=== PATIENT | male | born 1970 | race Caucasian/White ===

== ENCOUNTER 2021-02-20 12:23 | Inpatient (IN) | payer OTHER ==
[2021-02-20 13:01] LABS: BASOPHILS % (AUTO) 0.2 %; EOSINOPHILS # (AUTO) 0.1 10^3/uL (0.0-0.7); HCT - HEMATOCRIT 48.9 % (42.0-52.0); HGB - HEMOGLOBIN 16.5 g/dL (14.0-18.0); LYMPHOCYTES # (AUTO) 3.4 10^3/uL (1.5-3.5); LYMPHOCYTES % (AUTO) 23.3 %; MEAN CORPUSCULAR HEMOGLOBIN 30.7 pg (27.0-31.0); MEAN CORPUSCULAR HGB CONC 33.7 g/dL (32.0-36.0); MEAN CORPUSCULAR VOLUME 90.9 fL (80.0-94.0); MEAN PLATELET VOLUME 8.7 fL (7.4-11.4); MONOCYTES # (AUTO) 1.3 10^3/uL (0.0-1.0); MONOCYTES % (AUTO) 9.1 %; NEUTROPHILS # (AUTO) 9.6 10^3/uL (1.5-6.6); NEUTROPHILS % (AUTO) 66.1 %; PLT - PLATELET COUNT 421 10^3/uL (130-450); RED BLOOD COUNT 5.38 10^6/uL (4.70-6.10); RED CELL DISTRIBUTION WIDTH 13.2 % (12.0-15.0); WHITE BLOOD COUNT 14.5 x10^3/uL (4.8-10.8)
[2021-02-20 13:14] LABS: ALBUMIN 4.6 g/dL (3.2-5.5); ALBUMIN/GLOBULIN RATIO 1.1 (1.0-2.2); BILIRUBIN,TOTAL 0.9 mg/dL (0.2-1.0); POTASSIUM 4.5 mmol/L (3.5-5.0); TOTAL PROTEIN 8.8 g/dL (6.7-8.2)
--- NOTE | 2021-02-20 13:15 | ED Physician Documentation ---
PD HPI ABD PAIN - Stated complaint Stated Complaint: ABD PX - Chief complaint Chief Complaint: Abd Pain - History obtained from History obtained from: Patient - History of Present Illness Timing - details: Gradual onset, Waxing and waning Pain level max: 6 Pain level now: 4 Quality: Cramping, Aching, Sharp, Pain. No: Dull, Stabbing, Throbbing, Indigestion, Fullness/distended Location: All over / everywhere Radiation: No: Chest, , Lower back, Left flank, Left shoulder, Right flank, Right shoulder, Upper back Associated symptoms: Nausea, Vomiting, Constipation. No: Fever, Hematemesis, Diarrhea, Melena, Hematochezia, Dysuria Recently seen: Clinic - Additional information Additional information: Patient is a 51-year-old male who presents to the emergency department with intermittent abdominal pain for the past 3 to 4 weeks. Intermittent nausea and vomiting. He states he has been very constipated. Nothing makes it better or worse. Denies any fevers or chills. States he rarely drinks alcohol. He does smoke cigarettes regularly. Describes the pain as gas pain. It moves around the abdomen. Nonradiating. Patient has never had a colonoscopy. Patient has never had any abdominal surgeries. Review of Systems Constitutional: denies: Fever, Chills Respiratory: denies: Cough GI: reports: Nausea, Vomiting, Constipation. denies: Diarrhea Skin: denies: Rash Musculoskeletal: denies: Neck pain, Back pain PD PAST MEDICAL HISTORY - Past Medical History Past Medical History: Yes Cardiovascular: Hypertension, High cholesterol - Present Medications Home Medications: Ambulatory Orders Medication Instructions Recorded Confirmed Atorvastatin [Lipitor] 40 mg PO DAILY 02/20/21 02/20/21 Lisinopril [Zestril] 1 mg PO DAILY 02/20/21 02/20/21 Methylphenidate HCl 20 mg PO DAILY 02/20/21 02/20/21 [Methylphenidate ER] - Allergies Allergies/Adverse Reactions: Allergies Allergy/AdvReac Type Severity Reaction Status Date / Time No Known Drug Allergies Allergy Verified 02/20/21 12:42 - Living Situation Living Situation: reports: With family Living Arrangement: reports: At home - Social History Does the pt smoke?: Yes Smoking Status: Current every day smoker Does the pt drink ETOH?: Yes Does the pt have substance abuse?: No PD ED PE NORMAL - Vitals Vital signs reviewed: Yes - General General: Alert and oriented X 3, No acute distress, Well developed/nourished - HEENT HEENT: PERRL, Moist mucous membranes - Neck Neck: Supple, no meningeal sign - Cardiac Cardiac: RRR, Strong equal pulses - Respiratory Respiratory: No respiratory distress, Clear bilaterally - Abdomen Abdomen: Soft, Non distended, Other (Diffusely tender to palpation along the right side of the abdomen. Mild distention. No peritoneal signs.) - Derm Derm: Warm and dry - Extremities Extremities: No deformity - Neuro Neuro: Alert and oriented X 3 - Psych Psych: Normal mood, Normal affect Results - Vitals Vitals: Vital Signs - 24 hr 02/20/21 02/20/21 12:36 15:12 Temperature 36.7 C Heart Rate 86 80 Respiratory 15 16 Rate Blood Pressure 135/91 H 145/107 H O2 Saturation 96 100 Oxygen O2 Source Room air - Labs Labs: Laboratory Tests 02/20/21 02/20/21 02/20/21 12:54 12:54 13:12 WBC 14.5 H RBC 5.38 Hgb 16.5 Hct 48.9 MCV 90.9 MCH 30.7 MCHC 33.7 RDW 13.2 Plt Count 421 MPV 8.7 Neut # (Auto) 9.6 H Lymph # (Auto) 3.4 [place] # (Auto) 1.3 H Eos # (Auto) 0.1 Baso # (Auto) 0.0 Absolute Nucleated RBC 0.00 Nucleated RBC % 0.0 Sodium 137 Potassium 4.5 Chloride 100 L Carbon Dioxide 25 Anion Gap 12.0 BUN 17 Creatinine 1.0 Estimated GFR (MDRD) 79 L Glucose 113 H Calcium 10.0 Total Bilirubin 0.9 AST 21 ALT 20 Alkaline Phosphatase 194 H Total Protein 8.8 H Albumin 4.6 Globulin 4.2 Albumin/Globulin Ratio 1.1 Lipase 22 Urine Color DARK YELLOW Urine Clarity CLEAR Urine pH 6.0 Ur Specific [place] >=1.030 H Urine Protein 100 H Urine Glucose (UA) NEGATIVE Urine Ketones 15 H Urine Occult Blood NEGATIVE Urine Nitrite NEGATIVE Urine Bilirubin NEGATIVE Urine Urobilinogen 1 (NORMAL) Ur Leukocyte Esterase NEGATIVE Urine RBC 0-5 Urine WBC 0-3 Ur Squamous Epith Cells NONE SEEN Urine Bacteria Few Urine Mucus Moderate Strands Ur Microscopic Review INDICATED Urine Culture Comments NOT INDICATED - Rads (name of study) CT abd/pelvis Radiology: Prelim report reviewed, EMP read contemporaneously, See rad report PD MEDICAL DECISION MAKING - ED course Complexity details: reviewed results, re-evaluated patient, considered differential, d/w patient, d/w benefits consultant ED course: Patient is a 51-year-old male who presents to the emergency department with abdominal pain, constipation and vomiting. CT scan appears to have a liver mass as well as a likely colonic mass on image 60 of the transverse cuts and image 34 of the coronal cuts. I consulted Dr. Kemp, general surgery who will evaluate the patient and plan on colonoscopy in the morning. Also discussed with Dr. Pickett, hospitalist who accepts. Will place in observation. NG tube held at this time as the patient is not actively vomiting. This document was made in part using voice recognition software. While efforts are made to proofread this document, sound alike and grammatical errors may occur. Departure - Departure Disposition: ED Place in Observation Clinical Impression: Liver mass Bowel obstruction Qualifiers: Intestinal obstruction type: other intestinal obstruction Intestinal obstruction extent: partial Qualified Code(s): K56.690 - Other partial intestinal obstruction Condition: Stable
[2021-02-20] MEDS ORDERED: IOVERSOL 320 100 ML VIAL IVP ONE ×2 (13:18→15:13)
[2021-02-20] MEDS ORDERED: IOVERSOL 320 50 ML VIAL ONE (13:18)
[2021-02-20 13:36] LABS: GLUCOSE, URINE (UA) NEGATIVE (NEGATIVE); KETONES,URINE (UA) 15 mg/dL (NEGATIVE); LEUKOCYTE ESTERASE, URINE NEGATIVE (NEGATIVE); NITRITE,URINE NEGATIVE (NEGATIVE); OCCULT BLOOD,URINE NEGATIVE (NEGATIVE); PROTEIN,URINE 100 mg/dL (NEGATIVE); UROBILINOGEN,URINE 1 (NORMAL) E.U./dL (NORMAL)
[2021-02-20 13:41] LABS: BILIRUBIN,URINE NEGATIVE (NEGATIVE); CLARITY,URINE CLEAR (CLEAR); ICTOTEST,URINE NEGATIVE
[2021-02-20 14:03] LABS: BACTERIA,URINE Few /HPF (None Seen); MUCUS,URINE Moderate Strands; RBC,URINE 0-5 /HPF (0-5); SQUAMOUS EPITHELIAL CELL,UR NONE SEEN (<= Few); WBC,URINE 0-3 /HPF (0-3)
[2021-02-20] MEDS ORDERED: MORPHINE 2 MG/ML CARPUJECT IVP STA (14:36)
--- NOTE | 2021-02-20 15:32 | CT Report ---
PROCEDURE: Abdomen/Pelvis W INDICATIONS: diffuse abd pain CONTRAST: IV CONTRAST: Optiray 320 ml: 100 PO CONTRAST: Isovue 300 ml50 TECHNIQUE: After the administration of IV and oral contrast, 5 mm thick sections acquired from the diaphragms to the symphysis. 5 mm thick coronal and sagittal reformats were acquired. For radiation dose reducti on, the following was used: automated exposure control, adjustment of mA and/or kV according to anival ent size. COMPARISON: Correlation is made with lumbar spine MRI, 02/04/2013. FINDINGS: Image quality: Excellent. ABDOMEN: Lung bases: Mild dependent atelectasis can be seen. Heart size is normal. Solid organs: Within the left liver, there is a poorly defined low-density lesion seen, with decreas ed enhancement that measures nearly 10 cm. The liver overall demonstrates normal size. Gallbladder wall does not appear thickened. Biliary system is non dilated. Pancreas enhances norm ally. The spleen demonstrates normal size, without focal lesions. No adrenal nodules. Kidneys demons trate normal size and enhancement, without hydronephrosis. Peritoneum and bowel: The colon is prominent and filled with liquid stool. The transverse colon marlee ures 7.5 cm. The small bowel loops are prominent throughout, including the distal ileum and measure u p to 3 cm. A normal caliber, yet elongated appendix can be seen. No free fluid or air. Nodes and vessels: No retroperitoneal or mesenteric adenopathy by size criteria. Aorta and inferior vena cava are normal in size. Miscellaneous: No ventral hernias. PELVIS: Genitourinary: Bladder wall thickness is normal. Miscellaneous: No inguinal adenopathy. There is an inguinal hernia seen on the right, which contain s fat and fluid. A mild to containing left inguinal hernia can also be seen. Bones: No suspicious bony lesions. No vertebral body compression fractures. Mild levoconvex scolio tic curvature is seen. IMPRESSION: Prominent colon, which is filled with liquid stool. Prominence of the small bowel is als o seen. Diffuse enterocolitis is suspected. There is a poorly defined low-density lesion seen within the right liver, which measures nearly 10 cm . The appearance is nonspecific, although differential diagnosis includes an abscess and a mass. When clinically appropriate, please consider follow-up right upper quadrant ultrasound for further evalua tion. Incidental note is made of: Levoconvex scoliotic curvature Bilateral inguinal hernias, right larger than left Reviewed by: Brennan Peña MD on 02/20/2021 2:31 PM JERRELL Approved by: Brennan Peña MD on 02/20/2021 2:31 PM JERRELL Station ID: [id number]
[2021-02-20] MEDS ORDERED: LACTATED RINGERS 1,000 ML IV ONE (16:25)
--- NOTE | 2021-02-20 16:25 | HISTORY & PHYSICAL EXAMINATION ---
Chief Complaint - Chief Complaint Chief Complaint: Abdominal pain History of Present Illness - Admitted From Admitted From:: Home - History Obtained From Records Reviewed: Yes History obtained from: Patient, Spouse, ER Physician, EMR - History of Present Illness HPI Comment/Other: This is a 51-year-old male with a past medical history significant for hypertension who presents today complaining of abdominal pain associated with nausea vomiting. He states about 2 to 3 months ago he started to develop abdominal bloating and distention. This progressed over the past 2 to 3 days where he has had significant left lower quadrant abdominal pain that now radiates throughout his lower abdomen. He states he been unable to keep down any fluids whatsoever. He has only been able to keep down liquids. He believes he has lost about 12 pounds over the past couple of weeks due to decreased appetite and concern over his nausea and vomiting. He reports no fevers or chills. He believes he is passing gas every once in a while. He was prescribed a laxative recently without improvement in his symptoms. He has never had a colonoscopy or abdominal surgeries. He does not today that his mother has a history of colon cancer and he believes one of his younger brothers may have history of colon cancer. CT in the emergency department after review with general surgery and the emergency room physician was concerning for potential colonic mass causing partial small bowel obstruction. He was also noted to have liver mass. Given these findings, medicine was asked to place patient in observation for colonoscopy tomorrow. History - Past Medical History Cardiovascular: reports: Hypertension, High cholesterol - Family & Social History Family History Comment/Other: His mother was diagnosed with colon cancer and needed a colon resection. He believes his younger brother may also have a history of colon cancer. He has a brother with a history of heart disease who recently underwent CABG. Both of his grandfathers also had a history of heart disease. Living arrangement: At home Living Situation: With spouse/s.o. Social History Notes: He lives at home with his . He does not currently work. He smoked about half a pack a day since the age of 9. He rarely drinks alcohol. Meds/Allgy - Home Medications Home Medications: Ambulatory Orders Medication Instructions Recorded Confirmed Atorvastatin [Lipitor] 40 mg PO DAILY 02/20/21 02/20/21 Lisinopril [Zestril] 1 mg PO DAILY 02/20/21 02/20/21 Methylphenidate HCl 20 mg PO DAILY 02/20/21 02/20/21 [Methylphenidate ER] - Allergies Allergies/Adverse Reactions: Allergies Allergy/AdvReac Type Severity Reaction Status Date / Time No Known Drug Allergies Allergy Verified 02/20/21 12:42 Review of Systems - Constitutional Constitutional: reports: Chills, Poor appetite, Weight loss. denies: Fatigue, Fever - Cardiovascular Cariovascular: denies: Chest pain, Lightheadedness, Exertional dyspnea, Decr. exercise tolerance - Respiratory Respiratory: denies: SOB at rest, SOB with exertion - Gastrointestinal Gastrointestinal: reports: Abdominal pain, Abdominal distention, Constipation, Change in bowel habits, Nausea, Vomiting, Bloating, Poor appetite. denies: Black stools, Bloody stools, Coffee grounds emesis - Genitourinary Genitourinary: denies: Dysuria, Frequency, Urgency, Hematuria - Musculoskeletal Musculoskeletal: reports: Back pain. denies: Muscle pain - Integumentary Integumentary: denies: Rash - Neurological Neurological: denies: General weakness, Focal weakness, Dizziness - All Other Systems All Other Systems: reports: Reviewed and negative Prior Level of Functionality: He is independent with his ADLs. Exam - Vital Signs Reviewed Vital Signs: Yes Vital Signs: Vital Signs x48h Temp Pulse Resp BP Pulse Ox 02/20/21 15:12 80 16 145/107 H 100 02/20/21 12:36 36.7 C 86 15 135/91 H 96 - Physical Exam General Appearance: positive: No acute distress, Alert Eyes Bilateral: positive: Normal inspection, Conjunctivae nml ENT: positive: ENT inspection nml Neck: positive: Nml inspection Respiratory: positive: No respiratory distress. negative: Wheezes, Rales Cardiovascular: positive: Regular rate & rhythm, No murmur. negative: Tachycardia Abdomen: positive: Nml bowel sounds, Tenderness (He has diffuse tenderness throughout the lower abdomen.). negative: No distention (Mild abdominal distention), Guarding, Rebound Skin: positive: Warm, Dry Extremities: positive: No pedal edema Neurologic/Psychiatric: positive: Oriented x3, Motor nml. negative: Disoriented to person, Disoriented to place, Disoriented to time Conclusion/Plan - Problem List (1) Bowel obstruction Conclusion/Plan: Clinically he appears to have a partial bowel obstruction. CT after reviewing with the emergency room physician and general surgery appears to be concerning for potential colon mass which could be causing the obstruction. Given this, he will be placed in observation for colonoscopy tomorrow and based off of that finding, he may need surgical intervention. He will be n.p.o. at midnight. Morphine as needed for pain control. Zofran as needed for nausea. Appreciate general surgery input. Qualifiers: Intestinal obstruction type: other intestinal obstruction Intestinal obstruction extent: partial Qualified Code(s): K56.690 - Other partial intestinal obstruction (2) Liver mass Conclusion/Plan: CT revealed a 10 cm liver mass. Low suspicion for an abscess based off of clinical presentation. Will order an ultrasound for further evaluation. (3) Hypertension Conclusion/Plan: He is currently hypertensive. He reports being noncompliant with his home lisinopril. We will look to resume this if his blood pressure remains elevated. - Lab Results Fish Bones: 02/20/21 12:54 02/20/21 12:54 Core Measures - Anticipated LOS I expect patient to be DC'd or transferred within 96 hours.: Yes - Issues Hospital Issues and Management Plan: 51-year-old male presents with abdominal pain associated with vomiting and constipation. Concern for potential colon mass causing partial bowel obstruction. Plan is for colonoscopy tomorrow with general surgery. - DVT/VTE - Prophylaxis VTE/DVT Device ordered at admit?: Yes VTE/DVT Prophylaxis med ordered at admit?: Yes
[2021-02-20 17:51] LABS: B. PARAPERTUSSIS- RESP PCR PAN NOT DETECTED; B. PERTUSSIS- RESP PCR PANEL NOT DETECTED; C. PNEUMONIAE- RESP PCR PANEL NOT DETECTED; CORONAVIRUS 229E-RESP PCR NOT DETECTED; CORONAVIRUS HKU1-RESP PCR NOT DETECTED; CORONAVIRUS NL63-RESP PCR NOT DETECTED; CORONAVIRUS OC43-RESP PCR NOT DETECTED; HUMAN METAPNEUMOVIRUS NOT DETECTED; INFLUENZA A- RESP PCR PANEL NOT DETECTED; INFLUENZA B - RESP PCR PANEL NOT DETECTED; M. PNEUMONIAE- RESP PCR PANEL NOT DETECTED; PARAINFLUENZA VIRUS 1 NOT DETECTED; PARAINFLUENZA VIRUS 2 NOT DETECTED; PARAINFLUENZA VIRUS 3 NOT DETECTED; PARAINFLUENZA VIRUS 4 NOT DETECTED; RHINOVIRUS/ENTEROVIRUS NOT DETECTED; RSV- RESP PCR PANEL NOT DETECTED; SARS-CoV-2 -RESP PCR PANEL NOT DETECTED
[2021-02-20] MEDS: SODIUM CHLORIDE FLUSH 0.9% 10 ML SYRINGE IVP SCH (17:52)
[2021-02-20] MEDS: LACTATED RINGERS 1,000 ML IV SCH (18:37)
[2021-02-20] MEDS: MORPHINE 2 MG/ML CARPUJECT IVP PRN (19:28)
[2021-02-20] MEDS: ONDANSETRON 4 MG/2 ML VIAL IVP PRN (19:28)
[2021-02-20] MEDS: SODIUM CHLORIDE FLUSH 0.9% 10 ML SYRINGE IVP PRN (19:28)
--- NOTE | 2021-02-20 22:28 | Ultrasound Report ---
PROCEDURE: Abdomen Limited INDICATIONS: Liver mass on CT. TECHNIQUE: Real-time focused scanning was performed of the abdomen, with image documentation. COMPARISON: CT abdomen and pelvis with contrast. FINDINGS: Liver is heterogeneous in echotexture. There is a heterogeneous [id number] solid m ass with irregular border in the left hepatic lobe measuring 8.0 x 8.5 x 8.7 cm. There is internal va scularity on Doppler ultrasound within the mass. Small gallstones are present in gallbladder. No gallbladder wall thickening. There is trace perichole cystic fluid. No sonographic Talley sign. Right kidney is not well seen because of overlying bowel gas. IMPRESSION: 1. A large heterogeneous solid mass with iso to-hyperechoic echotexture within the left hepatic lobe measuring 8.0 x 8.5 x 5.7 cm. The sonographic appearance does not suggest a benign hepatic hemangioma . Hepatic protocol CT or MRI is recommended for follow-up evaluation. If clinically indicated, this m ass can be biopsied under CT or ultrasound guidance. 2. Cholelithiasis. There is no gallbladder wall thickening. Trace pericholecystic fluid is noted. Reviewed by: Corky Weinstein MD on 02/20/2021 10:27 PM PDT Approved by: Corky Weinstein MD on 02/20/2021 10:27 PM PDT Station ID: [id number]
[2021-02-21] MEDS: ACETAMINOPHEN 325 MG TABLET PO PRN (00:02)
[2021-02-21] MEDS: SODIUM CHLORIDE FLUSH 0.9% 10 ML SYRINGE IVP SCH ×3 (00:05→17:09)
[2021-02-21] MEDS: LACTATED RINGERS 1,000 ML IV SCH ×3 (04:22→20:57)
[2021-02-21 05:56] LABS: BASOPHILS % (AUTO) 0.4 %; EOSINOPHILS # (AUTO) 0.3 10^3/uL (0.0-0.7); EOSINOPHILS % (AUTO) 3.1 %; HCT - HEMATOCRIT 42.6 % (42.0-52.0); HGB - HEMOGLOBIN 14.3 g/dL (14.0-18.0); LYMPHOCYTES # (AUTO) 3.3 10^3/uL (1.5-3.5); LYMPHOCYTES % (AUTO) 32.1 %; MEAN CORPUSCULAR HEMOGLOBIN 30.8 pg (27.0-31.0); MEAN CORPUSCULAR HGB CONC 33.6 g/dL (32.0-36.0); MEAN CORPUSCULAR VOLUME 91.6 fL (80.0-94.0); MONOCYTES # (AUTO) 0.9 10^3/uL (0.0-1.0); MONOCYTES % (AUTO) 9.2 %; NEUTROPHILS # (AUTO) 5.6 10^3/uL (1.5-6.6); NEUTROPHILS % (AUTO) 54.9 %; PLT - PLATELET COUNT 369 10^3/uL (130-450); RED BLOOD COUNT 4.65 10^6/uL (4.70-6.10); RED CELL DISTRIBUTION WIDTH 13.2 % (12.0-15.0); WHITE BLOOD COUNT 10.1 x10^3/uL (4.8-10.8)
[2021-02-21 06:05] LABS: CALCIUM 8.8 mg/dL (8.5-10.3); CREATININE 0.8 mg/dL (0.6-1.2); MAGNESIUM 2.1 mg/dL (1.7-2.8); POTASSIUM 4.3 mmol/L (3.5-5.0)
[2021-02-21] MEDS: ENOXAPARIN 40 MG/0.4 ML SYRINGE SUBQ SCH (08:31)
--- NOTE | 2021-02-21 09:44 | PROVIDER PROGRESS NOTE ---
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 Weight loss. Change in bowel function. Family history of colon cancer. Obstructive symptoms. Need for diagnostic colonoscopy. Objective Afebrile hemodynamically acceptable General Appearance: positive: No acute distress Eyes Bilateral: positive: Normal inspection ENT: positive: ENT inspection nml Neck: positive: Nml inspection Respiratory: positive: Chest non-tender, No respiratory distress, Breath sounds nml. negative: Wheezes, Rales, Rhonchi Cardiovascular: positive: Regular rate & rhythm Abdomen: Softly distended. No rebound or guarding. Extremities: positive: Non-tender, Full ROM, Nml appearance Neurologic/Psychiatric: positive: Oriented x3, CN's nml (2-12) Impression/Plan Colonoscopy indicated for diagnostic. Symptoms are as follows obstruction and abnormal imaging. Risks and benefits discussed at length. Informed consent obtained. Risks include but are not limited to, bleeding, infection, perforation, missed lesions, injury to local structures, need for further surgeries, and the periprocedural/sedation risks of heart attack stroke and . Patient was advised if any concerning areas were noted these would be sampled if too big to resect or performed for excision if within reasonable limits for endoscopic intervention. Please note that voice recognition software was used to transcribe this note and inadvertent errors might persist in spite of review and editing. I am obliged to you for your attention. I am thankful to you for allowing me to participate with you in this care of this patient.
--- NOTE | 2021-02-21 11:18 | ANESTHESIA ---
Pre-Anesthesia VS, & Labs - Diagnosis Colon mass - Procedure colonoscopy Vital Signs: Temp Pulse Resp BP Pulse Ox 37.0 C 71 18 121/88 H 94 02/21/21 08:06 02/21/21 08:06 02/21/21 08:06 02/21/21 08:06 02/21/21 08:06 Height: 5 ft 9 in Weight (kg): 82.962 kg Body Mass Index: 27.0 BMI Classification: Overweight - NPO >8 hours - Lab Results Current Lab Results: Laboratory Tests 02/21/21 05:16: Sodium 133 L, Potassium 4.3, Chloride 98 L, Carbon Dioxide 27, Anion Gap 8.0, BUN 13, Creatinine 0.8, Estimated GFR (MDRD) 102, Glucose 97, Calcium 8.8, Magnesium 2.1 02/21/21 05:16: WBC 10.1, RBC 4.65 L, Hgb 14.3, Hct 42.6, MCV 91.6, MCH 30.8, MCHC 33.6, RDW 13.2, Plt Count 369, MPV 9.0, Neut # (Auto) 5.6, Lymph # (Auto) 3.3, [place] # (Auto) 0.9, Eos # (Auto) 0.3, Baso # (Auto) 0.0, Absolute Nucleated RBC 0.00, Nucleated RBC % 0.0 02/20/21 12:54: Sodium 137, Potassium 4.5, Chloride 100 L, Carbon Dioxide 25, Anion Gap 12.0, BUN 17, Creatinine 1.0, Estimated GFR (MDRD) 79 L, Glucose 113 H , Calcium 10.0, Total Bilirubin 0.9, AST 21, ALT 20, Alkaline Phosphatase 194 H, Total Protein 8.8 H, Albumin 4.6, Globulin 4.2, Albumin/Globulin Ratio 1.1, Lipase 22 02/20/21 12:54: WBC 14.5 H, RBC 5.38, Hgb 16.5, Hct 48.9, MCV 90.9, MCH 30.7, MCHC 33.7, RDW 13.2, Plt Count 421, MPV 8.7, Neut # (Auto) 9.6 H, Lymph # (Auto) 3.4, [place] # (Auto) 1.3 H, Eos # (Auto) 0.1, Baso # (Auto) 0.0, Absolute Nucleated RBC 0.00, Nucleated RBC % 0.0 Fish Bones: 02/21/21 05:16 02/21/21 05:16 Home Medications and Allergies Home Medications: Ambulatory Orders Atorvastatin [Lipitor] 40 mg PO DAILY 02/20/21 Lisinopril [Zestril] 1 mg PO DAILY 02/20/21 Methylphenidate HCl [Methylphenidate ER] 20 mg PO DAILY 02/20/21 Active Medications Acetaminophen (Acetaminophen 325 Mg Tablet) 650 mg PO Q4HR PRN PRN Reason: Pain 1 to 4 Last Admin: 02/21/21 00:02 Dose: 650 mg Documented by: Enoxaparin Sodium (Enoxaparin 40 Mg/0.4 Ml Syringe) 40 mg SUBQ DAILY [facility] Last Admin: 02/21/21 08:31 Dose: 40 mg Documented by: Lactated Ringer's (Lr) 1,000 mls @ 100 mls/hr IV .Q10H [facility] Last Admin: 02/21/21 04:22 Dose: 100 mls/hr Documented by: Morphine Sulfate (Morphine 2 Mg/Ml Carpuject) 2 mg IVP Q2HR PRN PRN Reason: Pain 8 to 10 Last Admin: 02/20/21 19:28 Dose: 2 mg Documented by: Ondansetron HCl (Ondansetron 4 Mg/2 Ml Vial) 4 mg IVP Q6HR PRN PRN Reason: Nausea / Vomiting Last Admin: 02/20/21 19:28 Dose: 4 mg Documented by: Sodium Chloride (Sodium Chloride Flush 0.9% 10 Ml Syringe) 10 ml IVP PRN PRN PRN Reason: NEEDED PER PROVIDER ORDERS Last Admin: 02/20/21 19:28 Dose: 10 ml Documented by: Sodium Chloride (Sodium Chloride Flush 0.9% 10 Ml Syringe) 10 ml IVP 0100,0900,1700 [facility] Last Admin: 02/21/21 08:46 Dose: Not Given Documented by: Atorvastatin [Lipitor] 40 mg PO DAILY 02/20/21 Lisinopril [Zestril] 1 mg PO DAILY 02/20/21 Methylphenidate HCl [Methylphenidate ER] 20 mg PO DAILY 02/20/21 Allergies/Adverse Reactions: Allergies Allergy/AdvReac Type Severity Reaction Status Date / Time No Known Drug Allergies Allergy Verified 02/20/21 12:42 Anes History & Medical History - Anesthetic History Anesthesia Complications: reports: No previous complications - Medical History Cardiovascular: reports: Hypertension, High cholesterol Pulmonary: reports: None Gastrointestinal: reports: Other Urinary: reports: None Neuro: reports: None Musculoskeletal: reports: None Endocrine/Autoimmune: reports: None Blood Disorders: reports: None Skin: reports: None Smoking Status: Current every day smoker Psychosocial: reports: No issues indicated History of Cancer?: No - Surgical History Orthopedic: reports: Other (wrist) Exam General: Alert, Oriented x3, Cooperative, No acute distress Dental: WNL Mouth Openin Fingerbreadth Neck Mobility: Normal Mallampati classification: II Thyromental Distance: 4-6 cm Mental/Cognitive Status: Alert/Oriented X3, Normal for patient Plan Anesthesia Type: Total IV Consent for Procedure(s) Verified and Reviewed: Yes Code Status: Attempt Resuscitation ASA classification: 2-Mild systemic disease Is this case an emergency?: No
--- NOTE | 2021-02-21 11:20 | PHARMACY PROGRESS NOTE ---
- Best Possible Medication History Admit Date and Time: 02/20/21 3669 Processed by: Nursing Medication History completed: Yes As the person ultimately responsible for medication therapy, providers are able to order a medication from an existing home medication list in [facility] via the "Reconcile Routine" prior to Confirmation of that medication by support associate. Such practice is discouraged except when the physician, in their clinical judgment, deems that a medical need exists for a medication without regard to previous use.
[2021-02-21] MEDS: MORPHINE 2 MG/ML CARPUJECT IVP PRN ×3 (13:33→22:06)
[2021-02-21] MEDS ORDERED: PROPOFOL 200 MG/20 ML VIAL IVP ONE (13:46)
[2021-02-21] MEDS: ONDANSETRON 4 MG/2 ML VIAL IVP PRN (14:01)
--- NOTE | 2021-02-21 14:01 | PROVIDER PROGRESS NOTE ---
Subjective - Prog Note Date Prog Note Date: 02/21/21 - Subjective Subjective: He was doing well up until the NG tube was placed this afternoon. He complains of discomfort due to this. Current Medications - Current Medications Current Medications: Active Medications Acetaminophen (Acetaminophen 325 Mg Tablet) 650 mg PO Q4HR PRN PRN Reason: Pain 1 to 4 Last Admin: 02/21/21 00:02 Dose: 650 mg Documented by: Enoxaparin Sodium (Enoxaparin 40 Mg/0.4 Ml Syringe) 40 mg SUBQ DAILY [facility] Last Admin: 02/21/21 08:31 Dose: 40 mg Documented by: Lactated Ringer's (Lr) 1,000 mls @ 100 mls/hr IV .Q10H [facility] Last Admin: 02/21/21 13:33 Dose: 100 mls/hr Documented by: Morphine Sulfate (Morphine 2 Mg/Ml Carpuject) 2 mg IVP Q2HR PRN PRN Reason: Pain 8 to 10 Last Admin: 02/21/21 13:33 Dose: 2 mg Documented by: Ondansetron HCl (Ondansetron 4 Mg/2 Ml Vial) 4 mg IVP Q6HR PRN PRN Reason: Nausea / Vomiting Last Admin: 02/21/21 14:01 Dose: 4 mg Documented by: Sodium Chloride (Sodium Chloride Flush 0.9% 10 Ml Syringe) 10 ml IVP PRN PRN PRN Reason: NEEDED PER PROVIDER ORDERS Last Admin: 02/20/21 19:28 Dose: 10 ml Documented by: Sodium Chloride (Sodium Chloride Flush 0.9% 10 Ml Syringe) 10 ml IVP 0100,0900,1700 [facility] Last Admin: 02/21/21 08:46 Dose: Not Given Documented by: Atorvastatin [Lipitor] 40 mg PO DAILY 02/20/21 Lisinopril [Zestril] 1 mg PO DAILY 02/20/21 Methylphenidate HCl [Methylphenidate ER] 20 mg PO DAILY 02/20/21 Objective - Vital Signs/Intake & Output Reviewed Vital Signs: Yes Vital Signs: Vital Signs x48h Temp Pulse Resp BP Pulse Ox 02/21/21 11:37 36.8 C 75 18 137/86 H 95 02/21/21 08:06 37.0 C 71 18 121/88 H 94 Intake & Output: Intake & Output 02/18/21 02/19/21 02/20/21 02/21/21 23:59 23:59 23:59 23:59 Intake Total 1575 1838.333 Balance 1575 1838.333 - Objective General Appearance: positive: Alert, Mild distress Eyes Bilateral: positive: Normal inspection, Conjunctivae nml ENT: positive: ENT inspection nml, Other (NG tube in place.) Respiratory: positive: No respiratory distress. negative: Wheezes, Rales Cardiovascular: positive: Regular rate & rhythm, No murmur. negative: Tachycardia Skin: positive: Warm, Dry Extremities: positive: No pedal edema Neurologic/Psychiatric: positive: Motor nml. negative: Disoriented to person, Disoriented to place, Disoriented to time - Lab Results Fish Bones: 02/21/21 05:16 02/21/21 05:16 Other Labs: Lab Results x24hrs 02/21/21 02/21/21 02/20/21 Range/Units 05:16 05:16 16:48 WBC 10.1 (4.8-10.8) x10^3/uL RBC 4.65 L (4.70-6.10) 10^6/uL Hgb 14.3 (14.0-18.0) g/dL Hct 42.6 (42.0-52.0) % MCV 91.6 (80.0-94.0) fL MCH 30.8 (27.0-31.0) pg MCHC 33.6 (32.0-36.0) g/dL RDW 13.2 (12.0-15.0) % Plt Count 369 (130-450) 10^3/uL MPV 9.0 (7.4-11.4) fL Neut # (Auto) 5.6 (1.5-6.6) 10^3/uL Lymph # (Auto) 3.3 (1.5-3.5) 10^3/uL [place] # (Auto) 0.9 (0.0-1.0) 10^3/uL Eos # (Auto) 0.3 (0.0-0.7) 10^3/uL Baso # (Auto) 0.0 (0.0-0.1) 10^3/uL Absolute Nucleated RBC 0.00 x10^3/uL Nucleated RBC % 0.0 /100WBC Sodium 133 L (135-145) mmol/L Potassium 4.3 (3.5-5.0) mmol/L Chloride 98 L (101-111) mmol/L Carbon Dioxide 27 (21-32) mmol/L Anion Gap 8.0 (6-13) BUN 13 (6-20) mg/dL Creatinine 0.8 (0.6-1.2) mg/dL Estimated GFR (MDRD) 102 (>89) Glucose 97 (70-100) mg/dL Calcium 8.8 (8.5-10.3) mg/dL Magnesium 2.1 (1.7-2.8) mg/dL Urine RBC (0-5) /HPF Urine WBC (0-3) /HPF Ur Squamous Epith Cells (<= Few) Urine Bacteria (None Seen) /HPF Urine Mucus Urine Culture Comments Nasal Adenovirus (PCR) NOT DETECTED Nasal B. parapertussis DNA (PCR) NOT DETECTED Nasal Coronavir 229E PCR NOT DETECTED Nasal Coronavir HKU1 PCR NOT DETECTED Nasal Coronavir NL63 PCR NOT DETECTED Nasal Coronavir OC43 PCR NOT DETECTED Nasal Enterovir/Rhinovir PCR NOT DETECTED Nasal Influenza B PCR NOT DETECTED Nasal Influenza A PCR NOT DETECTED Nasal Parainfluen 1 PCR NOT DETECTED Nasal Parainfluen 2 PCR NOT DETECTED Nasal Parainfluen 3 PCR NOT DETECTED Nasal Parainfluen 4 PCR NOT DETECTED Nasal RSV (PCR) NOT DETECTED Nasal B.pertussis DNA PCR NOT DETECTED Nasal C.pneumoniae (PCR) NOT DETECTED Onel Human Metapneumo PCR NOT DETECTED Nasal M.pneumoniae (PCR) NOT DETECTED Nasal SARS-CoV-2 (PCR) NOT DETECTED 02/20/21 Range/Units 13:12 WBC (4.8-10.8) x10^3/uL RBC (4.70-6.10) 10^6/uL Hgb (14.0-18.0) g/dL Hct (42.0-52.0) % MCV (80.0-94.0) fL MCH (27.0-31.0) pg MCHC (32.0-36.0) g/dL RDW (12.0-15.0) % Plt Count (130-450) 10^3/uL MPV (7.4-11.4) fL Neut # (Auto) (1.5-6.6) 10^3/uL Lymph # (Auto) (1.5-3.5) 10^3/uL [place] # (Auto) (0.0-1.0) 10^3/uL Eos # (Auto) (0.0-0.7) 10^3/uL Baso # (Auto) (0.0-0.1) 10^3/uL Absolute Nucleated RBC x10^3/uL Nucleated RBC % /100WBC Sodium (135-145) mmol/L Potassium (3.5-5.0) mmol/L Chloride (101-111) mmol/L Carbon Dioxide (21-32) mmol/L Anion Gap (6-13) BUN (6-20) mg/dL Creatinine (0.6-1.2) mg/dL Estimated GFR (MDRD) (>89) Glucose (70-100) mg/dL Calcium (8.5-10.3) mg/dL Magnesium (1.7-2.8) mg/dL Urine RBC 0-5 (0-5) /HPF Urine WBC 0-3 (0-3) /HPF Ur Squamous Epith Cells NONE SEEN (<= Few) Urine Bacteria Few (None Seen) /HPF Urine Mucus Moderate Strands Urine Culture Comments NOT INDICATED Nasal Adenovirus (PCR) Nasal B. parapertussis DNA (PCR) Nasal Coronavir 229E PCR Nasal Coronavir HKU1 PCR Nasal Coronavir NL63 PCR Nasal Coronavir OC43 PCR Nasal Enterovir/Rhinovir PCR Nasal Influenza B PCR Nasal Influenza A PCR Nasal Parainfluen 1 PCR Nasal Parainfluen 2 PCR Nasal Parainfluen 3 PCR Nasal Parainfluen 4 PCR Nasal RSV (PCR) Nasal B.pertussis DNA PCR Nasal C.pneumoniae (PCR) Onel Human Metapneumo PCR Nasal M.pneumoniae (PCR) Nasal SARS-CoV-2 (PCR) ABX Reporting Has patient been on IV antibiotics over the past 48 hours?: No Assessment/Plan - Problem List (1) Bowel obstruction Impression: The concern is for a partial bowel obstruction secondary to colonic mass. He will be going for colonoscopy today with general surgery and if there is evidence of a mass then he will need surgical intervention. We will place him on a clear liquid diet after the colonoscopy. Morphine as needed for pain control. Zofran as needed for nausea. Qualifiers: Intestinal obstruction type: other intestinal obstruction Intestinal obstruction extent: partial Qualified Code(s): K56.690 - Other partial in testinal obstruction (2) Liver mass Impression: Abdominal ultrasound confirmed a large left hepatic lobe mass which did not appear to be a benign hepatic angioma and therefore we will order MRI with and without contrast for further evaluation. (3) Hypertension Impression: His blood pressure is better today with systolics in the 120s to 130s. He has not been taking lisinopril he had been prescribed. We will continue to monitor and consider adding lisinopril if he does become hypertensive.
--- NOTE | 2021-02-21 14:37 | XRAY Report ---
PROCEDURE: No-Charge 1V Abdomen INDICATIONS: NG tube placement. TECHNIQUE: 1 view of the abdomen were acquired. COMPARISON: CT abdomen pelvis 721 FINDINGS: Surgical changes and devices: Nasogastric tube is noted coiled projecting below the left hemiabdomen. Bowel: No pneumoperitoneum. Contrast is noted within the colon is distended with recent contrast adm inistration. The remaining prominent partially visualized loops of bowel. Soft tissues: No masses; visualized solid organ contours appear normal in size. No suspicious abdom inal calcifications. Bones: No suspicious bony abnormalities. IMPRESSION: NG tube as above. Persistent mildly prominent loops of bowel, better appreciated on CT a bdomen. Reviewed by: Mandy Gramajo MD on 02/21/2021 2:36 PM PDT Approved by: Mandy Gramajo MD on 02/21/2021 2:36 PM PDT Station ID: [id number]
--- NOTE | 2021-02-21 15:39 | PROVIDER PROGRESS NOTE ---
Progress Note 51-year-old male with family history of colorectal cancer who presents with unintended weight loss, worsening obstruction with change in bowel function. CT scan consistent with apple core lesion. Large hepatic lobe mass as well. Patient candidate for diagnostic colonoscopy. In discussions with anesthesia, nasogastric tube placed to reduce risk of aspiration periprocedural. Placed by myself. Radiographic confirmation of nasogastric tube within the stomach. Flexible sigmoidoscopy without bowel prep per below: 1. Extensive retained stool. 2. At 40 to 50 cm there was a significant luminal caliber change that could not be traversed with a masslike lesion which was biopsied. This was completely obstructing. 3. This area was cold biopsy performed retrieved. 4. This area was also performed distally for ink tattoo for mucosal marking. 5. Internal hemorrhoids appreciated. Would recommend the following plan: 1. PICC line placement for TPN 2. Bowel rest with nothing per os 3. Plan for diverting loop colostomy and diagnostic laparoscopy with liver biopsy 4. We will assume the care of this patient on the surgical service. Please note that voice recognition software was used to transcribe this note and inadvertent errors might persist in spite of review and editing. I am obliged to you for your attention. I am thankful to you for allowing me to participate with you in this care of this patient.
[2021-02-21] MEDS ORDERED: GADOBUTROL 10 MMOL/10 ML VIAL ONE (15:44)
--- NOTE | 2021-02-21 16:57 | ANESTHESIA POST OP EVALUATION ---
Anesthesia Post Eval - Post Anesthesia Eval Vitals: Last Vital Signs Temp 36.7 C 02/21/21 15:34 Pulse 86 02/21/21 15:34 Resp 16 02/21/21 15:34 BP 140/94 H 02/21/21 15:34 Pulse Ox 91 L 02/21/21 15:34 CV Function Including HR & BP: Stable Pain Control: Satisfactory Nausea & Vomiting: Negative Mental Status: Baseline Respiratory Status: Airway Patent Hydration Status: Satisfactory Anesthesia Complications: None
[2021-02-21] MEDS: PHENOL THROAT SPRAY 177 ML MM PRN ×2 (17:09→20:58)
[2021-02-21] MEDS ORDERED: GADOBUTROL 10 MMOL/10 ML VIAL IVP ONE (17:43)
[2021-02-22] MEDS: SODIUM CHLORIDE FLUSH 0.9% 10 ML SYRINGE IVP SCH ×4 (00:18→23:45)
[2021-02-22 06:02] LABS: BASOPHILS % (AUTO) 0.3 %; EOSINOPHILS # (AUTO) 0.2 10^3/uL (0.0-0.7); EOSINOPHILS % (AUTO) 1.8 %; HCT - HEMATOCRIT 39.1 % (42.0-52.0); HGB - HEMOGLOBIN 13.2 g/dL (14.0-18.0); LYMPHOCYTES # (AUTO) 2.8 10^3/uL (1.5-3.5); LYMPHOCYTES % (AUTO) 28.3 %; MEAN CORPUSCULAR HEMOGLOBIN 30.8 pg (27.0-31.0); MEAN CORPUSCULAR HGB CONC 33.8 g/dL (32.0-36.0); MEAN CORPUSCULAR VOLUME 91.4 fL (80.0-94.0); MEAN PLATELET VOLUME 8.8 fL (7.4-11.4); MONOCYTES # (AUTO) 1.2 10^3/uL (0.0-1.0); MONOCYTES % (AUTO) 11.7 %; NEUTROPHILS # (AUTO) 5.8 10^3/uL (1.5-6.6); NEUTROPHILS % (AUTO) 57.6 %; PLT - PLATELET COUNT 319 10^3/uL (130-450); RED BLOOD COUNT 4.28 10^6/uL (4.70-6.10); RED CELL DISTRIBUTION WIDTH 12.9 % (12.0-15.0)
[2021-02-22] MEDS: LACTATED RINGERS 1,000 ML IV SCH ×2 (06:05→15:44)
[2021-02-22 06:16] LABS: CALCIUM 8.4 mg/dL (8.5-10.3); CREATININE 0.9 mg/dL (0.6-1.2); POTASSIUM 3.9 mmol/L (3.5-5.0)
[2021-02-22] MEDS: ENOXAPARIN 40 MG/0.4 ML SYRINGE SUBQ SCH (08:56)
--- NOTE | 2021-02-22 09:21 | MRI Report ---
PROCEDURE: Abdomen W/WO INDICATIONS: Liver mass. CONTRAST: IV CONTRAST: Optiray 320 ml: 803 TECHNIQUE: Coronal ultra fast SE, axial 2D spoiled GE in- and [id number]; axial breath-hold T2 fast SE. Dynam ic axial ultra fast GE during the administration of contrast; post-contrast coronal ultra fast GE or 2D spoiled GE with fat saturation from the hepatic dome to the iliac crests. Optional diffusion weig hted imaging and ADC may be performed. COMPARISON: CT 02/20/2021, ultrasound 02/20/2021 FINDINGS: Image quality: Suboptimal due to motion and technique. Lung bases: Small bibasilar consolidations. No effusion. Heart size is normal. Solid organs: The liver is normal in size and signal. There is a large solid, heterogeneous, minimal ly T2 hyperintense mass encompassing much of the left hepatic lobe measuring about 10.0 x 7.2 x 7.9 c m displacing small biliary radicals and causing peripheral biliary dilatation. Postcontrast, there is mild increased arterial enhancement in the surrounding parenchyma. There is delayed enhancement of s everal internal septations. Overall the mass is hypoenhancing compared to liver parenchyma. No other liver lesions. The spleen is normal size. Gallbladder is normal. Biliary system is non dilated. Pancreas is normal in morphology. No adrenal nodules. Both kidneys demonstrate normal size and enhancement, without h ydronephrosis. Nodes and vessels: No retroperitoneal or mesenteric adenopathy by size criteria. Aorta and inferior vena cava are normal in size. Bowel and peritoneum: There is dilatation of the colon to a transition point in the distal descending colon. Small bowel and stomach appear grossly normal. Bones and soft tissues: No ventral hernias. Bone marrow is normal in overall signal. IMPRESSION: 1. 10.0 cm septated, hypoenhancing solid liver mass in the left hepatic lobe. Differential diagnosis is suspicious for neoplasm, malignant etiologies such as metastatic disease and peripheral cholangioc arcinoma are favored. An adenoma is possible but much less likely. 2. Dilated loops of colon are again seen. The distal descending colon transition point is best seen o n the CT scan. 3. Small bibasilar consolidations, likely atelectatic change. No effusion. 4. Discussed with the hospitalist Dr. Ahmadi at 0910 AM on 02/22/21. Reviewed by: Adina Snow MD on 02/22/2021 9:19 AM PDT Approved by: Adina Snow MD on 02/22/2021 9:19 AM PDT Station ID: [id number]
[2021-02-22] MEDS: MORPHINE 2 MG/ML CARPUJECT IVP PRN ×2 (14:04→20:35)
--- NOTE | 2021-02-22 14:10 | PROVIDER PROGRESS NOTE ---
Assessment/Plan - Problem List (1) Bowel obstruction Qualifiers: Intestinal obstruction type: other intestinal obstruction Intestinal obstruction extent: partial Qualified Code(s): K56.690 - Other partial intestinal obstruction Assessment/Plan: The patient remains n.p.o. and has NG tube to continuous suction which continues to drain. Plan will be for surgery tomorrow regarding the colon mass and then further bowel care per surgical team (2) Mass of colon Assessment/Plan: On the colonoscopy there was an obstructing mass seen in the colon. The general surgeon is planning surgery tomorrow at 1100. (3) Pre-op evaluation Assessment/Plan: This patient's revised cardiac risk index equals 1point (for intraperitoneal surgery), this gives him a 6% 30-day risk of AL or cardiac arrest. (4) Liver mass Assessment/Plan: The radiologist called me with results of the MRI which showed the liver mass as well as continued air-fluid levels signifying bowel obstruction. General surgery plans to do a biopsy of the liver mass when he is in the OR tomorrow (5) Hypertension Assessment/Plan: Currently vital signs are stable on his present medications and management - Current Meds Current Meds: Current Medications Generic Name Dose Route Start Last Admin Trade Name Freq PRN Reason Stop Dose Admin Acetaminophen 650 mg 02/20/21 16:22 02/21/21 00:02 Acetaminophen 325 Mg Tablet PO 650 mg Q4HR PRN Administration Pain 1 to 4 Enoxaparin Sodium 40 mg 02/21/21 09:00 02/22/21 08:56 Enoxaparin 40 Mg/0.4 Ml Syringe SUBQ 40 mg DAILY [facility] Administration Lactated Ringer's 1,000 mls @ 100 mls/hr 02/20/21 17:00 02/22/21 06:05 Lr IV 100 mls/hr .Q10H [facility] Administration Morphine Sulfate 2 mg 02/20/21 16:22 02/22/21 14:04 Morphine 2 Mg/Ml Carpuject IVP 2 mg Q2HR PRN Administration Pain 8 to 10 Ondansetron HCl 4 mg 02/20/21 16:22 02/21/21 14:01 Ondansetron 4 Mg/2 Ml Vial IVP 4 mg Q6HR PRN Administration Nausea / Vomiting Phenol/Menthol 2 sprays 02/21/21 16:51 02/21/21 20:58 Phenol Throat [place] 177 Ml MM 2 sprays Q2HR PRN Administration Throat Pain Sodium Chloride 10 ml 02/20/21 16:22 02/20/21 19:28 Sodium Chloride Flush 0.9% 10 Ml Syringe IVP 10 ml PRN PRN Administration NEEDED PER PROVIDER ORDERS Sodium Chloride 10 ml 02/20/21 17:00 02/22/21 08:49 Sodium Chloride Flush 0.9% 10 Ml Syringe IVP Not Given 0100,0900,1700 [facility] - Lab Result Fish Bone Diagrams: 02/23/21 06:14 02/23/21 06:14 Subjective - Subjective Patient Reports: Other (Abdomen feels bloated and slightly uncomfortable, NG tube is causing nasal drainage and itching) Objective Vital Signs: Vital Signs - 24 hr 02/21/21 02/21/21 02/21/21 15:05 15:17 15:34 Temperature 36.7 C 36.8 C 36.7 C Heart Rate [ 91 86 Brachial] Respiratory 16 16 16 Rate Blood Pressure 154/98 H 144/97 H 140/94 H [Right Brachial artery] Blood Pressure [Right Radial artery] O2 Saturation 95 94 91 L 02/21/21 02/21/21 02/21/21 17:00 17:35 19:53 Temperature 36.8 C 37.3 C Heart Rate [ 86 91 Brachial] Respiratory 18 18 Rate Blood Pressure 158/99 H 142/99 H [Right Brachial artery] Blood Pressure [Right Radial artery] O2 Saturation 93 96 96 02/22/21 02/22/21 02/22/21 00:00 05:00 07:38 Temperature 37.2 C 37.2 C 37.1 C Heart Rate [ 97 89 87 Brachial] Respiratory 18 18 16 Rate Blood Pressure 152/97 H 152/96 H [Right Brachial artery] Blood Pressure 151/85 H [Right Radial artery] O2 Saturation 96 94 94 02/22/21 12:16 Temperature 37.2 C Heart Rate [ 95 Brachial] Respiratory 18 Rate Blood Pressure 154/94 H [Right Brachial artery] Blood Pressure [Right Radial artery] O2 Saturation 93 Oxygen O2 Source Room air I&O (Last 24 Hrs): Intake and Output Totals x24h 02/20/21 02/21/21 02/22/21 23:59 23:59 23:59 Intake Total 1575 2491.666 913.333 Output Total 900 2050 Balance 1575 1591.666 -2706.668 General: Alert, Oriented x3 HEENT: Mucous membr. moist/pink, Other ( ng tube in place) Neck: Supple, No JVD Neuro: Alert, Non Focal Cardiovascular: Regular rate Respiratory: No respiratory distress Abdomen: Other (Mildly distended, hypertympanic, no bowel sounds, no guarding or rebound) Extremities: No edema - Results Results: Laboratory Results WBC 10.0 x10^3/uL (4.8-10.8) 02/22/21 05:54 RBC 4.28 10^6/uL (4.70-6.10) L 02/22/21 05:54 Hgb 13.2 g/dL (14.0-18.0) L 02/22/21 05:54 Hct 39.1 % (42.0-52.0) L 02/22/21 05:54 MCV 91.4 fL (80.0-94.0) 02/22/21 05:54 MCH 30.8 pg (27.0-31.0) 02/22/21 05:54 MCHC 33.8 g/dL (32.0-36.0) 02/22/21 05:54 RDW 12.9 % (12.0-15.0) 02/22/21 05:54 Plt Count 319 10^3/uL (130-450) 02/22/21 05:54 MPV 8.8 fL (7.4-11.4) 02/22/21 05:54 Neut # (Auto) 5.8 10^3/uL (1.5-6.6) 02/22/21 05:54 Lymph # (Auto) 2.8 10^3/uL (1.5-3.5) 02/22/21 05:54 [place] # (Auto) 1.2 10^3/uL (0.0-1.0) H 02/22/21 05:54 Eos # (Auto) 0.2 10^3/uL (0.0-0.7) 02/22/21 05:54 Baso # (Auto) 0.0 10^3/uL (0.0-0.1) 02/22/21 05:54 Absolute Nucleated RBC 0.00 x10^3/uL 02/22/21 05:54 Nucleated RBC % 0.0 /100WBC 02/22/21 05:54 Sodium 134 mmol/L (135-145) L 02/22/21 05:54 Potassium 3.9 mmol/L (3.5-5.0) 02/22/21 05:54 Chloride 96 mmol/L (101-111) L 02/22/21 05:54 Carbon Dioxide 28 mmol/L (21-32) 02/22/21 05:54 Anion Gap 10.0 (6-13) 02/22/21 05:54 BUN 11 mg/dL (6-20) 02/22/21 05:54 Creatinine 0.9 mg/dL (0.6-1.2) 02/22/21 05:54 Estimated GFR (MDRD) 89 (>89) 02/22/21 05:54 Glucose 83 mg/dL (70-100) 02/22/21 05:54 POC Whole Bld Glucose 87 mg/dL (70 - 100) 02/22/21 11:14 Calcium 8.4 mg/dL (8.5-10.3) L 02/22/21 05:54 Magnesium 2.0 mg/dL (1.7-2.8) 02/22/21 05:54 Total Bilirubin 0.9 mg/dL (0.2-1.0) 02/20/21 12:54 AST 21 IU/L (10-42) 02/20/21 12:54 ALT 20 IU/L (10-60) 02/20/21 12:54 Alkaline Phosphatase 194 IU/L (42-121) H 02/20/21 12:54 Total Protein 8.8 g/dL (6.7-8.2) H 02/20/21 12:54 Albumin 4.6 g/dL (3.2-5.5) 02/20/21 12:54 Globulin 4.2 g/dL (2.1-4.2) 02/20/21 12:54 Albumin/Globulin Ratio 1.1 (1.0-2.2) 02/20/21 12:54 Lipase 22 U/L (22-51) 02/20/21 12:54 Carcinoembryonic Ag 15.6 ng/mL 02/22/21 05:54 Urine Color DARK YELLOW 02/20/21 13:12 Urine Clarity CLEAR (CLEAR) 02/20/21 13:12 Urine pH 6.0 PH (5.0-7.5) 02/20/21 13:12 Ur Specific [place] >=1.030 (1.002-1.030) H 02/20/21 13:12 Urine Protein 100 mg/dL (NEGATIVE) H 02/20/21 13:12 Urine Glucose (UA) NEGATIVE mg/dL (NEGATIVE) 02/20/21 13:12 Urine Ketones 15 mg/dL (NEGATIVE) H 02/20/21 13:12 Urine Occult Blood NEGATIVE (NEGATIVE) 02/20/21 13:12 Urine Nitrite NEGATIVE (NEGATIVE) 02/20/21 13:12 Urine Bilirubin NEGATIVE (NEGATIVE) 02/20/21 13:12 Urine Urobilinogen 1 (NORMAL) E.U./dL (NORMAL) 02/20/21 13:12 Ur Leukocyte Esterase NEGATIVE (NEGATIVE) 02/20/21 13:12 Urine RBC 0-5 /HPF (0-5) 02/20/21 13:12 Urine WBC 0-3 /HPF (0-3) 02/20/21 13:12 Ur Squamous Epith Cells NONE SEEN (<= Few) 02/20/21 13:12 Urine Bacteria Few /HPF (None Seen) 02/20/21 13:12 Urine Mucus Moderate Strands 02/20/21 13:12 Ur Microscopic Review INDICATED 02/20/21 13:12 Urine Culture Comments NOT INDICATED 02/20/21 13:12 Nasal Adenovirus (PCR) NOT DETECTED 02/20/21 16:48 Nasal B. parapertussis DNA (PCR) NOT DETECTED 02/20/21 16:48 Nasal Coronavir 229E PCR NOT DETECTED 02/20/21 16:48 Nasal Coronavir HKU1 PCR NOT DETECTED 02/20/21 16:48 Nasal Coronavir NL63 PCR NOT DETECTED 02/20/21 16:48 Nasal Coronavir OC43 PCR NOT DETECTED 02/20/21 16:48 Nasal Enterovir/Rhinovir PCR NOT DETECTED 02/20/21 16:48 Nasal Influenza B PCR NOT DETECTED 02/20/21 16:48 Nasal Influenza A PCR NOT DETECTED 02/20/21 16:48 Nasal Parainfluen 1 PCR NOT DETECTED 02/20/21 16:48 Nasal Parainfluen 2 PCR NOT DETECTED 02/20/21 16:48 Nasal Parainfluen 3 PCR NOT DETECTED 02/20/21 16:48 Nasal Parainfluen 4 PCR NOT DETECTED 02/20/21 16:48 Nasal RSV (PCR) NOT DETECTED 02/20/21 16:48 Nasal B.pertussis DNA PCR NOT DETECTED 02/20/21 16:48 Nasal C.pneumoniae (PCR) NOT DETECTED 02/20/21 16:48 Onel Human Metapneumo PCR NOT DETECTED 02/20/21 16:48 Nasal M.pneumoniae (PCR) NOT DETECTED 02/20/21 16:48 Nasal SARS-CoV-2 (PCR) NOT DETECTED 02/20/21 16:48
[2021-02-22] MEDS ORDERED: IOVERSOL 320 100 ML VIAL IVP ONE ×2 (17:25→17:27)
--- NOTE | 2021-02-22 18:29 | CT Report ---
PROCEDURE: CHEST W INDICATIONS: evaluate for metastases CONTRAST: IV CONTRAST: Optiray 320 ml: 100 PO CONTRAST: *NO PO CONTRAST TECHNIQUE: After the administration of intravenous contrast, images were acquired from the pulmonary apices to t he posterior costophrenic angles. Multiplanar MIP reformats were acquired. For radiation dose reduc tion, the following was used: automated exposure control, adjustment of mA and/or kV according to pa tient size. COMPARISON: None. FINDINGS: Image quality: Excellent. Lungs and pleura: No acute air space opacities. Mild bibasilar atelectasis. No pleural effusions or pneumothorax. Central and peripheral airways are patent and normal in caliber. No septal thickening or nodularity. Mediastinum: Heart size is normal. No pericardial effusion. Coronary artery atherosclerotic calcifi cations. No mediastinal or hilar adenopathy by size criteria. Thoracic aorta and central pulmonary a rteries are normal in size. Esophagus is normal in caliber. No hiatal hernia. Nasogastric tube exte nds into the stomach. Bones and chest wall: No suspicious bony lesions. No acute vertebral body compression fractures. N o axillary or supraclavicular adenopathy by size criteria. The thyroid is normal in size and there a re no incidental findings.. Abdomen: There is an ill-defined, expansile mass involving the left hepatic lobe measuring 9.5 x 7.9 cm in maximum transverse cross sectional dimension (axial image 52, series 3) and approximately 8.2 cm in craniocaudal dimension as measured on coronal image 19, series 6. There is a prominent periport al lymph node measuring 1.3 cm in short axis dimension (axial image 60, series 3. Remainder of the vi sualized upper abdominal solid organs appear unremarkable. Upper abdominal bowel loops are normal in caliber. IMPRESSION: #1. Ill-defined, expansile left hepatic lobe mass measuring 9.5 x 7.9 x 8.2 cm. There is a prominent periportal lymph node measuring up to 1.3 cm in short axis dimension. Otherwise, no evidence for pulm onary metastases. 2. No acute cardiopulmonary abdomen disease. CLINICAL RECOMMENDATION STATEMENTS: In patients <35 years with an ITN detected on CT, MRI, or extrathyroidal ultrasound, the Committee re commends further evaluation with dedicated thyroid ultrasound if the nodule is ?1 cm and has no suspi cious imaging features, and if the patient has normal life expectancy. In patients ?35 years with an ITN detected on CT, MRI, or extrathyroidal ultrasound, the Committee re commends further evaluation with dedicated thyroid ultrasound if the nodule is ?1.5 cm and has no jovana picious imaging features, and if the patient has normal life expectancy. (ACR, 2014) Reviewed by: Piero Smith MD on 02/22/2021 6:27 PM PDT Approved by: Piero Smith MD on 02/22/2021 6:27 PM PDT Station ID: [id number]
[2021-02-23] MEDS: LACTATED RINGERS 1,000 ML IV SCH ×2 (01:21→11:12)
[2021-02-23 06:47] LABS: BASOPHILS # (AUTO) 0.1 10^3/uL (0.0-0.1); BASOPHILS % (AUTO) 0.4 %; EOSINOPHILS # (AUTO) 0.2 10^3/uL (0.0-0.7); EOSINOPHILS % (AUTO) 1.4 %; HCT - HEMATOCRIT 41.9 % (42.0-52.0); HGB - HEMOGLOBIN 13.7 g/dL (14.0-18.0); LYMPHOCYTES # (AUTO) 2.6 10^3/uL (1.5-3.5); LYMPHOCYTES % (AUTO) 18.9 %; MEAN CORPUSCULAR HEMOGLOBIN 29.8 pg (27.0-31.0); MEAN CORPUSCULAR HGB CONC 32.7 g/dL (32.0-36.0); MEAN CORPUSCULAR VOLUME 91.3 fL (80.0-94.0); MONOCYTES # (AUTO) 1.6 10^3/uL (0.0-1.0); MONOCYTES % (AUTO) 11.6 %; NEUTROPHILS # (AUTO) 9.1 10^3/uL (1.5-6.6); NEUTROPHILS % (AUTO) 67.3 %; PLT - PLATELET COUNT 370 10^3/uL (130-450); RED BLOOD COUNT 4.59 10^6/uL (4.70-6.10); WHITE BLOOD COUNT 13.5 x10^3/uL (4.8-10.8)
[2021-02-23 06:51] LABS: CREATININE 0.9 mg/dL (0.6-1.2); MAGNESIUM 2.2 mg/dL (1.7-2.8); POTASSIUM 3.7 mmol/L (3.5-5.0)
[2021-02-23 06:54] LABS: SLIDE REVIEW? Indicated
[2021-02-23] MEDS: MORPHINE 2 MG/ML CARPUJECT IVP PRN ×3 (08:15→22:08)
[2021-02-23] MEDS ORDERED: LABETALOL 20 MG/4 ML SYRINGE IVP STA (09:10)
[2021-02-23] MEDS: SODIUM CHLORIDE FLUSH 0.9% 10 ML SYRINGE IVP SCH ×3 (09:17→23:55)
[2021-02-23] MEDS: ENOXAPARIN 40 MG/0.4 ML SYRINGE SUBQ SCH (09:17)
[2021-02-23] MEDS ORDERED: PROPOFOL 200 MG/20 ML VIAL IVP ONE (10:41)
[2021-02-23] MEDS ORDERED: fentaNYL 100 MCG/2 ML VIAL ONE ×2 (10:41→12:28)
[2021-02-23] MEDS ORDERED: MIDAZOLAM 2 MG/2 ML VIAL ONE (10:41)
[2021-02-23] MEDS ORDERED: VECURONIUM 10 MG VIAL ONE ×2 (10:42→14:05)
[2021-02-23] MEDS ORDERED: WATER FOR INJECTION,STERILE 10 ML MC ONE ×2 (10:42→14:05)
[2021-02-23] MEDS ORDERED: KETAMINE 500 MG/10 ML VIAL ONE (10:45)
[2021-02-23] MEDS ORDERED: LIDOCAINE-MPF 0.5% 50 ML VIAL ONE (10:46)
--- NOTE | 2021-02-23 10:48 | ANESTHESIA ---
Pre-Anesthesia VS, & Labs - Diagnosis Colon mass - Procedure laparoscopic colon resection Vital Signs: Temp Pulse Resp BP Pulse Ox 36.9 C 80 20 158/105 H 95 02/23/21 08:26 02/23/21 09:30 02/23/21 08:26 02/23/21 09:30 02/23/21 09:20 Height: 5 ft 9 in Weight (kg): 82.962 kg Body Mass Index: 27.0 BMI Classification: Overweight - NPO >8 hours - Lab Results Current Lab Results: Laboratory Tests 02/23/21 06:14: Sodium 136, Potassium 3.7, Chloride 93 L, Carbon Dioxide 24, Anion Gap 19.0 H, BUN 10, Creatinine 0.9, Estimated GFR (MDRD) 89, Glucose 96, Calcium 9.0, Magnesium 2.2 02/23/21 06:14: WBC 13.5 H, RBC 4.59 L, Hgb 13.7 L, Hct 41.9 L, MCV 91.3, MCH 29.8, MCHC 32.7, RDW 13.0, Plt Count 370, MPV 9.0, Neut # (Auto) 9.1 H, Lymph # (Auto) 2.6, [place] # (Auto) 1.6 H, Eos # (Auto) 0.2, Baso # (Auto) 0.1, Absolute Nucleated RBC 0.00, Nucleated RBC % 0.0, Manual Slide Review Indicated 02/22/21 23:47: POC Whole Bld Glucose 80 02/22/21 17:46: POC Whole Bld Glucose 74 02/22/21 11:14: POC Whole Bld Glucose 87 02/22/21 05:54: Carcinoembryonic Ag 15.6 02/22/21 05:54: Sodium 134 L, Potassium 3.9, Chloride 96 L, Carbon Dioxide 28, Anion Gap 10.0, BUN 11, Creatinine 0.9, Estimated GFR (MDRD) 89, Glucose 83, Calcium 8.4 L, Magnesium 2.0 02/22/21 05:54: WBC 10.0, RBC 4.28 L, Hgb 13.2 L, Hct 39.1 L, MCV 91.4, MCH 30.8, MCHC 33.8, RDW 12.9, Plt Count 319, MPV 8.8, Neut # (Auto) 5.8, Lymph # (Auto) 2.8, [place] # (Auto) 1.2 H, Eos # (Auto) 0.2, Baso # (Auto) 0.0, Absolute Nucleated RBC 0.00, Nucleated RBC % 0.0 02/22/21 05:52: POC Whole Bld Glucose 78 02/21/21 05:16: Sodium 133 L, Potassium 4.3, Chloride 98 L, Carbon Dioxide 27, Anion Gap 8.0, BUN 13, Creatinine 0.8, Estimated GFR (MDRD) 102, Glucose 97, Calcium 8.8, Magnesium 2.1 02/21/21 05:16: WBC 10.1, RBC 4.65 L, Hgb 14.3, Hct 42.6, MCV 91.6, MCH 30.8, M CHC 33.6, RDW 13.2, Plt Count 369, MPV 9.0, Neut # (Auto) 5.6, Lymph # (Auto) 3.3, [place] # (Auto) 0.9, Eos # (Auto) 0.3, Baso # (Auto) 0.0, Absolute Nucleated RBC 0.00, Nucleated RBC % 0.0 02/20/21 12:54: Sodium 137, Potassium 4.5, Chloride 100 L, Carbon Dioxide 25, Anion Gap 12.0, BUN 17, Creatinine 1.0, Estimated GFR (MDRD) 79 L, Glucose 113 H , Calcium 10.0, Total Bilirubin 0.9, AST 21, ALT 20, Alkaline Phosphatase 194 H, Total Protein 8.8 H, Albumin 4.6, Globulin 4.2, Albumin/Globulin Ratio 1.1, Lipase 22 02/20/21 12:54: WBC 14.5 H, RBC 5.38, Hgb 16.5, Hct 48.9, MCV 90.9, MCH 30.7, MCHC 33.7, RDW 13.2, Plt Count 421, MPV 8.7, Neut # (Auto) 9.6 H, Lymph # (Auto) 3.4, [place] # (Auto) 1.3 H, Eos # (Auto) 0.1, Baso # (Auto) 0.0, Absolute Nucleated RBC 0.00, Nucleated RBC % 0.0 Fish Bones: 02/23/21 06:14 02/23/21 06:14 Home Medications and Allergies Home Medications: Ambulatory Orders Atorvastatin [Lipitor] 40 mg PO DAILY 02/20/21 Lisinopril [Zestril] 1 mg PO DAILY 02/20/21 Methylphenidate HCl [Methylphenidate ER] 20 mg PO DAILY 02/20/21 Active Medications Acetaminophen (Acetaminophen 325 Mg Tablet) 650 mg PO Q4HR PRN PRN Reason: Pain 1 to 4 Last Admin: 02/21/21 00:02 Dose: 650 mg Documented by: Enoxaparin Sodium (Enoxaparin 40 Mg/0.4 Ml Syringe) 40 mg SUBQ DAILY [facility] Last Admin: 02/23/21 09:17 Dose: 40 mg Documented by: Lactated Ringer's (Lr) 1,000 mls @ 100 mls/hr IV .Q10H [facility] Last Admin: 02/23/21 01:21 Dose: 100 mls/hr Documented by: Morphine Sulfate (Morphine 2 Mg/Ml Carpuject) 2 mg IVP Q2HR PRN PRN Reason: Pain 8 to 10 Last Admin: 02/23/21 08:15 Dose: 2 mg Documented by: Ondansetron HCl (Ondansetron 4 Mg/2 Ml Vial) 4 mg IVP Q6HR PRN PRN Reason: Nausea / Vomiting Last Admin: 02/21/21 14:01 Dose: 4 mg Documented by: Phenol/Menthol (Phenol Throat [place] 177 Ml) 2 sprays MM Q2HR PRN PRN Reason: Throat Pain Last Admin: 02/21/21 20:58 Dose: 2 sprays Documented by: Sodium Chloride (Sodium Chloride Flush 0.9% 10 Ml Syringe) 10 ml IVP PRN PRN PRN Reason: NEEDED PER PROVIDER ORDERS Last Admin: 02/20/21 19:28 Dose: 10 ml Documented by: Sodium Chloride (Sodium Chloride Flush 0.9% 10 Ml Syringe) 10 ml IVP 0100,0900,1700 [facility] Last Admin: 02/23/21 09:17 Dose: 10 ml Documented by: Atorvastatin [Lipitor] 40 mg PO DAILY 02/20/21 Lisinopril [Zestril] 1 mg PO DAILY 02/20/21 Methylphenidate HCl [Methylphenidate ER] 20 mg PO DAILY 02/20/21 Allergies/Adverse Reactions: Allergies Allergy/AdvReac Type Severity Reaction Status Date / Time No Known Drug Allergies Allergy Verified 02/20/21 12:42 Anes History & Medical History - Anesthetic History Anesthesia Complications: reports: No previous complications - Medical History Cardiovascular: reports: Hypertension, High cholesterol Pulmonary: reports: None Gastrointestinal: reports: Other Urinary: reports: None Neuro: reports: None Musculoskeletal: reports: None Endocrine/Autoimmune: reports: None Blood Disorders: reports: None Skin: reports: None Smoking Status: Current every day smoker Psychosocial: reports: No issues indicated History of Cancer?: No - Surgical History Orthopedic: reports: Other (wrist) Exam General: Alert, Oriented x3, Cooperative, No acute distress Dental: WNL Mouth Openin Fingerbreadth Neck Mobility: Normal Mallampati classification: II Thyromental Distance: 4-6 cm Respiratory: Lungs clear, Normal breath sounds, No respiratory distress, No accessory muscle use Cardiovascular: Regular rate, Normal S1, Normal S2, No murmurs Mental/Cognitive Status: Alert/Oriented X3, Normal for patient Plan Anesthesia Type: General, Transverse Abdominis Plane (TAP) Block (Bilateral) Regional Block: Per Surgeon's request for Post Op pain control Consent for Procedure(s) Verified and Reviewed: Yes Code Status: Attempt Resuscitation ASA classification: 2-Mild systemic disease Is this case an emergency?: No
[2021-02-23] MEDS ORDERED: SODIUM CHLORIDE 0.9% 10 ML VIAL IVP ONE (10:55)
--- NOTE | 2021-02-23 11:17 | PROVIDER PROGRESS NOTE ---
Progress Note Subjective 51-year-old male with obstructing colonic mass distal descending colon with large hepatic lesion. CT of the chest without any significant pulmonary metastases. Discussed multiple options and advised to proceed with diagnostic laparoscopy, laparoscopic loop colostomy, laparoscopic assisted liver biopsy. Objective Afebrile hemodynamically acceptable General Appearance: positive: No acute distress Eyes Bilateral: positive: Normal inspection ENT: positive: ENT inspection nml Neck: positive: Nml inspection Respiratory: positive: Chest non-tender, No respiratory distress, Breath sounds nml. negative: Wheezes, Rales, Rhonchi Cardiovascular: positive: Regular rate & rhythm Abdomen: positive: No distention, Other. negative: Guarding, Rebound Extremities: positive: Non-tender, Full ROM, Nml appearance Neurologic/Psychiatric: positive: Oriented x3, CN's nml (2-12) Abdomen softly distended. 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 Large hepatic mass. We will proceed with diagnostic laparoscopy, laparoscopic assisted loop colostomy, laparoscopic assisted liver biopsy amongst others. Risk and benefit discussed questions answered. No evidence of pulmonary metastases on staging work-up. Elevated CEA. Understands that at this point in time the most definitive and effective approach in the setting of metastatic disease is palliative chemotherapy however if his liver metastasis is an isolated extracolonic site of disease he could be candidate for medicine cystectomy following appropriate response to chemotherapy and possible hepatic directed ablative therapy including atrium embolization. Please note that voice recognition software was used to transcribe this note and inadvertent errors might persist in spite of review and editing. I am obliged to you for your attention. I am thankful to you for allowing me to participate with you in this care of this patient.
[2021-02-23] MEDS ORDERED: LIDOCAINE 2%-EPI 1:100000 20 ML MDV SUBQ ONE (12:24)
[2021-02-23] MEDS ORDERED: BUPIVACAINE 0.5% PF 10 ML VIAL IM ONE (12:25)
[2021-02-23] MEDS ORDERED: BUPIVACAINE 0.5% PF 10 ML VIAL ONE (12:28)
[2021-02-23] MEDS ORDERED: LIDOCAINE MPF 2%-EPI 1:200000 20 ML VIAL ONE (12:28)
[2021-02-23] MEDS ORDERED: LABETALOL 5 MG/1 ML 20 ML MDV ONE (12:29)
[2021-02-23] MEDS ORDERED: ONDANSETRON 4 MG/2 ML VIAL ONE (14:17)
[2021-02-23] MEDS ORDERED: DEXAMETHASONE 4 MG/ML VIAL ONE (14:17)
[2021-02-23] MEDS ORDERED: ROPIVACAINE 0.5% PF 20 ML AMPULE ONE ×2 (14:26→14:28)
[2021-02-23] MEDS ORDERED: SEVOFLURANE 250 ML LIQUID INH ONE (14:43)
[2021-02-23] MEDS ORDERED: SUGAMMADEX 200 MG/2 ML VIAL IVP ONE (15:10)
[2021-02-23] MEDS ORDERED: LACTATED RINGERS 1,000 ML IV ONE (15:18)
[2021-02-23] MEDS ORDERED: ONDANSETRON 4 MG/2 ML VIAL IVP PRN ×2 (15:31→15:34)
[2021-02-23] MEDS ORDERED: ATROPINE ABBOJECT 1 MG/10 ML SYRINGE IVP PRN (15:31)
[2021-02-23] MEDS ORDERED: HYDROmorphone 0.5 MG/0.5 ML SYRINGE IVP PRN (15:31)
[2021-02-23] MEDS ORDERED: MORPHINE 2 MG/ML CARPUJECT IVP PRN (15:31)
[2021-02-23] MEDS ORDERED: NALOXONE 0.4 MG/ML VIAL IVP PRN (15:31)
[2021-02-23] MEDS ORDERED: fentaNYL 100 MCG/2 ML VIAL IVP PRN (15:31)
[2021-02-23] MEDS: LABETALOL 20 MG/4 ML SYRINGE IVP PRN ×2 (15:40→15:50)
[2021-02-23] MEDS ORDERED: LABETALOL 20 MG/4 ML SYRINGE IVP ONE (15:41)
--- NOTE | 2021-02-23 15:54 | OPERATIVE REPORT ---
Operative Report - General Admit Date: 02/22/21 Procedure Date: 02/23/21 Planned Procedure: 1. Diagnostic laparoscopy 2. Laparoscopic-assisted loop colostomy 3. Laparoscopic assisted liver biopsy 4. Laparoscopic adhesiolysis 5. Laparoscopic assisted abdominal washings with aspirate 6. Open umbilical hernia repair 7. Laparoscopic splenic flexure mobilization Pre-Op Diagnosis: Obstructing descending colonic mass, likely cancer; large left hepatic mass Procedure Performed: 1. Diagnostic laparoscopy 2. Laparoscopic-assisted loop colostomy 3. Laparoscopic assisted liver biopsy 4. Laparoscopic adhesiolysis 5. Laparoscopic assisted abdominal washings with aspirate 6. Open umbilical hernia repair 7. Laparoscopic splenic flexure mobilization Post Op Diagnosis: Same; no peritoneal studding/omental caking - Procedure Note Primary Surgeon: Justo Secondary Surgeon: KITTY Anesthesia Provider: Torie Anesthesia Technique: Local, Regional block Pathology: Left hepatic lobe biopsy Estimated Blood Loss (mL): 70 Drain/Tube Type: Reza drain, Other (Stoma bolster) Indications: See EMR Findings: 1. Umbilical hernia 2. Large left hepatic liver mass extending to the falciform nearly encompassing the entirety of the left lobe of the liver 3. Obstructing mass noted with distal ink spot tattoo within the descending co rob 4. Exceedingly high splenic flexure densely adherent requiring careful adhesiolysis 5. No other areas of metastatic disease; neither peritoneal studding nor any omental caking. 6. Viable stoma Complications: None - Other Other Information/Narrative: Procedure report: The patient was taken to the operating room, placed supine on the operating table. Informed consent was confirmed. The patient was placed for bilateral lower extremity serial compression devices and thereafter induced for general endotracheal anesthesia. The patient at this time was supine offloaded and padded. The was placed for Abraham catheter. Arms were tucked bilaterally. Abdomen was prepped and draped in the usual sterile fashion. A time-out was called and agreed to by all in the room. We planned to proceed as follows: 1. Diagnostic laparoscopy 2. Laparoscopic-assisted loop colostomy 3. Laparoscopic assisted liver biopsy 4. Laparoscopic adhesiolysis 5. Laparoscopic assisted abdominal washings with aspirate 6. Open umbilical hernia repair 7. Laparoscopic splenic flexure mobilization Diagnostic laparoscopy was performed through an open Pushpa technique with a 10 mm trocar through the umbilicus which was achieved by incising sharply, dividing down through the fascia using Bovie electrocautery, elevating fascia, dividing the peritoneum, and entering sharply without any noted injury. A pilot point umbilical hernia was noted for which the defect was enlarged in order to accommodate the Cortes trocar. This was plan to be close at the conclusion of the case. Pushpa trocar was inserted. Abdomen was insufflated without any complication. A laparoscope was thereafter placed, and the abdomen was examined. There were minimal adhesions. There were no areas of gross peritoneal studding or omental metastatic disease. We proceeded with peritoneal lavage and aspirate for cytology. This was performed laparoscopically after additional trochars were placed as follows: 1. Suprapubic 5 mm trocar 2. Right lower quadrant 5 mm trocar 3. Right upper quadrant 5 mm trocar These were performed under direct vision with laparoscopic guidance. Once these additional ports were placed, the patient was placed in steep Trendelenburg with left side up, and the small bowel was reflected into the right upper quadrant. Once additional trochars were placed we performed laparoscopic adhesiolysis. Case began with adhesiolysis as follows: Trochars were sequentially placed towards affording appropriate abdominal access for laparoscopic and ultimately laparoscopic adhesiolysis and enterolysis. This was performed in such a way as to maximize exposure and minimize abdominal trauma. We clearly visualized, after appropriate and lengthy laparoscopic adhesiolysis, each trocar placement. Thereafter once appropriate and safe exposure was achieved without any inadvertent injuries or other complicating factors, we proceeded in such a way as to take down the patient's intra-abdominal adhesions using sharp laparoscopic dissection, diligent electrocautery, and appropriate countertraction. Please note for multiple reasons as listed above under brief procedural findings, this patient was best suited to minimal access adhesiolysis towards avoiding open intervention, reducing the associated risks thereof, maximizing recovery, minimizing postoperative morbidity and associated stigmata, and enhancing the patient's convalescence towards assuring safe and expeditious ushering of pa tient into the next step of therapeutic intervention which was crucial in overall plan of care. This proceeded without any untoward complications, and without any inadvertent injuries or other adverse effect events. Please note a great amount of time was spent deciding how to proceed appropriately in this patient's unique case. In the setting of radiographic concerns for metastatic disease, obstructing cancer, performing any oncologic resection could be futile and potentially delay more valuable palliative chemotherapy. Thus laparoscopic loop colostomy was the optimal choice. The patient could be considered for transfer for endoluminal stenting however given the size of the tumor and the need for hepatic biopsies this appeared the best of all possible options given the opportunity to endoscopically stage this patient as well. Sigmoid colon at this time was elevated, and the white line of [place] was divided laparoscopically using laparoscopic cristian with cautery. This was performed all of the way through to the splenic flexure. There was no attempt at dividing any mesentery and the plan was to perform a diverting loop descending colostomy. Before completing the colostomy we proceeded with laparoscopic assisted hepatic biopsy. There was in a area over the left lobe of the liver that was concerning for abnormality. This was planned for core needle biopsy. A final trocar was placed in Left upper quadrant at the site of the planned loop colostomy. Under direct laparoscopic vision several passes was made with the laparoscopic core needle biopsy device through the trocar to avoid any seeding of the skin and subcutaneous fat. Hemostasis was achieved with Bovie electrocautery. Surgicel was placed. At this time we continued to perform mobilization in what was an exceedingly high splenic flexure that approximated the left hemidiaphragm. There was significant redundancy of the transverse colon adhered to the descending colon which required extensive adhesiolysis. This was performed and achieved with a laparoscopic LigaSure [place] tip device. We also after multiple attempts at evaluating whether we had appropriate length we ultimately placed a applied [id number] GelPort through the ultimate plan colostomy site to assist with appropriate mobilization. This site was created through the left upper quadrant trocar used for the liver biopsy; an ultimate trephine of skin was excised and discarded. This was, thereafter, divided for its subcutaneous fat using Bovie electrocautery. Once the fascia was encountered, this was divided with electrocautery as well. The rectus muscle was using Danielle clamps, and the underlying peritoneum was elevated using hemostats. This was ultimately divided, and thereafter, pneumoperitoneum was discontinued. And applied GelPort access device was utilized thereafter. Mobilizing the entirety of the descending colon proximal to the descending obstructing colon mass required careful and deliberate laparoscopic adhesiolysis and mobilization. Ultimately adequate length was achieved. The patient had a thick abdominal wall which necessitated placement of a stoma bolster. An end colostomy was not a option given the necessity to distally decompress length of bowel proximal to the obstructing lesion. Please note that the colon was already oriented with a laparoscopic clip mammography technologist to assure efferent and afferent loops were identified for appropriate brooking. Because the extent of the mobilization the extent of the lavage after both mobilization and hepatic biopsy is a Reza drain was left in place. This was sutured in place with 2-0 nylon. The red rubber catheter was used as a bolster. The proximal end was able to be adequately prolapsed without excess tension or torsion, and it was felt appropriate to proceed with colostomy maturation. With this completed, the trocar sites thereafter were appropriately closed with the umbilical trocar reapproximated with multiple [id number] of 0 Vicryl, in the manner of an umbilical hernia repair. Umbilical plasty was performed also. Skin was reapproximated after irrigation with skin staplers. The 5 mm trocar sites were similarly reapproximated with a skin stapler as well. The Aldo wound ring was divided and thereafter removed. With Babcocks in place along the colon, it was partially divided and thereafter sutured to the deep dermis through the associated tenia as part of colostomy maturation. This was performed circumferentially as we slowly continued to divide the colon and ultimately circumferentially mature this colostomy to its mucocutaneous junction, again, assuring full-thickness bites and involving the deep dermal layer at the cutaneous aspect. This was performed in a Lakshmi fashion. With the mucocutaneous junction created and efferent limb of the stoma patent, we proceeded to place a stoma appliance, with the stoma pink and viable. Patient tolerated procedure well which is no complication. All counts for sponges, needles and instruments were correct conclusion of the case. I was present for the entirety of this operative intervention. No complications. Patient was taken to postanesthesia care unit in stable condition. Please note that voice recognition software was used to transcribe this note and inadvertent errors might persist in spite of review and editing. I am obliged to you for your attention. I am thankful to you for allowing me to participate with you in this care of this patient.
[2021-02-23] MEDS ORDERED: hydrALAZINE INJ 20 MG/ML VIAL ONE (15:55)
[2021-02-23] MEDS: hydrALAZINE INJ 20 MG/ML VIAL IVP PRN ×2 (15:57→16:02)
[2021-02-23] MEDS ORDERED: LACTATED RINGERS 1,000 ML IV SCH (16:00)
--- NOTE | 2021-02-23 16:14 | ANESTHESIA POST OP EVALUATION ---
Anesthesia Post Eval - Post Anesthesia Eval Vitals: Last Vital Signs Temp 36.8 C 02/23/21 16:10 Pulse 84 02/23/21 16:10 Resp 16 02/23/21 16:10 BP 167/111 H 02/23/21 16:10 Pulse Ox 95 02/23/21 16:10 CV Function Including HR & BP: Stable Pain Control: Satisfactory Nausea & Vomiting: Negative Mental Status: Baseline Respiratory Status: Airway Patent Hydration Status: Satisfactory Anesthesia Complications: None
--- NOTE | 2021-02-23 16:18 | XRAY Report ---
PROCEDURE: Post Port Placement 1V CXR INDICATIONS: evaluate post Rt IJ TLC TECHNIQUE: One view of the chest was acquired. COMPARISON: CT of chest dated 02/22/2021 FINDINGS: Surgical changes and devices: Right internal jugular central venous catheter tip is in the region of SVC/right atrium.. Lungs and pleura: No pleural effusions or pneumothorax. Mild pulmonary vascular congestion is seen. No focal infiltrate. Mediastinum: Heart size is enlarged. Mildly tortuous thoracic aorta is seen. Bones and chest wall: No suspicious bony lesions. Overlying soft tissues appear unremarkable. IMPRESSION: Right internal jugular central venous catheter tip is in the region of SVC. Mild pulmonary vascular c ongestion. No pneumothorax. Reviewed by: Abner Peña MD on 02/23/2021 4:17 PM PDT Approved by: Abner Peña MD on 02/23/2021 4:17 PM PDT Station ID: [id number]
[2021-02-23] MEDS: D5NS W/20 MEQ KCL 1,000 ML IV SCH (16:46)
[2021-02-23] MEDS: metroNIDAZOLE 500 MG/100 ML 500 MG/100 ML BAG IV SCH ×2 (17:20→20:19)
[2021-02-23] MEDS: methocarbamoL 500 MG TABLET PO SCH ×2 (18:16→23:54)
[2021-02-23] MEDS: KETOROLAC 30 MG/ML VIAL IVP SCH ×2 (18:20→23:54)
[2021-02-23] MEDS: METOCLOPRAMIDE 10 MG/2 ML VIAL IVP SCH ×2 (18:27→23:54)
[2021-02-23] MEDS: FAT EMULSION 20% 250 ML IV SCH (19:13)
[2021-02-23] MEDS: TPN (CLINIMIX E 5/15) 2,000 ML with MULTIVITAMIN 10 ML, TRACE ELEMENTS 1 ML IV SCH ×3 (19:14)
[2021-02-23] MEDS: DOCUSATE SODIUM 100 MG CAPSULE PO SCH (22:08)
[2021-02-23] MEDS: polyethylene glycoL 3350 17 GM PACKET PO SCH (22:08)
[2021-02-23] MEDS: CIPROFLOXACIN 400 MG/200 ML 400 MG/200 ML BAG IV SCH (23:08)
[2021-02-24] MEDS: D5NS W/20 MEQ KCL 1,000 ML IV SCH ×2 (03:40→11:06)
[2021-02-24] MEDS: metroNIDAZOLE 500 MG/100 ML 500 MG/100 ML BAG IV SCH ×3 (04:22→20:45)
[2021-02-24] MEDS: methocarbamoL 500 MG TABLET PO SCH ×3 (06:03→18:13)
[2021-02-24] MEDS: KETOROLAC 30 MG/ML VIAL IVP SCH ×3 (06:04→18:13)
[2021-02-24] MEDS: METOCLOPRAMIDE 10 MG/2 ML VIAL IVP SCH ×3 (06:04→18:13)
[2021-02-24 06:29] LABS: BASOPHILS % (AUTO) 0.1 %; HCT - HEMATOCRIT 38.1 % (42.0-52.0); HGB - HEMOGLOBIN 12.3 g/dL (14.0-18.0); LYMPHOCYTES # (AUTO) 1.6 10^3/uL (1.5-3.5); LYMPHOCYTES % (AUTO) 14.1 %; MEAN CORPUSCULAR HGB CONC 32.3 g/dL (32.0-36.0); MEAN CORPUSCULAR VOLUME 92.9 fL (80.0-94.0); MEAN PLATELET VOLUME 8.9 fL (7.4-11.4); MONOCYTES # (AUTO) 1.1 10^3/uL (0.0-1.0); MONOCYTES % (AUTO) 9.9 %; NEUTROPHILS # (AUTO) 8.7 10^3/uL (1.5-6.6); NEUTROPHILS % (AUTO) 75.5 %; PLT - PLATELET COUNT 330 10^3/uL (130-450); RED CELL DISTRIBUTION WIDTH 13.1 % (12.0-15.0); WHITE BLOOD COUNT 11.5 x10^3/uL (4.8-10.8)
[2021-02-24 06:40] LABS: ALBUMIN 3.1 g/dL (3.2-5.5); ALBUMIN/GLOBULIN RATIO 0.9 (1.0-2.2); BILIRUBIN,TOTAL 0.6 mg/dL (0.2-1.0); CALCIUM 8.2 mg/dL (8.5-10.3); CREATININE 0.8 mg/dL (0.6-1.2); MAGNESIUM 2.3 mg/dL (1.7-2.8); PHOSPHORUS 1.9 mg/dL (2.5-4.6); POTASSIUM 3.9 mmol/L (3.5-5.0); TOTAL PROTEIN 6.5 g/dL (6.7-8.2)
[2021-02-24] MEDS: polyethylene glycoL 3350 17 GM PACKET PO SCH ×2 (08:31→20:52)
[2021-02-24] MEDS: SODIUM CHLORIDE FLUSH 0.9% 10 ML SYRINGE IVP SCH ×3 (08:31→18:18)
[2021-02-24] MEDS: DOCUSATE SODIUM 100 MG CAPSULE PO SCH ×2 (08:31→20:52)
[2021-02-24] MEDS: MORPHINE 2 MG/ML CARPUJECT IVP PRN ×2 (09:02→18:07)
[2021-02-24] MEDS: CIPROFLOXACIN 400 MG/200 ML 400 MG/200 ML BAG IV SCH ×2 (11:03→22:56)
[2021-02-24] MEDS: INSULIN ASPART 300 UNIT/3 ML PEN SUBQ SCH ×3 (11:32→20:53)
[2021-02-24] MEDS ORDERED: SODIUM PHOSPHATE 20 MMOL in SODIUM CHLORIDE 0.9% 250 ML IV ONE (12:00)
--- NOTE | 2021-02-24 16:39 | PROVIDER PROGRESS NOTE ---
Assessment/Plan - Problem List (1) Mass of colon Assessment/Plan: He is POD #1 after colostomy Has pain, is hearing gas, tolerating liquid diet (2) S/P colostomy Assessment/Plan: Will add IS post-op, he is seen to be splinting (3) Liver mass Assessment/Plan: Bx was done in OR yest (4) Hypertension Assessment/Plan: BP stable, po meds to resume (5) Hyperglycemia Assessment/Plan: He got one dose of Decadron in OR yesterday and tpn started yesterday. Will add POC glu checks nand ss Insulin coverage. Will check A1c (6) Hypophosphatemia Assessment/Plan: Will give sodium phosphate riders to correct (7) Bowel obstruction Qualifiers: Intestinal obstruction type: other intestinal obstruction Intestinal obstruction extent: partial Qualified Code(s): K56.690 - Other partial intestinal obstruction Assessment/Plan: Resolved with ng tube removed - Current Meds Current Meds: Current Medications Generic Name Dose Route Start Last Admin Trade Name Freq PRN Reason Stop Dose Admin Acetaminophen 650 mg 02/20/21 16:22 02/21/21 00:02 Acetaminophen 325 Mg Tablet PO 650 mg Q4HR PRN Administration Pain 1 to 4 Docusate Sodium 100 mg 02/23/21 21:00 02/24/21 08:31 Docusate Sodium 100 Mg Capsule PO 100 mg BID HARMEET Administration Ciprofloxacin 400 mg in 200 mls @ 200 mls/hr 02/23/21 12:00 02/24/21 12:05 Cipro 400 Mg/200 Ml IV Infused Q12H HARMEET Infusion Metronidazole 500 mg in 100 mls @ 100 mls/hr 02/23/21 12:00 02/24/21 13:10 Flagyl 500 Mg/100 Ml IV Infused Q8H HARMEET Infusion Multivitamins 10 ml/ TRACE 2,011 mls @ 83 mls/hr 02/23/21 19:00 02/24/21 01:35 ELEMENTS 1 ml/ Amino Ac/ IV 83 mls/hr Electrol/Dextrose/Calcium TPN/PPN HARMEET Infusion Fat Emulsion Intravenous 250 mls @ 21 mls/hr 02/23/21 19:00 02/24/21 07:15 Intralipid 20% IV Infused TPN/PPN HARMEET Infusion Sodium Phosphate 20 mmol/ 256.6667 mls @ 41 mls/hr 02/24/21 12:00 02/24/21 12:28 Sodium Chloride IV 02/24/21 18:15 41 mls/hr ONCE ONE Administration Insulin Aspart 1 - 5 unit 02/24/21 12:00 02/24/21 11:32 Insulin Aspart 300 Unit/3 Ml Pen SUBQ 1 unit 0800,1200,1700,2100 HARMEET Administration Protocol Ketorolac Tromethamine 15 mg 02/23/21 18:00 02/24/21 11:33 Ketorolac 30 Mg/Ml Vial IVP 02/28/21 17:59 15 mg Q6HR HARMEET Administration Methocarbamol 500 mg 02/23/21 18:00 02/24/21 11:34 Methocarbamol 500 Mg Tablet PO 500 mg Q6HR HARMEET Administration Metoclopramide HCl 10 mg 02/23/21 18:00 02/24/21 11:33 Metoclopramide 10 Mg/2 Ml Vial IVP 10 mg Q6HR HARMEET Administration Morphine Sulfate 2 mg 02/20/21 16:22 02/24/21 09:02 Morphine 2 Mg/Ml Carpuject IVP 2 mg Q2HR PRN Administration Pain 8 to 10 Ondansetron HCl 4 mg 02/20/21 16:22 02/21/21 14:01 Ondansetron 4 Mg/2 Ml Vial IVP 4 mg Q6HR PRN Administration Nausea / Vomiting Phenol/Menthol 2 sprays 02/21/21 16:51 02/21/21 20:58 Phenol Throat Pep 177 Ml MM 2 sprays Q2HR PRN Administration Throat Pain Polyethylene Glycol 17 gm 02/23/21 21:00 02/24/21 08:31 Polyethylene Glycol 3350 17 Gm Packet PO 17 gm BID HARMEET Administration Sodium Chloride 10 ml 02/20/21 16:22 02/20/21 19:28 Sodium Chloride Flush 0.9% 10 Ml Syringe IVP 10 ml PRN PRN Administration NEEDED PER PROVIDER ORDERS Sodium Chloride 10 ml 02/20/21 17:00 02/24/21 09:02 Sodium Chloride Flush 0.9% 10 Ml Syringe IVP 10 ml 0100,0900,1700 HARMEET Administration - Lab Result Fish Bone Diagrams: 02/24/21 06:10 02/24/21 06:10 - Additional Planning My Orders: My Active Orders 02/23/21 18:27 Miscellaenous Nursing Order [RC] ONCE 02/24/21 11:14 Blood Glucose Checks - Eating [RC] 0800,1200,1700,2100 Initiate Hypoglycemia Protocol [RC] .protocol Miscellaenous Nursing Order [] QSHIFT 02/24/21 12:00 Insulin Aspart [NovoLOG] 1 - 5 unit SUBQ 0800,1200,1700,2100 Sodium Phosphate 20 mmol Sodium Chloride 0.9% [Normal Saline 0.9%] 250 ml IV ONCE 02/24/21 18:00 PHOSPHORUS [CHEM] Timed 02/25/21 05:00 CALCIUM [CHEM] DAILYLAB HEMOGLOBIN A1c% [CHEM] DAILYLAB 02/26/21 05:00 CALCIUM [CHEM] DAILYLAB 02/27/21 05:00 CALCIUM [CHEM] DAILYLAB Subjective - Subjective Patient Reports: Pain, Other (Urge to empty bladder as Abraham was just removed) Objective Vital Signs: Vital Signs - 24 hr 02/23/21 02/23/21 02/23/21 16:45 17:00 17:15 Temperature 36.8 C 36.7 C 36.7 C Heart Rate [ 88 89 89 Brachial] Respiratory 20 20 16 Rate Blood Pressure 161/96 H 159/94 H 159/96 H [Right Brachial artery] O2 Saturation 93 93 93 02/23/21 02/23/21 02/23/21 17:45 18:15 19:15 Temperature 37.2 C 36.6 C 36.7 C Heart Rate [ 87 91 93 Brachial] Respiratory 20 20 16 Rate Blood Pressure 164/96 H 160/101 H 164/101 H [Right Brachial artery] O2 Saturation 93 92 93 02/23/21 02/24/21 02/24/21 20:15 00:16 06:23 Temperature 37.0 C 36.8 C 36.7 C Heart Rate [ 89 81 74 Brachial] Respiratory 20 18 20 Rate Blood Pressure 168/101 H 156/95 H 134/82 H [Right Brachial artery] O2 Saturation 93 94 95 02/24/21 02/24/21 02/24/21 07:25 11:40 16:09 Temperature 36.5 C 36.7 C 36.7 C Heart Rate [ 72 70 74 Brachial] Respiratory 20 20 20 Rate Blood Pressure 124/79 124/84 H 138/86 H [Right Brachial artery] O2 Saturation 92 96 93 Oxygen O2 Source Nasal cannula I&O (Last 24 Hrs): Intake and Output Totals x24h 02/22/21 02/23/21 02/24/21 23:59 23:59 23:59 Intake Total 2585.000 3370.367 1709.633 Output Total 4125 2640 1700 Balance -1540.000 730.367 9.633 General: Alert, Oriented x3 HEENT: EOMI, Mucous membr. moist/pink Neck: No JVD Neuro: Alert, Non Focal Cardiovascular: Regular rate Respiratory: No respiratory distress, Other (Diminished breath sounds R base, clear on L base) Abdomen: Soft, Other (No bowel sounds, non-tender) Extremities: No edema Skin: No rashes - Results Results: Laboratory Results WBC 11.5 x10^3/uL (4.8-10.8) H 02/24/21 06:10 RBC 4.10 10^6/uL (4.70-6.10) L 02/24/21 06:10 Hgb 12.3 g/dL (14.0-18.0) L 02/24/21 06:10 Hct 38.1 % (42.0-52.0) L 02/24/21 06:10 MCV 92.9 fL (80.0-94.0) 02/24/21 06:10 MCH 30.0 pg (27.0-31.0) 02/24/21 06:10 MCHC 32.3 g/dL (32.0-36.0) 02/24/21 06:10 RDW 13.1 % (12.0-15.0) 02/24/21 06:10 Plt Count 330 10^3/uL (130-450) 02/24/21 06:10 MPV 8.9 fL (7.4-11.4) 02/24/21 06:10 Neut # (Auto) 8.7 10^3/uL (1.5-6.6) H 02/24/21 06:10 Lymph # (Auto) 1.6 10^3/uL (1.5-3.5) 02/24/21 06:10 Teller # (Auto) 1.1 10^3/uL (0.0-1.0) H 02/24/21 06:10 Eos # (Auto) 0.0 10^3/uL (0.0-0.7) 02/24/21 06:10 Baso # (Auto) 0.0 10^3/uL (0.0-0.1) 02/24/21 06:10 Absolute Nucleated RBC 0.00 x10^3/uL 02/24/21 06:10 Nucleated RBC % 0.0 /100WBC 02/24/21 06:10 Manual Slide Review Indicated 02/23/21 06:14 Sodium 134 mmol/L (135-145) L 02/24/21 06:10 Potassium 3.9 mmol/L (3.5-5.0) 02/24/21 06:10 Chloride 96 mmol/L (101-111) L 02/24/21 06:10 Carbon Dioxide 29 mmol/L (21-32) 02/24/21 06:10 Anion Gap 9.0 (6-13) 02/24/21 06:10 BUN 11 mg/dL (6-20) 02/24/21 06:10 Creatinine 0.8 mg/dL (0.6-1.2) 02/24/21 06:10 Estimated GFR (MDRD) 102 (>89) 02/24/21 06:10 Glucose 288 mg/dL (70-100) H 02/24/21 06:10 POC Whole Bld Glucose 261 mg/dL (70 - 100) H 02/24/21 11:11 Calcium 8.2 mg/dL (8.5-10.3) L 02/24/21 06:10 Phosphorus 1.9 mg/dL (2.5-4.6) L 02/24/21 06:10 Magnesium 2.3 mg/dL (1.7-2.8) 02/24/21 06:10 Total Bilirubin 0.6 mg/dL (0.2-1.0) 02/24/21 06:10 AST 40 IU/L (10-42) 02/24/21 06:10 ALT 24 IU/L (10-60) 02/24/21 06:10 Alkaline Phosphatase 111 IU/L (42-121) 02/24/21 06:10 Total Protein 6.5 g/dL (6.7-8.2) L 02/24/21 06:10 Albumin 3.1 g/dL (3.2-5.5) L 02/24/21 06:10 Globulin 3.4 g/dL (2.1-4.2) 02/24/21 06:10 Albumin/Globulin Ratio 0.9 (1.0-2.2) L 02/24/21 06:10 Lipase 22 U/L (22-51) 02/20/21 12:54 Carcinoembryonic Ag 15.6 ng/mL 02/22/21 05:54 Urine Color DARK YELLOW 02/20/21 13:12 Urine Clarity CLEAR (CLEAR) 02/20/21 13:12 Urine pH 6.0 PH (5.0-7.5) 02/20/21 13:12 Ur Specific Coats >=1.030 (1.002-1.030) H 02/20/21 13:12 Urine Protein 100 mg/dL (NEGATIVE) H 02/20/21 13:12 Urine Glucose (UA) NEGATIVE mg/dL (NEGATIVE) 02/20/21 13:12 Urine Ketones 15 mg/dL (NEGATIVE) H 02/20/21 13:12 Urine Occult Blood NEGATIVE (NEGATIVE) 02/20/21 13:12 Urine Nitrite NEGATIVE (NEGATIVE) 02/20/21 13:12 Urine Bilirubin NEGATIVE (NEGATIVE) 02/20/21 13:12 Urine Urobilinogen 1 (NORMAL) E.U./dL (NORMAL) 02/20/21 13:12 Ur Leukocyte Esterase NEGATIVE (NEGATIVE) 02/20/21 13:12 Urine RBC 0-5 /HPF (0-5) 02/20/21 13:12 Urine WBC 0-3 /HPF (0-3) 02/20/21 13:12 Ur Squamous Epith Cells NONE SEEN (<= Few) 02/20/21 13:12 Urine Bacteria Few /HPF (None Seen) 02/20/21 13:12 Urine Mucus Moderate Strands 02/20/21 13:12 Ur Microscopic Review INDICATED 02/20/21 13:12 Urine Culture Comments NOT INDICATED 02/20/21 13:12 Nasal Adenovirus (PCR) NOT DETECTED 02/20/21 16:48 Nasal B. parapertussis DNA (PCR) NOT DETECTED 02/20/21 16:48 Nasal Coronavir 229E PCR NOT DETECTED 02/20/21 16:48 Nasal Coronavir HKU1 PCR NOT DETECTED 02/20/21 16:48 Nasal Coronavir NL63 PCR NOT DETECTED 02/20/21 16:48 Nasal Coronavir OC43 PCR NOT DETECTED 02/20/21 16:48 Nasal Enterovir/Rhinovir PCR NOT DETECTED 02/20/21 16:48 Nasal Influenza B PCR NOT DETECTED 02/20/21 16:48 Nasal Influenza A PCR NOT DETECTED 02/20/21 16:48 Nasal Parainfluen 1 PCR NOT DETECTED 02/20/21 16:48 Nasal Parainfluen 2 PCR NOT DETECTED 02/20/21 16:48 Nasal Parainfluen 3 PCR NOT DETECTED 02/20/21 16:48 Nasal Parainfluen 4 PCR NOT DETECTED 02/20/21 16:48 Nasal RSV (PCR) NOT DETECTED 02/20/21 16:48 Nasal B.pertussis DNA PCR NOT DETECTED 02/20/21 16:48 Nasal C.pneumoniae (PCR) NOT DETECTED 02/20/21 16:48 Onel Human Metapneumo PCR NOT DETECTED 02/20/21 16:48 Nasal M.pneumoniae (PCR) NOT DETECTED 02/20/21 16:48 Nasal SARS-CoV-2 (PCR) NOT DETECTED 02/20/21 16:48
[2021-02-24] MEDS: TPN (CLINIMIX E 5/15) 2,000 ML with MULTIVITAMIN 10 ML, TRACE ELEMENTS 1 ML IV SCH ×3 (19:04)
[2021-02-24] MEDS: FAT EMULSION 20% 250 ML IV SCH (19:04)
[2021-02-24] MEDS: ACETAMINOPHEN 325 MG TABLET PO PRN (20:52)
[2021-02-25] MEDS: methocarbamoL 500 MG TABLET PO SCH ×4 (00:05→18:02)
[2021-02-25] MEDS: SODIUM CHLORIDE FLUSH 0.9% 10 ML SYRINGE IVP SCH ×3 (00:05→18:03)
[2021-02-25] MEDS: KETOROLAC 30 MG/ML VIAL IVP SCH ×4 (00:05→17:53)
[2021-02-25] MEDS: METOCLOPRAMIDE 10 MG/2 ML VIAL IVP SCH ×4 (00:06→18:01)
[2021-02-25] MEDS: metroNIDAZOLE 500 MG/100 ML 500 MG/100 ML BAG IV SCH ×3 (04:03→21:14)
[2021-02-25 06:38] LABS: BASOPHILS % (AUTO) 0.3 %; EOSINOPHILS # (AUTO) 0.6 10^3/uL (0.0-0.7); EOSINOPHILS % (AUTO) 4.6 %; HCT - HEMATOCRIT 38.9 % (42.0-52.0); HGB - HEMOGLOBIN 12.8 g/dL (14.0-18.0); LYMPHOCYTES # (AUTO) 2.6 10^3/uL (1.5-3.5); LYMPHOCYTES % (AUTO) 19.4 %; MEAN CORPUSCULAR HEMOGLOBIN 30.8 pg (27.0-31.0); MEAN CORPUSCULAR HGB CONC 32.9 g/dL (32.0-36.0); MEAN CORPUSCULAR VOLUME 93.7 fL (80.0-94.0); MONOCYTES # (AUTO) 1.2 10^3/uL (0.0-1.0); MONOCYTES % (AUTO) 8.6 %; NEUTROPHILS # (AUTO) 9.1 10^3/uL (1.5-6.6); NEUTROPHILS % (AUTO) 66.7 %; PLT - PLATELET COUNT 352 10^3/uL (130-450); RED BLOOD COUNT 4.15 10^6/uL (4.70-6.10); RED CELL DISTRIBUTION WIDTH 13.3 % (12.0-15.0); WHITE BLOOD COUNT 13.6 x10^3/uL (4.8-10.8)
[2021-02-25 06:52] LABS: ALBUMIN 2.9 g/dL (3.2-5.5); ALBUMIN/GLOBULIN RATIO 0.8 (1.0-2.2); BILIRUBIN,TOTAL 0.3 mg/dL (0.2-1.0); CALCIUM 8.3 mg/dL (8.5-10.3); CREATININE 0.8 mg/dL (0.6-1.2); PHOSPHORUS 3.1 mg/dL (2.5-4.6); POTASSIUM 3.6 mmol/L (3.5-5.0); TOTAL PROTEIN 6.5 g/dL (6.7-8.2)
[2021-02-25] MEDS: INSULIN ASPART 300 UNIT/3 ML PEN SUBQ SCH ×3 (08:07→17:37)
[2021-02-25] MEDS: DOCUSATE SODIUM 100 MG CAPSULE PO SCH (09:32)
[2021-02-25] MEDS: polyethylene glycoL 3350 17 GM PACKET PO SCH (09:33)
[2021-02-25] MEDS: CIPROFLOXACIN 400 MG/200 ML 400 MG/200 ML BAG IV SCH (10:55)
[2021-02-25 11:59] LABS: ESTIMATED AVERAGE GLUCOSE 131 mg/dL (70-100); HEMOGLOBIN A1c% 6.2 % (4.27-6.07)
[2021-02-25 12:08] LABS: PREALBUMIN 8 mg/dL (18-45); TRIGLYCERIDES 131 mg/dL
[2021-02-25] MEDS: FAT EMULSION 20% 250 ML IV SCH (19:08)
[2021-02-25] MEDS: TPN (CLINIMIX E 5/15) 2,000 ML with MULTIVITAMIN 10 ML, TRACE ELEMENTS 1 ML IV SCH ×3 (19:08)
[2021-02-25] MEDS: MORPHINE 2 MG/ML CARPUJECT IVP PRN (21:10)
[2021-02-26] MEDS: CIPROFLOXACIN 400 MG/200 ML 400 MG/200 ML BAG IV SCH ×2 (00:25→11:48)
[2021-02-26] MEDS: KETOROLAC 30 MG/ML VIAL IVP SCH ×4 (00:27→17:44)
[2021-02-26] MEDS: METOCLOPRAMIDE 10 MG/2 ML VIAL IVP SCH ×4 (00:29→17:44)
[2021-02-26] MEDS: methocarbamoL 500 MG TABLET PO SCH ×4 (00:29→17:45)
[2021-02-26] MEDS: DOCUSATE SODIUM 100 MG CAPSULE PO SCH ×2 (00:38→10:22)
[2021-02-26] MEDS: polyethylene glycoL 3350 17 GM PACKET PO SCH ×2 (00:39→10:23)
[2021-02-26] MEDS: SODIUM CHLORIDE FLUSH 0.9% 10 ML SYRINGE IVP SCH ×3 (00:39→16:36)
[2021-02-26] MEDS: INSULIN ASPART 300 UNIT/3 ML PEN SUBQ SCH ×5 (00:58→22:12)
[2021-02-26] MEDS: ACETAMINOPHEN 325 MG TABLET PO PRN (03:32)
[2021-02-26] MEDS: metroNIDAZOLE 500 MG/100 ML 500 MG/100 ML BAG IV SCH ×2 (03:32→13:00)
[2021-02-26] MEDS: oxyCODONE 5 MG TABLET PO PRN ×2 (03:33→19:11)
[2021-02-26 06:51] LABS: BASOPHILS # (AUTO) 0.1 10^3/uL (0.0-0.1); BASOPHILS % (AUTO) 0.4 %; EOSINOPHILS # (AUTO) 0.7 10^3/uL (0.0-0.7); EOSINOPHILS % (AUTO) 6.2 %; HCT - HEMATOCRIT 37.3 % (42.0-52.0); HGB - HEMOGLOBIN 12.2 g/dL (14.0-18.0); LYMPHOCYTES # (AUTO) 2.4 10^3/uL (1.5-3.5); LYMPHOCYTES % (AUTO) 20.7 %; MEAN CORPUSCULAR HEMOGLOBIN 30.5 pg (27.0-31.0); MEAN CORPUSCULAR HGB CONC 32.7 g/dL (32.0-36.0); MEAN CORPUSCULAR VOLUME 93.3 fL (80.0-94.0); MEAN PLATELET VOLUME 9.1 fL (7.4-11.4); MONOCYTES # (AUTO) 0.9 10^3/uL (0.0-1.0); MONOCYTES % (AUTO) 8.2 %; NEUTROPHILS # (AUTO) 7.3 10^3/uL (1.5-6.6); PLT - PLATELET COUNT 358 10^3/uL (130-450); RED CELL DISTRIBUTION WIDTH 13.2 % (12.0-15.0); WHITE BLOOD COUNT 11.4 x10^3/uL (4.8-10.8)
[2021-02-26 07:03] LABS: ALBUMIN/GLOBULIN RATIO 0.9 (1.0-2.2); BILIRUBIN,TOTAL 0.6 mg/dL (0.2-1.0); CALCIUM 8.4 mg/dL (8.5-10.3); CREATININE 0.7 mg/dL (0.6-1.2); MAGNESIUM 2.2 mg/dL (1.7-2.8); PHOSPHORUS 4.5 mg/dL (2.5-4.6); POTASSIUM 3.7 mmol/L (3.5-5.0); TOTAL PROTEIN 6.4 g/dL (6.7-8.2)
--- NOTE | 2021-02-26 14:08 | PROVIDER PROGRESS NOTE ---
Progress Note Subjective 51-year-old male with obstructing colonic mass distal descending colon with large hepatic lesion. CT of the chest without any significant pulmonary metastases. Status post below listed procedures. Positive bowel function. Seen by ostomy therapy. Pre-Op Diagnosis: Obstructing descending colonic mass, likely cancer; large left hepatic mass Procedure Performed: 1. Diagnostic laparoscopy 2. Laparoscopic-assisted loop colostomy 3. Laparoscopic assisted liver biopsy 4. Laparoscopic adhesiolysis 5. Laparoscopic assisted abdominal washings with aspirate 6. Open umbilical hernia repair 7. Laparoscopic splenic flexure mobilization Post Op Diagnosis: Same; no peritoneal studding/omental caking Objective Afebrile hemodynamically acceptable General Appearance: positive: No acute distress Eyes Bilateral: positive: Normal inspection ENT: positive: ENT inspection nml Neck: positive: Nml inspection Respiratory: positive: Chest non-tender, No respiratory distress, Breath sounds nml. negative: Wheezes, Rales, Rhonchi Cardiovascular: positive: Regular rate & rhythm Abdomen: positive: No distention, Other. negative: Guarding, Rebound Extremities: positive: Non-tender, Full ROM, Nml appearance Neurologic/Psychiatric: positive: Oriented x3, CN's nml (2-12) Abdominal Exam: Inspection - Erythema none; Scars trocars well healed Auscultation -normoactive bowel sounds Palpation - Hernias none; Fluctuance none; Induration none; Scar N/A Stoma pink and productive. Retracted. Stoma bolster in place. Reza drain serosanguineous Impression/Plan 51-year-old male with obstructing distal descending colonic mass likely malignancy nontraversable. Large hepatic mass. Patient currently diverted with loop colostomy. Patient performed for laparoscopic assisted left hepatic lobe biopsy, multiple. 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 This patient is a potential candidate for neoadjuvant palliative chemoradiation with possible metastasectomy. We will need oncology consult. He will need continued wound and ostomy care. We will remove the stoma bolster and drain as an outpatient. I advised the patient that with appropriate response to therapy this potentially could be addressed with chemotherapy and ultimate combined resection either synchronous or staged if there were no evidence of any additional disease. Multiple studies have shown that left sided colon cancer is even in the setting of noncurative intent to respond favorably to resection. Please note that voice recognition software was used to transcribe this note and inadvertent errors might persist in spite of review and editing. I am obliged to you for your attention. I am thankful to you for allowing me to participate with you in this care of this patient.
--- NOTE | 2021-02-26 15:49 | PROVIDER PROGRESS NOTE ---
Hospitalist Cross-cover Note - Cross-Cover Note Cross-Cover Note: Hospitalist service is signing off the case, as no significant Internal Medicine concerns are present. Please recall if any questions develop.
[2021-02-26] MEDS: MORPHINE 2 MG/ML CARPUJECT IVP PRN (16:36)
[2021-02-26] MEDS: HEPARIN 5,000 UNIT/ML VIAL SUBQ SCH ×2 (16:40→22:13)
[2021-02-26] MEDS: SACCHAROMYCES BOULARDII 250 MG CAPSULE PO SCH (16:42)
[2021-02-26] MEDS: FAT EMULSION 20% 250 ML IV SCH (18:47)
[2021-02-26] MEDS: TPN (CLINIMIX E 5/15) 2,000 ML with MULTIVITAMIN 10 ML, TRACE ELEMENTS 1 ML IV SCH ×3 (18:47)
[2021-02-27] MEDS: methocarbamoL 500 MG TABLET PO SCH ×5 (00:55→23:45)
[2021-02-27] MEDS: SODIUM CHLORIDE FLUSH 0.9% 10 ML SYRINGE IVP SCH ×4 (01:05→23:45)
[2021-02-27] MEDS: METOCLOPRAMIDE 10 MG/2 ML VIAL IVP SCH ×5 (01:08→23:44)
[2021-02-27] MEDS: KETOROLAC 30 MG/ML VIAL IVP SCH ×5 (01:08→23:44)
[2021-02-27] MEDS: oxyCODONE 5 MG TABLET PO PRN ×2 (01:20→08:46)
[2021-02-27] MEDS: SODIUM CHLORIDE FLUSH 0.9% 10 ML SYRINGE IVP PRN ×3 (06:10→12:16)
[2021-02-27 06:36] LABS: BASOPHILS % (AUTO) 0.6 %; EOSINOPHILS % (AUTO) 7.7 %; HCT - HEMATOCRIT 40.8 % (42.0-52.0); HGB - HEMOGLOBIN 13.4 g/dL (14.0-18.0); LYMPHOCYTES % (AUTO) 27.1 %; MEAN CORPUSCULAR HEMOGLOBIN 30.8 pg (27.0-31.0); MEAN CORPUSCULAR HGB CONC 32.8 g/dL (32.0-36.0); MEAN CORPUSCULAR VOLUME 93.8 fL (80.0-94.0); MEAN PLATELET VOLUME 9.4 fL (7.4-11.4); MONOCYTES % (AUTO) 8.4 %; NEUTROPHILS % (AUTO) 55.2 %; PLT - PLATELET COUNT 416 10^3/uL (130-450); RED BLOOD COUNT 4.35 10^6/uL (4.70-6.10); RED CELL DISTRIBUTION WIDTH 13.3 % (12.0-15.0); WHITE BLOOD COUNT 13.9 x10^3/uL (4.8-10.8)
[2021-02-27 06:38] LABS: ABNORMAL LYMPHS % (MANUAL) 0 %; BAND NEUTROPHILS % (MANUAL) 0 %
[2021-02-27 06:43] LABS: ALBUMIN 3.3 g/dL (3.2-5.5); ALBUMIN/GLOBULIN RATIO 0.8 (1.0-2.2); BILIRUBIN,TOTAL 0.5 mg/dL (0.2-1.0); CREATININE 0.8 mg/dL (0.6-1.2); MAGNESIUM 2.3 mg/dL (1.7-2.8); PHOSPHORUS 4.9 mg/dL (2.5-4.6); POTASSIUM 4.1 mmol/L (3.5-5.0); TOTAL PROTEIN 7.3 g/dL (6.7-8.2)
[2021-02-27 06:57] LABS: DIFFERENTIAL COMMENT MANUAL DIFFERENTIAL; EOSINOPHILS # (MANUAL) 1.1 10^3/uL (0-0.7); LYMPHOCYTES # (MANUAL) 3.2 10^3/uL (1.5-3.5); LYMPHOCYTES % (MANUAL) 23 %; MONOCYTES # (MANUAL) 1.1 10^3/uL (0.0-1.0); NEUTROPHILS # (MANUAL) 8.5 10^3/uL (1.5-6.6); PLATELET ESTIMATE, MANUAL NORMAL (130-450,000) (NORMAL); PLATELET MORPHOLOGY NORMAL APPEARANCE (NORMAL); RBC MORPHOLOGY (MULTIPLE) NORMAL APPEARANCE (NORMAL); WBC MORPHOLOGY (MULTIPLE) NORMAL APPEARANCE (NORMAL)
[2021-02-27] MEDS: INSULIN ASPART 300 UNIT/3 ML PEN SUBQ SCH ×4 (07:31→21:39)
[2021-02-27] MEDS: SACCHAROMYCES BOULARDII 250 MG CAPSULE PO SCH ×2 (08:45→17:14)
[2021-02-27] MEDS: ACETAMINOPHEN 325 MG TABLET PO PRN (08:45)
[2021-02-27] MEDS: HEPARIN 5,000 UNIT/ML VIAL SUBQ SCH ×2 (08:50→21:39)
--- NOTE | 2021-02-27 13:40 | PROVIDER PROGRESS NOTE ---
Subjective - Prog Note Date Prog Note Date: 02/27/21 - Subjective Pt reports feeling: Improved (eating 1/2 meals without nausea. stoma working well denies erythema) Objective - Vital Signs/Intake & Output Reviewed Vital Signs: Yes Vital Signs: Vital Signs x48h Temp Pulse Resp BP BP Pulse Ox 02/27/21 13:04 36.7 C 87 16 147/102 H 156/102 H 97 02/27/21 07:20 36.4 C L 74 18 134/97 H 95 Intake & Output: Intake & Output 02/24/21 02/25/21 02/26/21 02/27/21 23:59 23:59 23:59 23:59 Intake Total 3717.4167 2947.533 3052.95 2028.017 Output Total 1720 3210 2221 12 Balance 1996.4167 -262.467 831.95 2016.017 - Objective General Appearance: positive: No acute distress, Alert Eyes Bilateral: positive: PERRL, EOMI ENT: positive: No signs of dehydration Neck: positive: No JVD Respiratory: positive: No respiratory distress Abdomen: positive: Non-tender, No distention, Other (venice scant serosanguinous) Neurologic/Psychiatric: positive: Oriented x3 - Lab Results Fish Bones: 02/27/21 06:11 02/27/21 06:11 Other Labs: Lab Results x24hrs 02/27/21 02/27/21 02/27/21 Range/Units 11:04 07:17 06:11 WBC (4.8-10.8) x10^3/uL RBC (4.70-6.10) 10^6/uL Hgb (14.0-18.0) g/dL Hct (42.0-52.0) % MCV (80.0-94.0) fL MCH (27.0-31.0) pg MCHC (32.0-36.0) g/dL RDW (12.0-15.0) % Plt Count (130-450) 10^3/uL MPV (7.4-11.4) fL Neut # (Auto) Lymph # (Auto) Weston # (Auto) Eos # (Auto) Baso # (Auto) Absolute Nucleated RBC Total Counted Band Neuts % (Manual) (0 - 10) % Abnorm Lymph % (Manual) % Nucleated RBC % Neutrophils # (Manual) (1.5-6.6) 10^3/uL Lymphocytes # (Manual) (1.5-3.5) 10^3/uL Monocytes # (Manual) (0.0-1.0) 10^3/uL Eosinophils # (Manual) (0-0.7) 10^3/uL Basophils # (Manual) (0-0.1) 10^3/uL Differential Comment WBC Morphology (NORMAL) Platelet Estimate (NORMAL) Platelet Morphology (NORMAL) RBC Morph Micro Appear (NORMAL) Sodium 138 (135-145) mmol/L Potassium 4.1 (3.5-5.0) mmol/L Chloride 102 (101-111) mmol/L Carbon Dioxide 25 (21-32) mmol/L Anion Gap 11.0 (6-13) BUN 15 (6-20) mg/dL Creatinine 0.8 (0.6-1.2) mg/dL Estimated GFR (MDRD) 102 (>89) Glucose 155 H (70-100) mg/dL POC Whole Bld Glucose 124 H 123 H (70 - 100) mg/dL Calcium 9.0 (8.5-10.3) mg/dL Phosphorus 4.9 H (2.5-4.6) mg/dL Magnesium 2.3 (1.7-2.8) mg/dL Total Bilirubin 0.5 (0.2-1.0) mg/dL AST 28 (10-42) IU/L ALT 26 (10-60) IU/L Alkaline Phosphatase 134 H (42-121) IU/L Total Protein 7.3 (6.7-8.2) g/dL Albumin 3.3 (3.2-5.5) g/dL Globulin 4.0 (2.1-4.2) g/dL Albumin/Globulin Ratio 0.8 L (1.0-2.2) 02/27/21 02/26/21 02/26/21 Range/Units 06:11 20:30 16:48 WBC 13.9 H (4.8-10.8) x10^3/uL RBC 4.35 L (4.70-6.10) 10^6/uL Hgb 13.4 L (14.0-18.0) g/dL Hct 40.8 L (42.0-52.0) % MCV 93.8 (80.0-94.0) fL MCH 30.8 (27.0-31.0) pg MCHC 32.8 (32.0-36.0) g/dL RDW 13.3 (12.0-15.0) % Plt Count 416 (130-450) 10^3/uL MPV 9.4 (7.4-11.4) fL Neut # (Auto) Not Reportable Lymph # (Auto) Not Reportable Weston # (Auto) Not Reportable Eos # (Auto) Not Reportable Baso # (Auto) Not Reportable Absolute Nucleated RBC Not Reportable Total Counted 100 Band Neuts % (Manual) 0 (0 - 10) % Abnorm Lymph % (Manual) 0 % Nucleated RBC % Not Reportable Neutrophils # (Manual) 8.5 H (1.5-6.6) 10^3/uL Lymphocytes # (Manual) 3.2 (1.5-3.5) 10^3/uL Monocytes # (Manual) 1.1 H (0.0-1.0) 10^3/uL Eosinophils # (Manual) 1.1 H (0-0.7) 10^3/uL Basophils # (Manual) 0.0 (0-0.1) 10^3/uL Differential Comment MANUAL DIFFERENTIAL WBC Morphology NORMAL APPEARANCE (NORMAL) Platelet Estimate NORMAL (130-450,000) (NORMAL) Platelet Morphology NORMAL APPEARANCE (NORMAL) RBC Morph Micro Appear NORMAL APPEARANCE (NORMAL) Sodium (135-145) mmol/L Potassium (3.5-5.0) mmol/L Chloride (101-111) mmol/L Carbon Dioxide (21-32) mmol/L Anion Gap (6-13) BUN (6-20) mg/dL Creatinine (0.6-1.2) mg/dL Estimated GFR (MDRD) (>89) Glucose (70-100) mg/dL POC Whole Bld Glucose 132 H 127 H (70 - 100) mg/dL Calcium (8.5-10.3) mg/dL Phosphorus (2.5-4.6) mg/dL Magnesium (1.7-2.8) mg/dL Total Bilirubin (0.2-1.0) mg/dL AST (10-42) IU/L ALT (10-60) IU/L Alkaline Phosphatase (42-121) IU/L Total Protein (6.7-8.2) g/dL Albumin (3.2-5.5) g/dL Globulin (2.1-4.2) g/dL Albumin/Globulin Ratio (1.0-2.2) Assessment/Plan - Problem List (1) Bowel obstruction Impression: doing well with loop colostomy. pathology pending. d/c tpn after current bag. anticipate home tomorrow Qualifiers: Intestinal obstruction type: other intestinal obstruction Intestinal obstruction extent: partial Qualified Code(s): K56.690 - Other partial intestinal obstruction
[2021-02-27] MEDS ORDERED: ATORVASTATIN 40 MG TABLET PO SCH (21:00)
[2021-02-27] MEDS ORDERED: ATORVASTATIN 10 MG TABLET PO SCH (21:00)
[2021-02-28] MEDS: KETOROLAC 30 MG/ML VIAL IVP SCH ×2 (05:49→12:00)
[2021-02-28] MEDS: METOCLOPRAMIDE 10 MG/2 ML VIAL IVP SCH ×3 (05:49→18:12)
[2021-02-28] MEDS: methocarbamoL 500 MG TABLET PO SCH ×3 (05:50→18:12)
[2021-02-28] MEDS: SACCHAROMYCES BOULARDII 250 MG CAPSULE PO SCH ×2 (08:59→18:12)
[2021-02-28] MEDS: INSULIN ASPART 300 UNIT/3 ML PEN SUBQ SCH ×3 (08:59→16:49)
[2021-02-28] MEDS: HEPARIN 5,000 UNIT/ML VIAL SUBQ SCH (09:00)
[2021-02-28] MEDS ORDERED: lisinopriL 5 MG TABLET PO SCH (09:00)
[2021-02-28] MEDS: SODIUM CHLORIDE FLUSH 0.9% 10 ML SYRINGE IVP SCH ×2 (09:08→18:13)
--- NOTE | 2021-02-28 19:22 | Discharge Plan ---
Discharge Plan Problem Reviewed?: Yes Disposition: Home, Self Care Condition: Good Prescriptions: oxyCODONE [Roxicodone] 5 mg PO Q4HR PRN #30 tablet PRN Reason: Pain methocarbamoL [Robaxin] 500 mg PO Q6HR #50 tablet Diet: Soft Activity Restrictions: Activity as Tolerated Shower Restrictions: No Driving Restrictions: Yes (No driving on narcotis) Health Concerns: Impression/Plan 1. Oxycodone every 4-6 hours as needed for pain 2. Take Colace twice daily and MiraLAX daily as per above while taking narcotics and if no bowel function 3. Avoid nonsteroidals and continue with acetaminophen 650 mg every 6 hours not to exceed 4 g daily 4. Patient to return for OR wound VAC change and debridement and additional partial closure. This is March 01 at 1:30 PM. 5. Patient to call or return to the hospital through ER for fevers, nausea, vomiting, abdominal pain or any other worrisome symptoms or concerns. 6. Patient not to return to any work capacity until seen in clinic. 7. No heavy lifting, pushing, or pulling. Stairs are allowed, no strenuous/exertional activities. 5-10lbs weight carrying limit (i.e. gallon of milk) 8. Call or proceed to clinic/ER for fevers, severe pain, nausea, vomiting, inability to pass flatus/stool, bleeding, wound redness/discharge, weakness, excessively loose stool/diarrhea, or for any other reasonably worrisome symptom or concern. 9. Soft diet, no raw vegetables, avoid high fiber foods. 10. No driving while taking narcotic pain medications. 11. Patient not allowed to drive self today or within 24 hours of surgery. 12. Patient to be discharged with Erza drain. Please educate the patient with regard to its care. 13. Patient to discharge with stoma bolster in place and this will be considered for removal in the clinic. 14. Patient to follow-up in clinic in 2 days for drain removal and postop care. 15. Triple-lumen catheter to be removed as well No Smoking: If you smoke, Please STOP! Call for help. Follow-up with: OXANA WOODWARD MD [Primary Care Provider] - Reno Kemp MD [Provider Admit Priv/Credential] - 1-2 Days
--- NOTE | 2021-02-28 19:33 | DISCHARGE SUMMARY ---
"Discharge Summary Admit Date: 02/20/21 Discharge Date: 02/28/21 Discharging Provider: Justo Code Status: Attempt Resuscitation Condition at Discharge: Good Discharge Disposition: 01 Home, Self Care - DIAGNOSES Admission Diagnoses: 1. Family history of colon cancer 2. Left hepatic mass 3. Large bowel obstruction 4. Umbilical hernia 5. Suspected apple core lesion left colon Discharge Diagnoses with Status of Each Condition: 1. Family history of colon cancer 2. Left hepatic mass - BIOPSIED 3. Large bowel obstruction - RESOLVED 4. Umbilical hernia - REPAIRED 5. Suspected apple core lesion left colon - BIOPSIED 6. Severe protein malnutrition - TREATED - CONSULTS | PROCEDURES Consultations: Hospitalist/Surgery/Wound & Ostomy Procedures: Endoscopic evaluation: Flexible sigmoidoscopy without bowel prep per below: 1. Extensive retained stool. 2. At 40 to 50 cm there was a significant luminal caliber change that could not be traversed with a masslike lesion which was biopsied. This was completely obstructing. 3. This area was cold biopsy performed retrieved. 4. This area was also performed distally for ink tattoo for mucosal marking. 5. Internal hemorrhoids appreciated. Operative Intervention: Pre-Op Diagnosis: Obstructing descending colonic mass, likely cancer; large left hepatic mass Procedure Performed: 1. Diagnostic laparoscopy 2. Laparoscopic-assisted loop colostomy 3. Laparoscopic assisted liver biopsy 4. Laparoscopic adhesiolysis 5. Laparoscopic assisted abdominal washings with aspirate 6. Open umbilical hernia repair 7. Laparoscopic splenic flexure mobilization Post Op Diagnosis: Same; no peritoneal studding/omental caking - HOSPITAL COURSE Hospital Course: 51-year-old male with family history of colorectal cancer who presents with unintended weight loss, worsening obstruction with change in bowel function. CT scan consistent with apple core lesion, sigmoid. Large Left hepatic lobe mass as well. Patient candidate for diagnostic colonoscopy. Admitted to hospitalist service. In discussions with anesthesia, nasogastric tube placed to reduce risk of aspiration periprocedural. Placed by myself. Radiographic confirmation of nasogastric tube within the stomach. Flexible sigmoidoscopy without bowel prep per below: 1. Extensive retained stool. 2. At 40 to 50 cm there was a significant luminal caliber change that could not be traversed with a masslike lesion which was biopsied. This was completely obstructing. 3. This area was cold biopsy performed retrieved. 4. This area was also performed distally for ink tattoo for mucosal marking. 5. Internal hemorrhoids appreciated. Based on these findings and the necessity to proceed with diversion, patient was counseled of the importance to undergo diagnostic laparoscopy for staging as well as for liver biopsy. Although this could be performed by interventional radiology, we could do the simultaneous to the patient's proximal diversion. It was uncertain whether this mass would be amendable to stenting and would carry with it a significant risk of complication going forward. Patient underwent above listed procedure without any complication. Operative findings: 1. Umbilical hernia 2. Large left hepatic liver mass extending to the falciform nearly encompassing the entirety of the left lobe of the liver 3. Obstructing mass noted with distal ink spot tattoo within the descending colon 4. Exceedingly high splenic flexure densely adherent requiring careful adhesiolysis 5. No other areas of metastatic disease; neither peritoneal studding nor any omental caking. 6. Viable stoma Patient underwent operative intervention as listed in the electronic medical record. Tolerated procedure well for which there was no complication. Patient was placed for triple-lumen catheter to start parenteral nutrition. Postoperatively the patient was managed for postoperative analgesia and resumption of bowel function. Patient had successfully passed trial of void with discontinuation of Abraham. Tolerated oral intake without any complication. Denied nausea denied vomiting. Was advanced for diet without any complication. Was counseled that given evidence of umbilical hernia which was repaired at the time of the patient's operative intervention that she should avoid any heavy lifting pushing or pulling. Patient was maintained on a bowel regimen. Patient was tolerating oral analgesia, p.o. nutrition with soft diet, voiding spontaneously, with positive resumption of bowel function. Patient was seen by wound ostomy care as well. Patient had positive resumption of bowel function per stoma without any complication. Afebrile hemodynamically acceptable. Electrolytes repleted throughout and blood counts as a relates to risks of anemia in the perioperative setting and leukocytosis as an inflammatory marker were all stable without any concerns. Discharge instructions given. Analgesia with oxycodone provided at time of discharge. Patient plan for follow-up and will be notified of pathology once returned. Impression/Plan 1. Oxycodone every 4-6 hours as needed for pain 2. Take Colace twice daily and MiraLAX daily as per above while taking narcotics and if no bowel function 3. Avoid nonsteroidals and continue with acetaminophen 650 mg every 6 hours not to exceed 4 g daily 4. Patient to return for OR wound VAC change and debridement and additional partial closure. This is March 01 at 1:30 PM. 5. Patient to call or return to the hospital through ER for fevers, nausea, vomiting, abdominal pain or any other worrisome symptoms or concerns. 6. Patient not to return to any work capacity until seen in clinic. 7. No heavy lifting, pushing, or pulling. Stairs are allowed, no strenuous/exertional activities. 5-10lbs weight carrying limit (i.e. gallon of milk) 8. Call or proceed to clinic/ER for fevers, severe pain, nausea, vomiting, inability to pass flatus/stool, bleeding, wound redness/discharge, weakness, excessively loose stool/diarrhea, or for any other reasonably worrisome symptom or concern. 9. Soft diet, no raw vegetables, avoid high fiber foods. 10. No driving while taking narcotic pain medications. 11. Patient not allowed to drive self today or within 24 hours of surgery. 12. Patient to be discharged with Reza drain. Please educate the patient with regard to its care. 13. Patient to discharge with stoma bolster in place and this will be considered for removal in the clinic. 14. Patient to follow-up in clinic in 2 days for drain removal and postop care. 15. Triple-lumen catheter to be removed as well - ALLERGIES Allergies/Adverse Reactions: Allergies Allergy/AdvReac Type Severity Reaction Status Date / Time No Known Drug Allergies Allergy Verified 02/20/21 12:42 - MEDICATIONS Home Medications: Ambulatory Orders Medication Instructions Recorded Confirmed Atorvastatin [Lipitor] 40 mg PO DAILY 02/20/21 02/20/21 Lisinopril [Zestril] 1 mg PO DAILY 02/20/21 02/20/21 Methylphenidate HCl 20 mg PO DAILY 02/20/21 02/20/21 [Methylphenidate ER] Acetaminophen [Tylenol] 650 mg PO Q4HR PRN tablet 02/28/21 Atorvastatin [Lipitor] 40 mg PO QPM tablet 02/28/21 lisinopriL [Zestril] 10 mg PO DAILY tablet 02/28/21 methocarbamoL [Robaxin] 500 mg PO Q6HR #50 tablet 02/28/21 oxyCODONE [Roxicodone] 5 mg PO Q4HR PRN #30 tablet 02/28/21 - LABS Result Diagrams: 02/27/21 06:11 02/27/21 06:11 - FOLLOW UP Follow Up: General Appearance: positive: No acute distress Eyes Bilateral: positive: Normal inspection ENT: positive: ENT inspection nml Neck: positive: Nml inspection Respiratory: positive: Chest non-tender, No respiratory distress, Breath sounds nml. negative: Wheezes, Rales, Rhonchi Cardiovascular: positive: Regular rate & rhythm Abdomen: positive: No distention, Other. negative: Guarding, Rebound Extremities: positive: Non-tender, Full ROM, Nml appearance Neurologic/Psychiatric: positive: Oriented x3, CN's nml (2-12) Abdominal Exam: Inspection - Erythema none; Scars trocars well healed Auscultation -normoactive bowel sounds Palpation - Hernias none; Fluctuance none; Induration none; Scar N/A Trocar sites intact. Stoma bolster intact. Stoma pink and productive of stool. - TIME SPENT Time Spent in Discharge (Minutes): 60"
[2021-02-28 20:15] VITALS: BP 150/102
== END 2021-02-28 19:45 | disposition home or self-care (01) | DRG 329 ==
LOC: ED 12:23 → MS2 16:22 → OBSVTOIN 02-22 11:44
PROVIDERS: ADMIT Internal Medicine; ATTEND Surgery
PROC: 0DBM8ZX Excision of Descending Colon, Via Natural or Artificial Opening Endoscopic, Diagnostic (ICD-10-PCS; 2021-02-21)
PROC: 3E0H8GC Introduction of Other Therapeutic Substance into Lower GI, Via Natural or Artificial Opening Endoscopic (ICD-10-PCS; 2021-02-21)
PROC: 0DNG4ZZ Release Left Large Intestine, Percutaneous Endoscopic Approach (ICD-10-PCS; 2021-02-23)
PROC: 3E1M38X Irrigation of Peritoneal Cavity using Irrigating Substance, Percutaneous Approach, Diagnostic (ICD-10-PCS; 2021-02-23)
PROC: 0D1M4Z4 Bypass Descending Colon to Cutaneous, Percutaneous Endoscopic Approach (ICD-10-PCS; principal; 2021-02-23 11:00)
PROC: 0FB24ZX Excision of Left Lobe Liver, Percutaneous Endoscopic Approach, Diagnostic (ICD-10-PCS; 2021-02-23 11:00)
DX: C18.6 Malignant neoplasm of descending colon (principal); E43 Unspecified severe protein-calorie malnutrition; C78.7 Secondary malignant neoplasm of liver and intrahepatic bile duct; R73.9 Hyperglycemia, unspecified; E83.39 Other disorders of phosphorus metabolism; K42.9 Umbilical hernia without obstruction or gangrene; I10 Essential (primary) hypertension; E78.00 Pure hypercholesterolemia, unspecified; Z68.27 Body mass index [BMI] 27.0-27.9, adult; F17.200 Nicotine dependence, unspecified, uncomplicated; K64.8 Other hemorrhoids; Z20.822 Contact with and (suspected) exposure to COVID-19; Z80.0 Family history of malignant neoplasm of digestive organs; Z79.899 Other long term (current) drug therapy
CPT/HCPCS: 0202U; 36415; 45380; 45381; 71045; 71260; 74018; 74177; 74183; 76705; 80048; 80053; 81001; 82378; 83036; 83690; 83735; 84100; 84134; 84478; 85025; 96372; 96374; 96375; 96376; 99284; 99285; A9270; A9585; G0378; J1650; J2765; J3490; J7120; Q9967; 81003; 87086

== ENCOUNTER 2021-03-30 07:56 | Day surgery (SDC) | payer OTHER ==
[~2021-03-30 07:56] MED LIST: ceFAZolin 2 GM/50 ML 2 GM/50 ML BAG IV ONE
[2021-03-30] MEDS ORDERED: LACTATED RINGERS 1,000 ML IV ONE ×2 (08:14→10:36)
[2021-03-30] MEDS ORDERED: fentaNYL 100 MCG/2 ML VIAL ONE (08:32)
[2021-03-30] MEDS ORDERED: MIDAZOLAM 2 MG/2 ML VIAL ONE (08:32)
--- NOTE | 2021-03-30 08:39 | ANESTHESIA ---
Pre-Anesthesia VS, & Labs - Diagnosis colon CA with liver mets - Procedure port placement Vital Signs: Temp Pulse Resp BP Pulse Ox 36.3 C L 81 16 137/96 H 98 03/30/21 08:12 03/30/21 08:12 03/30/21 08:12 03/30/21 08:12 03/30/21 08:12 Height: 5 ft 9 in Weight (kg): 79.2 kg Body Mass Index: 25.7 BMI Classification: Overweight - NPO >8 hours Home Medications and Allergies Acetaminophen [8 Hour Pain Relief] 650 mg PO DAILY PM 03/08/21 Lisinopril [Zestril] 10 mg PO DAILY 03/08/21 methocarbamoL [Robaxin] 1,000 mg PO Q6HR 03/08/21 Allergies/Adverse Reactions: Allergies Allergy/AdvReac Type Severity Reaction Status Date / Time No Known Drug Allergies Allergy Verified 02/20/21 12:42 Anes History & Medical History - Anesthetic History Anesthesia Complications: reports: No previous complications Family history of Anesthesia Complications: Denies Family history of Malignant Hyperthermia: Denies - Medical History Cardiovascular: reports: Hypertension, High cholesterol Pulmonary: reports: None Gastrointestinal: reports: Other Urinary: reports: None Neuro: reports: None Musculoskeletal: reports: None Endocrine/Autoimmune: reports: None Blood Disorders: reports: None Skin: reports: None Smoking Status: Former smoker - Surgical History General: reports: Bowel surgery, Colonoscopy Orthopedic: reports: Other Dermatologic: reports: Other Exam General: Alert, Oriented x3, Cooperative Dental: WNL Mouth Openin Fingerbreadth Neck Mobility: Normal Mallampati classification: I Thyromental Distance: 4-6 cm Respiratory: Lungs clear Cardiovascular: Regular rate Plan Anesthesia Type: Total IV Consent for Procedure(s) Verified and Reviewed: Yes Code Status: Attempt Resuscitation ASA classification: 3-Severe systemic disease Is this case an emergency?: No
[2021-03-30] MEDS ORDERED: ePHEDrine 50 MG/ML VIAL IVP PRN (08:46)
[2021-03-30] MEDS ORDERED: HYDROmorphone 0.5 MG/0.5 ML SYRINGE IVP PRN (08:46)
[2021-03-30] MEDS ORDERED: MORPHINE 2 MG/ML CARPUJECT IVP PRN (08:46)
[2021-03-30] MEDS ORDERED: ATROPINE ABBOJECT 1 MG/10 ML SYRINGE IVP PRN (08:46)
[2021-03-30] MEDS ORDERED: ONDANSETRON 4 MG/2 ML VIAL IVP PRN (08:46)
[2021-03-30] MEDS ORDERED: fentaNYL 100 MCG/2 ML VIAL IVP PRN (08:46)
[2021-03-30] MEDS ORDERED: NALOXONE 0.4 MG/ML VIAL IVP PRN (08:46)
[2021-03-30] MEDS ORDERED: LACTATED RINGERS 1,000 ML IV SCH (09:00)
[2021-03-30] MEDS ORDERED: BUPIVACAINE 0.25% PF 10 ML VIAL ONE (09:14)
[2021-03-30] MEDS ORDERED: LIDOCAINE 1% 50 ML MDV ONE (09:14)
--- NOTE | 2021-03-30 09:14 | HISTORY & PHYSICAL EXAMINATION ---
Chief Complaint - Chief Complaint Chief Complaint: need chemotherapy port History of Present Illness - History Obtained From Records Reviewed: yes History obtained from: pt Exam Limitations: none - History of Present Illness HPI Comment/Other: Recent diagnosis and surgery for colon cancer. Chemotherapy has been recommended. History - Past Medical History Cardiovascular: reports: Hypertension, High cholesterol Respiratory: reports: None Neuro: reports: None Endocrine/Autoimmune: reports: None GI: reports: Other : reports: None Psych: reports: ADD/ADHD Musculoskeletal: reports: None Derm: reports: None MRSA Hx?: No - Past Surgical History General: reports: Bowel surgery, Colonoscopy Ortho: reports: Other Derm: reports: Other - Family & Social History Family History Comment/Other: His mother was diagnosed with colon cancer and needed a colon resection. He believes his younger brother may also have a history of colon cancer. He has a brother with a history of heart disease who recently underwent CABG. Both of his grandfathers also had a history of heart disease. Living Situation: With spouse/s.o. Social History Notes: He lives at home with his . He does not currently work. He smoked about half a pack a day since the age of 9. He rarely drinks alcohol. Meds/Allgy - Home Medications Home Medications: Ambulatory Orders Medication Instructions Recorded Confirmed Atorvastatin [Lipitor] 40 mg PO QPM tablet 02/28/21 03/30/21 oxyCODONE [Roxicodone] 5 mg PO Q4HR PRN #30 tablet 02/28/21 03/30/21 Acetaminophen [8 Hour Pain Relief] 650 mg PO DAILY PM 03/08/21 03/30/21 Lisinopril [Zestril] 10 mg PO DAILY 03/08/21 03/30/21 methocarbamoL [Robaxin] 1,000 mg PO Q6HR 03/08/21 03/30/21 Lidocaine/Prilocain 2.5% Cream 5 applic TOP UD #1 gm 03/29/21 03/30/21 [Emla 2.5% Cream] OLANZapine [Zyprexa] 5 mg PO UD #16 tablet 03/29/21 03/30/21 Ondansetron [Ondansetron Odt] 8 mg PO BID PRN #30 tab 03/29/21 03/30/21 Prochlorperazine Maleate 10 mg PO Q6HR PRN #30 tab 03/29/21 03/30/21 [Compazine] - Allergies Allergies/Adverse Reactions: Allergies Allergy/AdvReac Type Severity Reaction Status Date / Time No Known Drug Allergies Allergy Verified 02/20/21 12:42 Review of Systems - Constitutional Constitutional: reports: Fatigue (10 pt ros as above otherwise unremarkable) Exam - Vital Signs Reviewed Vital Signs: Yes Vital Signs: Vital Signs x48h Temp Pulse Resp BP Pulse Ox 03/30/21 08:12 36.3 C L 81 16 137/96 H 98 - Physical Exam General Appearance: positive: No acute distress, Alert Eyes Bilateral: positive: PERRL, EOMI, No scleral icterus ENT: positive: Pharynx nml, No signs of dehydration Neck: positive: No JVD Respiratory: positive: No respiratory distress, Breath sounds nml Cardiovascular: positive: Regular rate & rhythm Abdomen: positive: No distention Neurologic/Psychiatric: positive: Oriented x3 Conclusion/Plan - Problem List (1) Mass of colon Conclusion/Plan: plan chemotherapy port. parq held and consent obtained
[2021-03-30] MEDS ORDERED: LIDOCAINE 1% 50 ML MDV SUBQ ONE ×2 (09:50)
[2021-03-30] MEDS ORDERED: BUPIVACAINE 0.5% PF 30 ML VIAL SUBQ ONE ×2 (09:50)
[2021-03-30] MEDS ORDERED: PROPOFOL 200 MG/20 ML VIAL IVP ONE (09:57)
[2021-03-30] MEDS ORDERED: oxyCODONE 5 MG TABLET PO PRN (10:29)
--- NOTE | 2021-03-30 10:34 | OPERATIVE REPORT ---
Operative Report - General Procedure Date: 03/30/21 Planned Procedure: left subclavian power port Pre-Op Diagnosis: colon cancer and need for chemotherapy Procedure Performed: left subclavian power port Post Op Diagnosis: colon cancer and need for chemotherapy - Procedure Note Primary Surgeon: loi dickson md Anesthesia Technique: Local, MAC Pathology: none Estimated Blood Loss (mL): 5 Drain/Tube Type: Other (none) Indications: need for chemotherapy Findings: good placement and flow with tip at the junction of the svc and atrium Complications: none - Other Other Information/Narrative: The patient was properly identified brought to the operating room and placed in supine position. Monitored anesthesia care was given as well as IV sedation. A towel roll was placed under the upper back. The patient was prepped and draped in a sterile fashion and given preoperative antibiotics. Local anesthetic was given. The left subclavian vein was easily accessed on third pass with a needle. Guide wire placed and position confirmed. A subcutaneous pocket on the left upper chest was created measuring approximately 2-1/2 cm. Portacatheter tubing was then placed subcutaneous up to the venous access point. The portacatheter tubing was then easily placed with the use of a dilator peel- away sheath. The tubing was aspirated and flushed with saline. Under fluoroscopic guidance the tubing was pulled back to the junction of the atrium and the superior vena cava. The portacatheter aspirated and flushed easily assuring good position. The portacatheter was then cut to size and further assembled. The port was secured to subcutaneous tissue with 2 interrupted 4-0 Prolene sutures. The port again was aspirated and flushed now with heparin. Buried interrupted subdermal 3-0 Vicryl sutures were then placed. Skin was closed with buried interrupted and running 4-0 Monocryl subcuticular suture. Dressing was applied. The patient tolerated the procedure well was awakened and brought to recovery in good condition.
[2021-03-30 11:06] VITALS: BP 126/89
--- NOTE | 2021-03-30 13:13 | XRAY Report ---
PROCEDURE: OR Port-A-Cath INDICATIONS: PORT PLACEMENT TECHNIQUE: Fluoroscopic evaluation was performed during placement of Port-A-Cath from left-sided appr [facility]. COMPARISON: None. FINDINGS: A single image from the operative procedure shows Port-A-Cath placed from left-sided approach crossin g the midline and extending inferiorly into the atrial caval junction area. IMPRESSION: Normal Port-A-Cath positioning from left-sided approach. Reviewed by: Jake Holbrook MD on 03/30/2021 1:12 PM PDT Approved by: Jake Holbrook MD on 03/30/2021 1:12 PM PDT Station ID: [id number]
--- NOTE | 2021-03-30 15:02 | ANESTHESIA POST OP EVALUATION ---
Anesthesia Post Eval - Post Anesthesia Eval Vitals: Last Vital Signs Temp 36.2 C L 03/30/21 11:05 Pulse 71 03/30/21 11:05 Resp 16 03/30/21 11:05 BP 126/89 H 03/30/21 11:05 Pulse Ox 100 03/30/21 11:05 CV Function Including HR & BP: Stable Pain Control: Satisfactory Nausea & Vomiting: Negative Mental Status: Baseline Respiratory Status: Airway Patent Hydration Status: Satisfactory Anesthesia Complications: None
== END 2021-03-30 07:57 | disposition home or self-care (01) ==
LOC: SDS 07:56
PROVIDERS: ATTEND Surgery
DX: C18.9 Malignant neoplasm of colon, unspecified (principal); C78.7 Secondary malignant neoplasm of liver and intrahepatic bile duct; Z20.822 Contact with and (suspected) exposure to COVID-19; I10 Essential (primary) hypertension; E78.00 Pure hypercholesterolemia, unspecified; F90.9 Attention-deficit hyperactivity disorder, unspecified type; F17.210 Nicotine dependence, cigarettes, uncomplicated; Z80.0 Family history of malignant neoplasm of digestive organs; Z79.899 Other long term (current) drug therapy
CPT/HCPCS: 36561; 87635; C1788; J0690; J7120

== ENCOUNTER 2022-01-20 13:14 | Day surgery (SDC) | payer OTHER ==
[2022-01-20] MEDS ORDERED: LACTATED RINGERS 1,000 ML IV ONE ×2 (13:47→15:14)
--- NOTE | 2022-01-20 14:04 | ANESTHESIA ---
Pre-Anesthesia VS, & Labs - Diagnosis colon cancer with mets - Procedure colonoscopy and excision of stoma nodule Vital Signs: Temp Pulse Resp BP Pulse Ox 36.5 C 75 16 121/73 100 01/20/22 13:48 01/20/22 13:48 01/20/22 13:48 01/20/22 13:48 01/20/22 13:48 Height: 5 ft 9 in Weight (kg): 77.7 kg Body Mass Index: 25.2 BMI Classification: Overweight - NPO >8 hours Home Medications and Allergies Lisinopril [Zestril] 10 mg PO DAILY 03/08/21 Allergies/Adverse Reactions: Allergies Allergy/AdvReac Type Severity Reaction Status Date / Time No Known Drug Allergies Allergy Verified 01/20/22 13:55 Anes History & Medical History - Anesthetic History Anesthesia Complications: reports: No previous complications - Medical History Cardiovascular: reports: Hypertension, High cholesterol Pulmonary: reports: Sleep apnea (improved after weightloss) Gastrointestinal: reports: Other (colostomy) Urinary: reports: None Neuro: reports: None Musculoskeletal: reports: None Endocrine/Autoimmune: reports: None Blood Disorders: reports: None Skin: reports: None Smoking Status: Former smoker History of Cancer?: Yes (colon cancer, currently taking chemo) - Surgical History General: reports: Bowel surgery, Colonoscopy, Other (left hepatectomy) Orthopedic: reports: Other Dermatologic: reports: Other Plan Anesthesia Type: General, Total IV Consent for Procedure(s) Verified and Reviewed: Yes Code Status: Attempt Resuscitation ASA classification: 3-Severe systemic disease Is this case an emergency?: No
[2022-01-20] MEDS ORDERED: PROPOFOL 500 MG/50 ML 500 MG/50 ML VIAL ONE (14:23)
[2022-01-20] MEDS ORDERED: LIDOCAINE 2%-EPI 1:100000 20 ML MDV SUBQ ONE ×2 (14:57)
[2022-01-20] MEDS ORDERED: LIDOCAINE 2%-EPI 1:100000 20 ML MDV ONE (15:03)
--- NOTE | 2022-01-20 15:41 | ANESTHESIA POST OP EVALUATION ---
Anesthesia Post Eval - Post Anesthesia Eval Vitals: Last Vital Signs Temp 36.2 C L 01/20/22 15:14 Pulse 77 01/20/22 15:20 Resp 16 01/20/22 15:20 BP 116/75 01/20/22 15:20 Pulse Ox 98 01/20/22 15:20 CV Function Including HR & BP: Stable Pain Control: Satisfactory Nausea & Vomiting: Negative Mental Status: Baseline Respiratory Status: Airway Patent Hydration Status: Satisfactory Anesthesia Complications: None
[2022-01-20 16:13] VITALS: BP 121/74
== END 2022-01-20 13:15 | disposition home or self-care (01) ==
LOC: SDS 13:14
PROVIDERS: ATTEND Surgery
PROC: 0DJD8ZZ Inspection of Lower Intestinal Tract, Via Natural or Artificial Opening Endoscopic (ICD-10-PCS; 2022-01-20)
PROC: 0DBN8ZX Excision of Sigmoid Colon, Via Natural or Artificial Opening Endoscopic, Diagnostic (ICD-10-PCS; 2022-01-20)
PROC: 0DB Gastrointestinal System, Excision (ICD-10-PCS; principal; 2022-01-20 14:30)
DX: C18.7 Malignant neoplasm of sigmoid colon (principal); K57.30 Diverticulosis of large intestine without perforation or abscess without bleeding; K64.8 Other hemorrhoids; G47.30 Sleep apnea, unspecified; Z87.891 Personal history of nicotine dependence
CPT/HCPCS: 44388; 45331; 45399; J7120

== ENCOUNTER 2022-03-01 14:40 | Outpatient (CLI) | payer OTHER ==
[2022-03-01 15:10] LABS: CREATININE 0.9 mg/dL (0.6-1.2)
[2022-03-01] MEDS ORDERED: GADOBUTROL 7.5 MMOL/7.5 ML VIAL ONE (15:24)
--- NOTE | 2022-03-01 16:27 | CT Report ---
PROCEDURE: CHEST WO INDICATIONS: COLON CANCER CONTRAST: None TECHNIQUE: 5 mm axial thick sections acquired from the lung apices to the symphysis. 1 mm axial lung window, as well as 5 mm coronal and sagittal reformats were performed, with additional 8 mm axial MIP reformats through the lungs. For radiation dose reduction, the following was used: automated exposure contro l, adjustment of mA and/or kV according to patient size. COMPARISON: CT of the chest 01/11/2020 FINDINGS: Image quality: Excellent. CHEST: Lungs and pleura: No acute air space opacities. Previously described subpleural groundglass opacity in the left lower lobe has resolved. No pleural effusions or pneumothorax. Central and peripheral ai rways are patent and normal in caliber. Mediastinum: Heart size is normal. The coronary arteries have atherosclerotic calcifications. No p ericardial effusion. No mediastinal adenopathy by size criteria. Thoracic aorta and central pulmona ry arteries are normal in size. Esophagus is normal in caliber. No hiatal hernia. Bones and chest wall: No suspicious bony lesions. No vertebral body compression fractures. No axil prashant or supraclavicular adenopathy by size criteria. The thyroid is normal in size. Abdomen: Partially visualized upper abdomen demonstrates postoperative changes of left hepatectomy. N o masses in the right lobe of the liver. There is a ileostomy in the left upper quadrant. IMPRESSION: 1. No evidence of metastatic disease to the chest. 2. Small focus of subpleural groundglass opacity in the left lower lobe has resolved. 3. Postoperative changes of left lobe hepatectomy. Reviewed by: Kamaljit Lewis on 03/01/2022 4:25 PM PDT Approved by: Kamaljit Lewis on 03/01/2022 4:25 PM PDT Station ID: [id number]
[2022-03-01] MEDS ORDERED: GADOBUTROL 7.5 MMOL/7.5 ML VIAL IVP ONE (17:19)
--- NOTE | 2022-03-02 09:19 | MRI Report ---
PROCEDURE: Abdomen W/WO INDICATIONS: COLON CANCER CONTRAST: IV CONTRAST: Gadavist ml: 7.5 TECHNIQUE: Coronal ultra fast SE, axial 2D spoiled GE in- and [id number]; axial breath-hold T2 fast SE. Dynam ic axial ultra fast GE during the administration of contrast; post-contrast coronal ultra fast GE or 2D spoiled GE with fat saturation from the hepatic dome to the iliac crests. Optional diffusion weig hted imaging and ADC may be performed. COMPARISON: 11/15/2021 FINDINGS: Image quality: Excellent. Lung bases: No basal pleural effusions. Heart size is normal. Solid organs: There are surgical changes of left hepatic lobectomy. The remaining liver demonstrates normal size, contour, and signal. No suspicious enhancing mass. The spleen is normal size. Normal ad renal glands, pancreas, kidneys, gallbladder, and biliary system. Nodes and vessels: No retroperitoneal or mesenteric adenopathy by size criteria. Aorta and inferior vena cava are normal in size. The splenic vein is patent. The portal vein is normally opacified. No filling defects. Bowel and peritoneum: Left lower quadrant colostomy. Stomach and bowel loops are normal in caliber. No free fluid. Bones and soft tissues: No ventral hernias. Bone marrow is normal in overall signal. IMPRESSION: 1. No evidence of residual disease post left hepatectomy. 2. No evidence of new metastatic disease in the abdomen. Reviewed by: Adina Snow MD on 03/02/2022 9:17 AM PDT Approved by: Adina Snow MD on 03/02/2022 9:17 AM PDT Station ID: [id number]
== END 2022-03-01 14:41 | disposition home or self-care (01) ==
LOC: LAB 14:40
PROVIDERS: ATTEND Internal Medicine
DX: C18.6 Malignant neoplasm of descending colon (principal); Z85.05 Personal history of malignant neoplasm of liver; Z90.49 Acquired absence of other specified parts of digestive tract
CPT/HCPCS: 36415; 71250; 74183; 82565; A9585

== ENCOUNTER 2022-11-02 15:07 | Emergency (ER) | payer OTHER ==
--- NOTE | 2022-11-02 15:35 | ED Physician Documentation ---
PD HPI ABD PAIN - Stated complaint Stated Complaint: MALE - Chief complaint Chief Complaint: Abd Pain - History obtained from History obtained from: Patient - Additional information Additional information: This is a 52-year-old gentleman with history of stage IV colon cancer originally diagnosed in February 2021 with mets in the liver. He recently transitioned to Stivarga having previously been on Avastin and FOLFOX. He has known peristomal lesions that are malignant and presents today because his stoma is withdrawing intra-abdominal he with the defect growing in diameter such that today his st omal appliance does not cover the defect. He also has a new painful left inguinal lymph node over the last few weeks. PD PAST MEDICAL HISTORY - Past Medical History Cardiovascular: Hypertension, High cholesterol Respiratory: None Neuro: None Endocrine/Autoimmune: None GI: Other (colostomy) : None Psych: ADD/ADHD Musculoskeletal: None Derm: None - Past Surgical History General: Bowel surgery, Colonoscopy, Other Ortho: Other Derm: Other - Present Medications Home Medications: Ambulatory Orders Medication Instructions Recorded Confirmed Ondansetron Odt [Zofran Odt] 4 mg PO PRN PRN 02/24/22 08/23/22 oxyCODONE [Roxicodone] 5 mg PO Q6H PRN 15 Days #180 tablet 08/23/22 Regorafenib [Stivarga] 160 mg PO DAILY 08/25/22 08/25/22 Nirmatrelvir/Ritonavir [Paxlovid 1 PO BID 09/12/22 300-100 mg Pack (Eua)] - Allergies Allergies/Adverse Reactions: Allergies Allergy/AdvReac Type Severity Reaction Status Date / Time No Known Drug Allergies Allergy Verified 11/02/22 15:16 - Social History Does the pt smoke?: Yes Smoking Status: Former smoker Does the pt drink ETOH?: Yes Does the pt have substance abuse?: No PD ED PE NORMAL - Vitals Vital signs reviewed: Yes - General General: Alert and oriented X 3, No acute distress - HEENT HEENT: PERRL, EOMI - Neck Neck: Supple, no meningeal sign, No bony TTP - Cardiac Cardiac: RRR, No murmur - Respiratory Respiratory: No respiratory distress, Clear bilaterally - Male Male : Other (large tender left inguinal lymph node) - Back Back: No CVA TTP, No spinal TTP - Derm Derm: Normal color, Warm and dry - Extremities Extremities: No edema, No calf tenderness / cord - Neuro Neuro: Alert and oriented X 3, Normal speech - Psych Psych: Normal mood, Normal affect Results - Vitals Vitals: Vital Signs - 24 hr 11/02/22 15:10 Temperature 36.2 C L Heart Rate 73 Respiratory 15 Rate Blood Pressure 163/90 H O2 Saturation 100 Oxygen O2 Source Room air PD Medical Decision Making - ED course ED course: 52-year-old gentleman presents with worsening issues with his stoma because of malignant disease. Shortly after initial evaluation I placed a call to our on- call surgeon, Dr. Mejia who will be happy to consult. Dr. Mejia did consult and felt patient needs a expedited but nonemergent referral to the [facility] for revision. Departure - Departure Disposition: 01 Home, Self Care Clinical Impression: History of creation of ostomy, Colon carcinoma metastatic to multiple sites Condition: Good Record reviewed to determine appropriate education?: Yes Instructions: Ostomy Pouch Change Dc Comments: Our surgeon today feels that you should probably have a revision of your ostomy done at the [facility]. I sent an email to the [facility] clinic to hopefully expedite this referral. Return for new or worsening symptoms.
[2022-11-02 16:45] VITALS: BP 142/87
--- NOTE | 2022-11-02 17:07 | CONSULTATION NOTE ---
Referring Provider Name of Referring Provider:: Dr. Ramírez Massey Consult Date: 11/02/22 Chief Complaint - Chief Complaint Chief Complaint: Progressive malignancy with involvement of colostomy History of Present Illness - Admitted From Admitted From:: Not - History Obtained From Records Reviewed: Yes History obtained from: Patient - History of Present Illness HPI Comment/Other: The patient is an exceedingly pleasant 52-year-old male who is evaluated in room [address] [facility]'s emergency department at the request of Dr. Ramírez Massey for progression of his malignancy with involvement of his colostomy. The patient was diagnosed in 2020 and was given a colostomy. Subsequent to this he has been placed on a Avastin and FOLFOX, then FOLFIRI, then Stivarga which he currently is taking (last dose I believe this Sunday). He started having a lesion which was noted to be malignant in December of last year and despite treatment with the Stivarga this is progressed to 7 and then now 9 cm. This has been accompanied by retraction of his ostomy. It is still functi onal. History - Past Medical History Cardiovascular: reports: Hypertension, High cholesterol Respiratory: reports: None Neuro: reports: None Endocrine/Autoimmune: reports: None GI: reports: Other (colostomy) : reports: None Psych: reports: ADD/ADHD Musculoskeletal: reports: None Derm: reports: None MRSA Hx?: No Other Past Medical History: Stage IV colon cancer w/mets to liver - Past Surgical History General: reports: Bowel surgery, Colonoscopy, Other Ortho: reports: Other Derm: reports: Other - Family & Social History Family History Comment/Other: His mother was diagnosed with colon cancer and needed a colon resection. He believes his younger brother may also have a history of colon cancer. He has a brother with a history of heart disease who recently underwent CABG. Both of his grandfathers also had a history of heart disease. Living Situation: With spouse/s.o. Social History Notes: He lives at home with his . He does not currently work. He smoked about half a pack a day since the age of 9. He rarely drinks alcohol. - POLST Patient has POLST: No Meds/Allgy - Home Medications Home Medications: Ambulatory Orders Medication Instructions Recorded Confirmed Ondansetron Odt [Zofran Odt] 4 mg PO PRN PRN 02/24/22 08/23/22 oxyCODONE [Roxicodone] 5 mg PO Q6H PRN 15 Days #180 tablet 08/23/22 Regorafenib [Stivarga] 160 mg PO DAILY 08/25/22 08/25/22 Nirmatrelvir/Ritonavir [Paxlovid 1 PO BID 09/12/22 300-100 mg Pack (Eua)] - Allergies Allergies/Adverse Reactions: Allergies Allergy/AdvReac Type Severity Reaction Status Date / Time No Known Drug Allergies Allergy Verified 11/02/22 15:16 Review of Systems - Other Findings Other Findings: I did not perform an extensive review of systems as it is not indicated for this problem. Exam - Vital Signs Reviewed Vital Signs: Yes Vital Signs: Vital Signs x48h Temp Pulse Resp BP Pulse Ox 11/02/22 16:44 37.1 C 77 18 142/87 H 100 11/02/22 15:10 36.2 C L 73 15 163/90 H 100 - Physical Exam General Appearance: positive: No acute distress Eyes Bilateral: positive: No lid inflammation, Conjunctivae nml ENT: positive: No signs of dehydration Neck: positive: Trachea midline Respiratory: positive: Chest non-tender, No respiratory distress, Breath sounds nml Cardiovascular: positive: Regular rate & rhythm Abdomen: positive: Other (Ostomy retracting with poor function of the ostomy appliance. Clearly the appliance needs to be much larger. The current one is 2 and three-quarter inches. A larger ostomy appliance will not solve the problem is it is likely that this needs to be reoperated on.) Conclusion/Plan - Lab Results Lab results reviewed: Yes - Other Other Results/Comments: This is an exceedingly difficult surgical problem in the sense that the tumor needs to be excised but in doing so it would leave him with a large abdominal defect. The patient has stage IV colon cancer and then the question would be how to you close this defect and where else would you place the ostomy that would be appropriately functional without impinging upon this open wound. Closure would need to be done in a biologic fashion concerning the fact that he has a colostomy. These are not resources that we have available to us at this hospital. My strong recommendation is that he be seen at the [facility] where he had his hepatectomy for consideration of surgery to relieve the tumor burden at the ostomy site and closure of his abdominal wound as a result. This was discussed with him and he was given a 4 inch ostomy appliance to help tide him over. I wish to thank Dr. Massey very much for the opportunity to participate in this patient's care. I wish the patient expedited good health. CPT 55971
== END 2022-11-02 17:20 | disposition home or self-care (01) ==
LOC: ED 15:07
DX: C18.9 Malignant neoplasm of colon, unspecified (principal); Z93.3 Colostomy status; Z87.891 Personal history of nicotine dependence
CPT/HCPCS: 99281; 99284

== ENCOUNTER 2022-11-08 16:32 | Emergency (ER) | payer OTHER ==
[2022-11-08] MEDS ORDERED: SODIUM CHLORIDE 0.9% 1,000 ML IV STA (16:44)
[2022-11-08] MEDS ORDERED: iohexoL-300 100 ML VIAL ONE ×2 (17:01→17:30)
--- NOTE | 2022-11-08 17:20 | ED Physician Documentation ---
PD HPI DYSPNEA - Stated complaint Stated Complaint: SOA - Chief complaint Chief Complaint: Resp - History obtained from History obtained from: Patient - Additional information Additional information: This is a 52-year-old gentleman with metastatic colon cancer who was recently admitted at [place] for evaluation of his stomal mass. While there he developed an oxygen requirement which was not explained. He states that he went down to 82% with ambulation in the hospital. Plain x-rays were negative. He was released from the hospital today and went to see his oncologist who became concerned about this as the patient did not have a PE work-up. Patient is short of breath but denies chest pain. PD PAST MEDICAL HISTORY - Past Medical History Cardiovascular: Hypertension, High cholesterol Respiratory: None Neuro: None Endocrine/Autoimmune: None GI: Other (colostomy) : None Psych: ADD/ADHD Musculoskeletal: None Derm: None - Past Surgical History Past Surgical History: Yes General: Bowel surgery, Colonoscopy, Other Ortho: Other Derm: Other - Present Medications Home Medications: Ambulatory Orders Medication Instructions Recorded Confirmed Ondansetron Odt [Zofran Odt] 4 mg PO PRN PRN 02/24/22 08/23/22 oxyCODONE [Roxicodone] 5 mg PO Q6H PRN 15 Days #180 tablet 08/23/22 Regorafenib [Stivarga] 160 mg PO DAILY 08/25/22 08/25/22 Nirmatrelvir/Ritonavir [Paxlovid 1 PO BID 09/12/22 300-100 mg Pack (Eua)] Doxycycline [Vibramycin] 100 mg PO BID #14 tablet 11/08/22 predniSONE [Deltasone] 20 mg PO [id number] #21 tab 11/08/22 - Allergies Allergies/Adverse Reactions: Allergies Allergy/AdvReac Type Severity Reaction Status Date / Time No Known Drug Allergies Allergy Verified 11/08/22 16:54 - Social History Does the pt smoke?: Yes Smoking Status: Former smoker Does the pt drink ETOH?: Yes Does the pt have substance abuse?: No - POLST Patient has POLST: No PD ED PE NORMAL - Vitals Vital signs reviewed: Yes (Room air sat 92%, tachycardic to 101) - General General: Alert and oriented X 3, No acute distress - Cardiac Cardiac: Other (Mild resting tachycardia) - Respiratory Respiratory: No respiratory distress, Clear bilaterally - Extremities Extremities: No edema, No calf tenderness / cord - Neuro Neuro: Alert and oriented X 3, Normal speech Results - Vitals Vitals: Vital Signs - 24 hr 11/08/22 11/08/22 11/08/22 16:47 17:13 17:37 Temperature 37.4 C Heart Rate 101 H 89 Respiratory 18 16 17 Rate Blood Pressure 117/71 118/78 O2 Saturation 92 99 11/08/22 18:42 Temperature Heart Rate 93 Respiratory 15 Rate Blood Pressure O2 Saturation 94 Oxygen O2 Source Room air - Rads (name of study) CTPA Relevant Findings:: Final report received, EMP independent interpretation of test PD Medical Decision Making - ED course ED course: Patient referred to the emergency department to rule out PE since he is having decreased oxygen saturations in the setting of known metastatic disease. His CT pulmonary angiogram was negative for PE but does show groundglass opacities suggestive of an infection or inflammation and worsening metastatic disease in the chest. For this he will be started on antibiotics and steroids and referred back to oncology. Labs were done earlier in the day in the clinic and reviewed so not repeated in the emergency department. Departure - Departure Disposition: 01 Home, Self Care Clinical Impression: Dyspnea Qualifiers: Dyspnea type: shortness of breath Qualified Code(s): R06.02 - Shortness of breath; R06.00 - Dyspnea, unspecified; R06.01 - Orthopnea Condition: Good Record reviewed to determine appropriate education?: Yes Instructions: ED Dyspnea Shortness of Breath Prescriptions: predniSONE [Deltasone] 20 mg PO [id number] #21 tab Doxycycline [Vibramycin] 100 mg PO BID #14 tablet Comments: No blood clot on the CAT scan today, but you do have worsening metastatic disease in your lungs plus some new findings of infection or inflammation for which I am prescribing antibiotics and steroids. Follow-up with Dr. Lee next week. Return for new or worsening symptoms.
--- NOTE | 2022-11-08 18:39 | CT Report ---
PROCEDURE: ANGIO CHEST W/WO INDICATIONS: dyspnea, colon ca, pe protocol CONTRAST: 80mL Omni 300 TECHNIQUE: After the administration of intravenous contrast, 2 mm axial images were acquired from the pulmonary apices to the posterior costophrenic angles during the arterial phase. In addition, 1 mm lung kernel and 5 mm soft tissue kernel reconstructions were performed. 3-dimensional coronal oblique maximum int ensity projection (MIP) reformats, 8 mm axial MIP, and 5 mm coronal and sagittal MPR reformats were t hen performed through the thorax. For radiation dose reduction, the following was used: automated exp osure control, adjustment of mA and/or kV according to patient size. COMPARISON: CT chest 10/13/2022 FINDINGS: Image quality: Excellent. Pulmonary arteries: Pulmonary arteries are normal in size, and demonstrate no intraluminal filling d efects to suggest central pulmonary embolism. Lungs and pleura: In interval since the prior exam, there has been development of patchy groundglass appearing opacities throughout the lungs with dependent changes in the bases. Multiple bilateral pulm onary nodules/mass lesions are identified, continuing to increase in size with the largest in the lef t upper lobe measuring 1.5 cm compared to 1.3 on prior exam. Mediastinum: Heart size is normal, without pericardial effusion. No mediastinal or hilar adenopathy . Thoracic aorta is normal in caliber and enhancement. Esophagus is normal in caliber, without hiat al hernia. Bones and chest wall: No suspicious bony lesions. Ribs and thoracic spine appear intact throughout. No axillary or supraclavicular adenopathy. The thyroid is normal in size and there are no incident al findings. Abdomen: Visualized upper abdominal solid organs appear normal in the early arterial phase of enhanc ement. IMPRESSION: Interval development of groundglass opacities within the lungs suggestive of infection or inflammatio n. Previous identified pulmonary nodule/mass lesions have continued to increase in size consistent with known metastatic disease. CLINICAL RECOMMENDATION STATEMENTS: In patients <35 years with an ITN detected on CT, MRI, or extrathyroidal ultrasound, the Committee re commends further evaluation with dedicated thyroid ultrasound if the nodule is "e1 cm and has no susp icious imaging features, and if the patient has normal life expectancy. In patients "e35 years with an ITN detected on CT, MRI, or extrathyroidal ultrasound, the Committee r ecommends further evaluation with dedicated thyroid ultrasound if the nodule is "e1.5 cm and has no s uspicious imaging features, and if the patient has normal life expectancy. (ACR, 2014) Reviewed by: Mandy Gramajo MD on 11/08/2022 6:38 PM PDT Approved by: Mandy Gramajo MD on 11/08/2022 6:38 PM PDT Station ID: [id number]
[2022-11-08 19:09] VITALS: BP 118/89
[2022-11-08] MEDS ORDERED: iohexoL-300 100 ML VIAL IVP ONE (19:47)
== END 2022-11-08 19:11 | disposition home or self-care (01) ==
LOC: ED 16:32
DX: R06.00 Dyspnea, unspecified (principal); R06.01 Orthopnea; I10 Essential (primary) hypertension; Z87.891 Personal history of nicotine dependence
CPT/HCPCS: 36415

== ENCOUNTER 2022-11-20 21:53 | Observation (INO) | payer OTHER, MEDICAID ==
[2022-11-20] MEDS ORDERED: MORPHINE 2 MG/ML CARPUJECT IVP STA (22:32)
[2022-11-20] MEDS ORDERED: SODIUM CHLORIDE 0.9% 1,000 ML IV STA (22:33)
--- NOTE | 2022-11-20 22:41 | ED Physician Documentation ---
History of Present Illness - Stated complaint Stated Complaint: ABD PX - Chief complaint Chief Complaint: Abd Pain - History obtained from History obtained from: Patient, Family () - Additonal information Additional information: 52-year-old man with history of metastatic colon cancer presents with diffuse abdominal pain since 1600. Patient states that the pain is cramping, severe, sudden in onset. He is still having output through his colostomy but says that it is slightly decreased from usual. He is passing some gas. denies fever, nausea. also with intermittent R inguinal swelling over the past few days. Review of Systems Constitutional: denies: Fever, Chills GI: reports: Abdominal Pain. denies: Nausea, Vomiting PD PAST MEDICAL HISTORY - Past Medical History Cardiovascular: Hypertension, High cholesterol Respiratory: None Neuro: None Endocrine/Autoimmune: None GI: Other (colostomy) : None HEENT: None Psych: ADD/ADHD Musculoskeletal: None Derm: None - Past Surgical History Past Surgical History: Yes General: Bowel surgery, Colonoscopy, Other Ortho: Other Derm: Other - Present Medications Home Medications: Ambulatory Orders Medication Instructions Recorded Confirmed Ondansetron Odt [Zofran Odt] 4 mg PO PRN PRN 02/24/22 11/15/22 oxyCODONE [Roxicodone] 5 mg PO Q6H PRN 15 Days #180 tablet 08/23/22 Regorafenib [Stivarga] 160 mg PO DAILY 08/25/22 11/15/22 Nirmatrelvir/Ritonavir [Paxlovid 1 PO BID 09/12/22 300-100 mg Pack (Eua)] Doxycycline [Vibramycin] 100 mg PO BID #14 tablet 11/08/22 predniSONE [Deltasone] 20 mg PO [id number] #21 tab 11/08/22 - Allergies Allergies/Adverse Reactions: Allergies Allergy/AdvReac Type Severity Reaction Status Date / Time No Known Drug Allergies Allergy Verified 11/20/22 21:57 - Social History Does the pt smoke?: Yes Smoking Status: Former smoker Does the pt drink ETOH?: Yes Does the pt have substance abuse?: No - Immunizations Immunizations are current?: Yes - POLST Patient has POLST: No PD ED PE NORMAL - Vitals Vital signs reviewed: Yes - General General: Alert and oriented X 3, No acute distress, Well developed/nourished - HEENT HEENT: Atraumatic, PERRL, EOMI - Neck Neck: Supple, no meningeal sign - Cardiac Cardiac: RRR - Respiratory Respiratory: No respiratory distress, Clear bilaterally - Abdomen Abdomen: Other (diffusely ttp. L sided ostomy, pink, with some deformity c/w of metastatic disease. stool actively extruding from ostomy. R inguinal region with swelling c/w hernia) - Derm Derm: Normal color, Warm and dry Results - Vitals Vitals: Vital Signs - 24 hr 11/20/22 11/20/22 11/21/22 21:57 23:07 00:09 Temperature 36.5 C Heart Rate 69 79 89 Respiratory 20 20 14 Rate Blood Pressure 124/81 H 139/104 H 154/89 H O2 Saturation 99 100 100 If not protocol : Oxygen Flow, liters/minute 11/21/22 11/21/22 11/21/22 01:05 04:12 06:16 Temperature Heart Rate 92 94 97 Respiratory 16 12 12 Rate Blood Pressure 149/86 H 136/97 H 119/85 H O2 Saturation 100 97 97 If not protocol 2 : Oxygen Flow, liters/minute Oxygen O2 Source Room air - Labs Labs: Laboratory Tests 11/20/22 11/20/22 11/21/22 22:45 22:45 02:47 WBC 21.8 H RBC 4.28 L Hgb 13.0 L Hct 41.3 L MCV 96.5 H MCH 30.4 MCHC 31.5 L RDW 16.4 H Plt Count 173 MPV 10.4 Neut # (Auto) Not Reportable Lymph # (Auto) Not Reportable [place] # (Auto) Not Reportable Eos # (Auto) Not Reportable Baso # (Auto) Not Reportable Absolute Nucleated RBC Not Reportable Total Counted 100 Band Neuts % (Manual) 2 Abnorm Lymph % (Manual) 0 Nucleated RBC % Not Reportable Neutrophils # (Manual) 17.0 H Lymphocytes # (Manual) 4.1 H Monocytes # (Manual) 0.7 Eosinophils # (Manual) 0.0 Basophils # (Manual) 0.0 Differential Comment MANUAL DIFFERENTIAL Manual Slide Review Indicated WBC Morphology NORMAL APPEARANCE Platelet Estimate NORMAL (130-450,000) Platelet Morphology NORMAL APPEARANCE RBC Morph Micro Appear NORMAL APPEARANCE Sodium 136 Potassium 3.5 Chloride 103 Carbon Dioxide 25 Anion Gap 8.0 BUN 19 Creatinine 0.5 L Estimated GFR (MDRD) 175 Glucose 147 H Lactic Acid 2.2 Calcium 8.1 L Total Bilirubin 1.0 AST 43 H ALT 44 Alkaline Phosphatase 144 H Total Protein 7.2 Albumin 2.8 L Globulin 4.4 H Albumin/Globulin Ratio 0.6 L Lipase 47 PD Medical Decision Making - ED course ED course: 52-year-old man with metastatic colon cancer presents with diffuse abdominal pain 6 1600. CBC, abdominal panel, CT abdomen and pelvis with oral contrast ordered. IV morphine provided with improvement in pain. developing SBO vs ileus on CT. d/w patient who refused ng tube. he is agreeable to continuing pain medication and IVF. d/w Dr. Nelson who will see patient. No beds available tonight so he will board until morning. 3:30am - patient with large first time episode of BRBPR. Patient endorsed to Dr. Livingston, daytime ED MD at 7am shift change pending bed availability. Dr. Nelson to see him today. Departure - Departure Disposition: ED Place in Observation Clinical Impression: SBO (small bowel obstruction) Condition: Stable
[2022-11-20] MEDS ORDERED: iohexoL-300 100 ML VIAL ONE (22:46)
[2022-11-20 22:51] LABS: BASOPHILS % (AUTO) 0.2 %; HCT - HEMATOCRIT 41.3 % (42.0-52.0); LYMPHOCYTES % (AUTO) 13.2 %; MEAN CORPUSCULAR HEMOGLOBIN 30.4 pg (27.0-31.0); MEAN CORPUSCULAR HGB CONC 31.5 g/dL (32.0-36.0); MEAN CORPUSCULAR VOLUME 96.5 fL (80.0-94.0); MEAN PLATELET VOLUME 10.4 fL (7.4-11.4); MONOCYTES % (AUTO) 5.8 %; NEUTROPHILS % (AUTO) 80.4 %; PLT - PLATELET COUNT 173 10^3/uL (130-450); RED BLOOD COUNT 4.28 10^6/uL (4.70-6.10); RED CELL DISTRIBUTION WIDTH 16.4 % (12.0-15.0); WHITE BLOOD COUNT 21.8 x10^3/uL (4.8-10.8)
[2022-11-20 22:54] LABS: SLIDE REVIEW? Indicated
[2022-11-20 22:55] LABS: ABNORMAL LYMPHS % (MANUAL) 0 %
[2022-11-20 23:03] LABS: ALBUMIN 2.8 g/dL (3.2-5.5); ALBUMIN/GLOBULIN RATIO 0.6 (1.0-2.2); CALCIUM 8.1 mg/dL (8.5-10.3); CREATININE 0.5 mg/dL (0.6-1.2); POTASSIUM 3.5 mmol/L (3.5-5.0); TOTAL PROTEIN 7.2 g/dL (6.7-8.2)
[2022-11-20] MEDS ORDERED: DIATR MEGLU/DIATRIZOATE SODIUM 120 ML BOTTLE ONE (23:06)
[2022-11-20 23:09] LABS: BAND NEUTROPHILS % (MANUAL) 2 %; DIFFERENTIAL COMMENT MANUAL DIFFERENTIAL; LYMPHOCYTES # (MANUAL) 4.1 10^3/uL (1.5-3.5); LYMPHOCYTES % (MANUAL) 19 %; MONOCYTES # (MANUAL) 0.7 10^3/uL (0.0-1.0); PLATELET ESTIMATE, MANUAL NORMAL (130-450,000) (NORMAL); PLATELET MORPHOLOGY NORMAL APPEARANCE (NORMAL); RBC MORPHOLOGY (MULTIPLE) NORMAL APPEARANCE (NORMAL); WBC MORPHOLOGY (MULTIPLE) NORMAL APPEARANCE (NORMAL)
[2022-11-21] MEDS ORDERED: HYDROmorphone 1 MG/ML CARPUJECT IVP STA ×2 (00:27→06:59)
[2022-11-21] MEDS ORDERED: iohexoL-300 100 ML VIAL IVP ONE (01:15)
--- NOTE | 2022-11-21 01:18 | CT Report ---
PROCEDURE: ABDOMEN/PELVIS W INDICATIONS: diffuse abdominal pain - eval for bowel obstruction CONTRAST: Omni 300 100ml TECHNIQUE: After the administration of oral and intravenous contrast, 5 mm thick sections acquired from the diap hragms to the symphysis. 5 mm thick coronal and sagittal reformats were acquired. For radiation dos e reduction, the following was used: automated exposure control, adjustment of mA and/or kV accordin g to patient size. COMPARISON: CT pulmonary angiogram 11/08/2022. CT abdomen pelvis 10/13/2022. FINDINGS: Image quality: Excellent. Lung bases and heart: Bibasilar atelectasis. Left upper lobe pulmonary nodule measuring 1.6 cm, (4/7) , unchanged. This was not present on 09/02/2021. Central venous line at the cavoatrial junction. Moder ate coronary artery calcifications. Liver: Left hepatectomy. No focal lesion. Gallbladder and biliary tree: Within normal limits. Spleen: Unremarkable. Pancreas: Unremarkable. Adrenals: No nodule. Kidneys and ureters: No hydronephrosis. Small nodular right kidney stones. Bowel and peritoneum: Left abdomen colostomy. The cecum is prominent. Stomach is distended. Prominent loops of small bowel. Edema adjacent to the small bowel in the right lower quadrant. Lymph nodes: No central or retroperitoneal adenopathy. Vessels: No abdominal aortic aneurysm. Moderate plaque. Trace edema suspected in the retroperitoneum adjacent to the aorta, (349). Left abdomen varices. PELVIS Reproductive organs: Unremarkable. Bladder: Unremarkable. Lymph nodes: Left groin node measuring 1.8 cm, (381), remotely 0.7 cm in 2020. Bones: No aggressive osseous abnormality. Other: Small amount of fluid in the right inguinal hernia. IMPRESSION: 1. Prominent loops of small bowel with mesenteric edema. No discrete transition point. Stomach and ce cum are also distended. Findings could be due to developing small bowel obstruction or ileus. 2. Left upper lobe pulmonary nodule measuring 1.6 cm. This is most consistent with metastatic disease . 3. Left hepatectomy. 4. Left groin node measuring 1.6 cm is unchanged. Reviewed by: George New MD on 11/21/2022 1:16 AM PDT Approved by: George New MD on 11/21/2022 1:16 AM PDT Station ID: [id number]
[2022-11-21] MEDS ORDERED: DIATRIZOATE MEGLU/DIATRIZO SOD 30 ML BOTTLE PO ONE (02:50)
[2022-11-21] MEDS: SODIUM CHLORIDE 0.9% 1,000 ML IV SCH ×2 (07:48→16:30)
--- NOTE | 2022-11-21 08:00 | XRAY Report ---
PROCEDURE: Chest for Line Placement INDICATIONS: ng tube TECHNIQUE: One view of the chest was acquired. COMPARISON: None. FINDINGS: Surgical changes and devices: Anterior tube tip is below the left hemidiaphragm is seen in the expec valerie location of stomach lumen. Left chest wall Port-A-Cath tip is in SVC.. Lungs and pleura: No pleural effusions or pneumothorax. Lungs are clear. Mediastinum: Mediastinal contours appear normal. Heart size is normal. Bones and chest wall: No suspicious bony lesions. Overlying soft tissues appear unremarkable. IMPRESSION: NG tube tip is in the region of the mid stomach lumen. No acute cardiopulmonary pathology. Findings are concordant with preliminary interpretation provided by [facility]. Reviewed by: Abner Peña MD on 11/21/2022 7:59 AM PDT Approved by: Abner Peña MD on 11/21/2022 7:59 AM PDT Station ID: [id number]
--- NOTE | 2022-11-21 08:29 | CONSULTATION NOTE ---
Referring Provider Name of Referring Provider:: ED (Ozzie) Consult Date: 11/21/22 Chief Complaint - Chief Complaint Chief Complaint: abdominal pain History of Present Illness - Admitted From Admitted From:: ED - History Obtained From Records Reviewed: yes History obtained from: patient, chart, family - History of Present Illness HPI Comment/Other: This is a very pleasant 52 y/o M with stage IV colon cancer diagnosed in 2020, s/p colostomy, s/p left hepatectomy, complicated by tumor progression at colostomy site for which he was recently evaluated at and felt not to be a good surgical candidate at this time. He is on Stivarga and has had multiple other chemotherapies during his disease course. He had a recent pneumonia, treated with antibiotics (completed) and steroids (still taking); he denies chest pain and shortness of breath at this time. Yesterday evening, he noted an increase in abdominal pain and decreased colostomy output, prompting him to come to the ED. He denies nausea or vomiting but endorses decreased appetite over the last day. He denies history of previous bowel obstruction. He notes he has a right groin hernia which sometimes is quite tender, though it is not tender at this time, and he has been told he has gallstones in the past. Last night, af ter his CT, the patient reports passing a small amount of BRBPR which is abnormal for him; he usually has mucous stools 1-2 times per week. At the time of my exam, he notes diffuse abdominal pain (5/10), and denies nausea. History - Past Medical History Cardiovascular: reports: Hypertension, High cholesterol Respiratory: reports: None Neuro: reports: None Endocrine/Autoimmune: reports: None GI: reports: Other (stage IV colon ca) : reports: None HEENT: reports: None Psych: reports: ADD/ADHD Musculoskeletal: reports: None Derm: reports: None MRSA Hx?: No - Past Surgical History General: reports: Bowel surgery (colostomy), Colonoscopy, Other (left hepatectomy) Ortho: reports: Other Derm: reports: Other - Family & Social History Family History Comment/Other: His mother was diagnosed with colon cancer and needed a colon resection. He believes his younger brother may also have a history of colon cancer. He has a brother with a history of heart disease who recently underwent CABG. Both of his grandfathers also had a history of heart disease. Living Situation: With spouse/s.o. Social History Notes: He lives at home with his . He does not currently work. He smoked about half a pack a day since the age of 9. He rarely drinks alcohol. - POLST Patient has POLST: No Meds/Allgy - Home Medications Home Medications: Ambulatory Orders Medication Instructions Recorded Confirmed Ondansetron Odt [Zofran Odt] 4 mg PO PRN PRN 02/24/22 11/21/22 oxyCODONE [Roxicodone] 5 mg PO Q6H PRN 15 Days #180 tablet 08/23/22 11/21/22 Regorafenib [Stivarga] 160 mg PO DAILY 08/25/22 11/21/22 Methylphenidate [Ritalin] 10 mg PO DAILY 11/21/22 11/21/22 Oxycodone HCl [Oxycodone HCl ER] 10 mg PO BID 11/21/22 11/21/22 Pregabalin [Lyrica] 25 mg PO BID 11/21/22 11/21/22 dexAMETHasone [Decadron] 2 mg PO DAILY 11/21/22 11/21/22 lisinopriL [Lisinopril] 10 mg PO DAILY 11/21/22 11/21/22 - Allergies Allergies/Adverse Reactions: Allergies Allergy/AdvReac Type Severity Reaction Status Date / Time No Known Drug Allergies Allergy Verified 11/20/22 21:57 Review of Systems - Constitutional Constitutional: reports: Other (A complete 10 point review of symptoms is otherwise negative except for that noted in HPI and PMH.) Exam - Vital Signs Vital Signs: Vital Signs x48h Temp Pulse Resp BP Pulse Ox O2 Flow Rate 11/21/22 07:44 36.7 C 98 12 136/90 H 98 11/21/22 07:15 99 11 L 126/78 98 2 11/21/22 06:16 97 12 119/85 H 97 11/21/22 04:12 94 12 136/97 H 97 11/21/22 01:05 92 16 149/86 H 100 2 11/21/22 00:09 89 14 154/89 H 100 - Physical Exam General Appearance: positive: No acute distress, Alert Eyes Bilateral: positive: Other (NG in place with 300mL non bilious fluid in canister since placement) ENT: positive: Dry mucous membranes Neck: positive: Trachea midline Respiratory: positive: No respiratory distress, Other (on RA) Cardiovascular: positive: Regular rate & rhythm Peripheral Pulses: positive: 2+ Abdomen: positive: No distention (minimal), Tenderness (diffuse, moderate), Guarding (voluntary, diffuse), Other (colostomy retracted, appliance in place with small amount of liquid stool in bag. Colostomy pink.). negative: Rebound Skin: positive: No rash Extremities: positive: Nml appearance Neurologic/Psychiatric: positive: Oriented x3 Comments/Other: CT abd/pelvis demonstrates ileus vs SBO. No free air, small amount of mesenteric edema. I personally reviewed the images and report from the above study. Conclusion and Plan - Lab Results Laboratory Results 11/21/22 02:47: Lactic Acid 2.2 11/20/22 22:45: Sodium 136, Potassium 3.5, Chloride 103, Carbon Dioxide 25, Anion Gap 8.0, BUN 19, Creatinine 0.5 L, Estimated GFR (MDRD) 175, Glucose 147 H, Calcium 8.1 L, Total Bilirubin 1.0, AST 43 H, ALT 44, Alkaline Phosphatase 144 H, Total Protein 7.2, Albumin 2.8 L, Globulin 4.4 H, Albumin/Globulin Ratio 0.6 L, Lipase 47 11/20/22 22:45: WBC 21.8 H, RBC 4.28 L, Hgb 13.0 L, Hct 41.3 L, MCV 96.5 H, MCH 30.4, MCHC 31.5 L, RDW 16.4 H, Plt Count 173, MPV 10.4, Neut # (Auto) Not Reportable, Lymph # (Auto) Not Reportable, Crane # (Auto) Not Reportable, Eos # (Auto) Not Reportable, Baso # (Auto) Not Reportable, Absolute Nucleated RBC Not Reportable, Total Counted 100, Band Neuts % (Manual) 2, Abnorm Lymph % (Manual) 0, Nucleated RBC % Not Reportable, Neutrophils # (Manual) 17.0 H, Lymphocytes # (Manual) 4.1 H, Monocytes # (Manual) 0.7, Eosinophils # (Manual) 0.0, Basophils # (Manual) 0.0, Differential Comment MANUAL DIFFERENTIAL, Manual Slide Review Indicated, WBC Morphology NORMAL APPEARANCE, Platelet Estimate NORMAL (130- 450,000), Platelet Morphology NORMAL APPEARANCE, RBC Morph Micro Appear NORMAL APPEARANCE - Diagnostic Imaging Results Diagnostic Imaging Results: positive: Final report reviewed - Consultation Note Consultation Note: 52 y/o M with: 1. Small bowel obstruction vs ileus - NG in place. Will allow to decompress this AM. - If patient is feeling better, will order SBFT this PM, otherwise will get this study tomorrow AM. - Patient has R inguinal hernia, reduced currently, may have contributed to CT findings - Abdomen benign but tender. I am hopeful the patient's symptoms will improve with conservative management. I discussed with the patient and his at bedside that he is a high risk surgical candidate. - Keep NPO with ice chips for comfort - will order mIVF, recheck lab this AM 2. leukocytosis - likely 2/2 current steroids - CXR clear 3. stage IV colon ca - currently on chemo - patient has complex wound care needs. Patient working with HH to obtain wound care supplies. 4. chronic pain - followed by Jennifer Pereira of palliative care, who is aware patient is in the hospital - recommend dilaudid [employer]INES for pain control while NPO. Plan to restart home meds when tolerating PO. 5. HTN, HPL, ADD - as per primary. Recommend holding home meds until able to tolerate PO. Thank you for consulting me in the care of this gentleman. I will continue to follow closely.
[2022-11-21 09:44] LABS: BASOPHILS % (AUTO) 0.3 %; HCT - HEMATOCRIT 38.8 % (42.0-52.0); HGB - HEMOGLOBIN 12.5 g/dL (14.0-18.0); LYMPHOCYTES % (AUTO) 9.8 %; MEAN CORPUSCULAR HEMOGLOBIN 30.9 pg (27.0-31.0); MEAN CORPUSCULAR HGB CONC 32.2 g/dL (32.0-36.0); MEAN PLATELET VOLUME 9.8 fL (7.4-11.4); NEUTROPHILS % (AUTO) 83.4 %; PLT - PLATELET COUNT 128 10^3/uL (130-450); RED BLOOD COUNT 4.04 10^6/uL (4.70-6.10); RED CELL DISTRIBUTION WIDTH 16.8 % (12.0-15.0); WHITE BLOOD COUNT 31.4 x10^3/uL (4.8-10.8)
[2022-11-21 09:46] LABS: ABNORMAL LYMPHS % (MANUAL) 0 %
[2022-11-21 09:52] LABS: CREATININE 0.5 mg/dL (0.6-1.2); POTASSIUM 3.8 mmol/L (3.5-5.0)
[2022-11-21 10:06] LABS: BAND NEUTROPHILS % (MANUAL) 10 %; DIFFERENTIAL COMMENT MANUAL DIFFERENTIAL; LYMPHOCYTES # (MANUAL) 1.6 10^3/uL (1.5-3.5); LYMPHOCYTES % (MANUAL) 3 %; MONOCYTES # (MANUAL) 0.9 10^3/uL (0.0-1.0); MYELOCYTES % (MANUAL) 1 %; NEUTROPHILS # (MANUAL) 28.6 10^3/uL (1.5-6.6); REACTIVE LYMPHS % (MANUAL) 2 %
[2022-11-21] MEDS: HYDROmorphone 1 MG/ML CARPUJECT IVP PRN ×3 (11:23→15:34)
[2022-11-21] MEDS ORDERED: PROCHLORPERAZINE 10 MG/2 ML VIAL IVP PRN (14:41)
[2022-11-21] MEDS ORDERED: SODIUM CHLORIDE FLUSH 0.9% 10 ML SYRINGE IVP PRN (14:41)
[2022-11-21] MEDS ORDERED: ONDANSETRON ODT 4 MG TABLET TL PRN (14:41)
[2022-11-21] MEDS ORDERED: ONDANSETRON 4 MG/2 ML VIAL IVP PRN (14:41)
[2022-11-21] MEDS ORDERED: MORPHINE 2 MG/ML CARPUJECT IVP PRN (14:41)
[2022-11-21] MEDS ORDERED: HYDROmorphone PCA 20MG/100ML IV PRN (14:53)
--- NOTE | 2022-11-21 14:58 | PHARMACY PROGRESS NOTE ---
- Best Possible Medication History Admit Date and Time: 11/21/22 1453 Processed by: Pharmacy Medication History completed: Yes Patient Interview: Completed Secondary Source(s): Pharmacy records As the person ultimately responsible for medication therapy, providers are able to order a medication from an existing home medication list in [facility] via the "Reconcile Routine" prior to Confirmation of that medication by computer support specialist. Such practice is discouraged except when the physician, in their clinical judgment, deems that a medical need exists for a medication without regard to previous use.
[2022-11-21] MEDS ORDERED: METOPROLOL 5 MG/5 ML VIAL IVP PRN (15:06)
--- NOTE | 2022-11-21 15:45 | Ultrasound Report ---
PROCEDURE: Abdomen Limited INDICATIONS: leukocytosis, h/o gallstones, r/o cholecystitis TECHNIQUE: Real-time focused scanning was performed of the abdomen, with image documentation. COMPARISONS: Same day CT abdomen pelvis. FINDINGS: Liver: Prior partial resection. Visualized portions are unremarkable. Gallbladder: Diffuse gallbladder wall thickening. Gallbladder sludge. No distention. Biliary ducts: Intrahepatic bile ducts are non-dilated. Extrahepatic bile duct not visualized. Pancreas: Not well visualized due to overlying bowel gas. Right kidney: Not visualized. Aorta: Visualized aorta is normal in caliber at less than 3 cm. IVC: Intrahepatic inferior vena cava is patent. Miscellaneous: Trace free fluid adjacent to the gallbladder. IMPRESSION: Color sludge. Diffuse wall thickening without hydrops. Findings do not suggest acute cholecystitis. D iffuse wall thickening could be due to underlying liver disease or cardiac disease. Reviewed by: River Figueroa on 11/21/2022 3:43 PM PDT Approved by: River Figueroa on 11/21/2022 3:43 PM PDT Station ID: [id number]
--- NOTE | 2022-11-21 17:24 | HISTORY & PHYSICAL EXAMINATION ---
Chief Complaint - Chief Complaint Chief Complaint: abdominal pain, intractable History of Present Illness - Admitted From Admitted From:: home with EMS - History Obtained From Records Reviewed: [facility] History obtained from: patient and Dr. Nelson Exam Limitations: none - History of Present Illness HPI Comment/Other: This is a gentleman who has colon cancer that presented his abdominal pain with nausea and vomiting in February 2021. It progressed to the point where he was unable to keep anything down he was admitted to the hospital February 20. He had a colonic mass causing partial bowel obstruction on the admitting CT. In February 23 he underwent an laparoscopic assisted loop colostomy with liver biopsy, adhesiolysis. An open umbilical hernia repair and laparoscopic splenic flexure mobilization were also done. He is now under the care of the [facility] oncology. Treatment has consisted of Avastin and FOLFOX, then FOLFIRI, then Stivarga which started the beginning of October of this year. He is considered on third line therapy. He said he is only finished 1 cycle between the beginning of October and November 01, 2022. Complications included tumor progression with lung and liver involvement. It also involves his ostomy starting in December 2021. In between his FOLFIRI treatments he did have a left hepatectomy in November 2021. With that admission he had some bilateral groin swelling. He is not a surgical candidate by their opinion. He would require abdominal wall reconstruction. And radiation oncology notes concerns that their treatment will cause obstruction. Stent placement could in theory be an option but no evidence obstruction by imaging or symptoms and would unlikely to help with peristomal discomfort. He is referred for second opinion at [facility]. oxaliplatin was added to the FOLFIRI in April 2022 due to growth of the peristomal abdominal wall lesion. Dr. Lee does feel that he is responding to the Stivarga. At the beginning of treatment, the stomal tumor was about 9 cm. By the end of October the tumor had regressed to the point that the colostomy has now retracted. With all of these surgical procedures and treatments, he has been miserable with nausea, intermittent vomiting. But really did not start having abdominal pain until the involution of his colostomy. He said that ever since then he has had waxing and waning abdominal pain. It is diffuse. But it involves mainly the right and left lower quadrants, over the bladder, and occasionally in the right upper quadrant. He was seen in the emergency room November 02 for having hypoxemia in the MAC with his Oncology visit. NO PE was seen but he had ground glass opacities adn progression of his pulmonary nodule. Opinion by surgery was given regarding abdominal pain. The possibility that he could have an infected gallbladder. Between the November 02 visit and today, the patient has been seen in the oncology clinic. It is the November [address] Lee feels that the immune modulating medication is working at retracting the tumor at the stomal site. The patient says that he had a probably 5 good days. He was not perfect but he was better with his abdominal pain. Still having anorexia. Then on November 20, sudden horrific lower abdominal pain started. He tried to sit down on the toilet for urination because he has had constant urgency, frequency, right groin pain. When he sat down on the toilet he had a bowel movement. He knows he is not supposed to have one but it felt like his he was having diarrhea and a copious amount of blood came out his rectum. He continues to have urgency, frequency, urinary retention. In the emergency room November 20 he has been afebrile. He was not tachycardic until transfer from ER to [facility]. He says that the pain waxes and wanes and sometimes he cries out with it because it so agonizing. Even though he has a little bit of right upper quadrant pain, most of the pain is centered around his right groin, bladder, and right lower quadrant. He does not have an elevated white cell count. CT of the abdomen shows dilated descending bowel, dilated stomach. General surgery is planning on doing a small bowel follow-through with Gastrografin tomorrow. Although the ER doctor felt that the patient was needing admission on November 20, we did not have any beds available till this afternoon today when I am admitting the patient. General surgery has already seen the patient. History - Past Medical History Cardiovascular: reports: Hypertension, High cholesterol Respiratory: reports: None Neuro: reports: None Endocrine/Autoimmune: reports: None GI: reports: Other : reports: None HEENT: reports: None Psych: reports: ADD/ADHD Musculoskeletal: reports: None Derm: reports: None MRSA Hx?: No - Past Surgical History General: reports: Bowel surgery, Colonoscopy, Other Ortho: reports: Other Derm: reports: Other - Family & Social History Family History Comment/Other: His mother was diagnosed with colon cancer and ne eded a colon resection. He believes his younger brother may also have a history of colon cancer. He has a brother with a history of heart disease who recently underwent CABG. Both of his grandfathers also had a history of heart disease. Living Situation: With spouse/s.o. Social History Notes: He lives at home with his . He does not currently work. He smoked about half a pack a day since the age of 9. He rarely drinks alcohol. - POLST Patient has POLST: No POLST Status: Full Code Meds/Allgy - Home Medications Home Medications: Ambulatory Orders Medication Instructions Recorded Confirmed Ondansetron Odt [Zofran Odt] 4 mg PO PRN PRN 02/24/22 11/21/22 oxyCODONE [Roxicodone] 5 mg PO Q6H PRN 15 Days #180 tablet 08/23/22 11/21/22 Regorafenib [Stivarga] 160 mg PO DAILY 08/25/22 11/21/22 Methylphenidate [Ritalin] 10 mg PO DAILY 11/21/22 11/21/22 Multivitamin with Minerals 1 tab PO DAILY 11/21/22 11/21/22 [Multivitamins with Minerals] Nystatin [Mycostatin] 5 ml ORAL QID 11/21/22 11/21/22 Oxycodone HCl [Oxycodone HCl ER] 10 mg PO BID 11/21/22 11/21/22 Pregabalin [Lyrica] 25 mg PO BID 11/21/22 11/21/22 dexAMETHasone [Decadron] 2 mg PO DAILY 11/21/22 11/21/22 lisinopriL [Lisinopril] 10 mg PO DAILY 11/21/22 11/21/22 - Allergies Allergies/Adverse Reactions: Allergies Allergy/AdvReac Type Severity Reaction Status Date / Time No Known Drug Allergies Allergy Verified 11/20/22 21:57 Review of Systems - Constitutional Constitutional: reports: Fatigue, Malaise, Weakness, Poor appetite, Weight loss. denies: Fever, Chills - Eyes Eyes: denies: Pain, Irritation, Amaurosis, Blurred vision - Ears, Nose & Throat Ears, Nose & Throat: denies: Ear pain, Hearing loss, Hearing aids, Tinnitus, Vertigo, Nasal pain - Cardiovascular Cariovascular: reports: Chest pain, Decr. exercise tolerance. denies: Irregular heart rate, Palpitations, Exertional dyspnea - Respiratory Respiratory: denies: Cough, Sputum production, Wheezing, SOB at rest, SOB with exertion - Gastrointestinal Gastrointestinal: reports: Abdominal pain, Abdominal distention, Change in bowel habits (Last stool output from his ostomy, minimal flatus. 1 episode of blood from his rectum) - Genitourinary Genitourinary: reports: Dysuria, Frequency, Urgency, Nocturia - Musculoskeletal Musculoskeletal: denies: Muscle pain, Back pain, Joint pain - Integumentary Integumentary: denies: Rash, Pruritis, Lesions, Dryness - Neurological Neurological: reports: General weakness, Dizziness. denies: Focal weakness, Headache, Pre-existing deficit, Abnormal gait - Psychiatric Psychiatric: reports: Depression, Anxiety. denies: Suicidal - Endocrine Endocrine: denies: Polyuria, Polydypsia, Polyphagia - Hematologic/Lymphatic Hematologic/Lymphatic: reports: Anemia, Bruising, Lymphadenopathy. denies: Bleeding tendencies Prior Level of Functionality: Independent with activities of daily living. Does need help from his when he gets really tired during chemotherapy regimens Exam - Vital Signs Reviewed Vital Signs: Yes Vital Signs: Vital Signs x48h Temp Pulse Pulse Resp BP BP Pulse Ox 11/21/22 16:28 11/21/22 16:26 37.3 C 128 H 18 120/93 H 96 11/21/22 15:36 114 H 22 136/94 H 95 11/21/22 15:20 120 H 22 124/92 H 94 11/21/22 13:25 115 H 20 160/96 H 94 11/21/22 13:03 113 H 20 156/112 H 95 11/21/22 11:08 97 18 158/101 H 98 O2 Flow Rate 11/21/22 16:28 2 11/21/22 16:26 2 11/21/22 15:36 2 11/21/22 15:20 11/21/22 13:25 2 11/21/22 13:03 2 11/21/22 11:08 2 - Physical Exam General Appearance: positive: Alert, Moderate distress (He occasionally cries out when spasms of pain hit his lower quadrants, his bladder) Eyes Bilateral: positive: PERRL, EOMI ENT: positive: Dry mucous membranes (Very dry lips, keeps on trying to lick his lips) Neck: positive: No JVD. negative: Stiff neck Respiratory: positive: No respiratory distress, Rales. negative: Wheezes, Rhonchi Cardiovascular: positive: Regular rate & rhythm, Tachycardia Peripheral Pulses: positive: 1+ Abdomen: positive: Guarding, Rebound, Other (abdomen is not rigid. But just touching his right lower quadrant, over his groin, causes the guarding. I am not feeling a mass there. Bladder is spasming and he keeps on feeling like he has to urinate even the Abraham is in place. Middle of the abdomen is not nearly as tender, mild RUQ epigastric) Skin: positive: Diaphoresis, Pallor Extremities: positive: Non-tender, Full ROM, Other (Calves, shins, ankles and feet are ice cold. Hands warm. Face diaphoretic) Neurologic/Psychiatric: positive: Oriented x3, CN's nml (2-12), Motor nml Conclusion/Plan - Problem List (1) Intractable generalized abdominal pain Conclusion/Plan: Initially started as pain in part of the ostomy, then right upper quadrant. Over the last 2 to 3 weeks has been bilateral lower quadrant pain. He relates it to some of the groin swelling he had when he had his hepatectomy. But at that time his groin swelling and pain resolved back in November of last year. With this current episode in October of this year, the pain is getting worse. More centered around the right side than the left side. He almost does not want to let me touch his right lower quadrant. CAT scan indicates some type of functional ileus. Dilated bowel but no true obstruction. He then describes of bloody bowel movement in a patient who has an ileostomy. My suspicion is that he could have a fistula, or necrotic inguinal node/tumor, or caking of omentum and bowel that we cannot quite see on CT yet. Plan: Inpatient status Continue general surgical consultation. I will discussed the case with Dr. Nelson especially after the small bowel follow-through. Start WARD AIDE for pain management Compazine, Zofran for nausea Get the old records from to see if they have any comments on the bilateral groin swelling around the time of his hepatectomy (2) Colon carcinoma metastatic to multiple sites Conclusion/Plan: As per notes from the [facility] oncology clinic, he is currently receiving immune modulating therapy with some response on the basis of involution of ostomy tumor. He is due to get repeat staging lung CT in December. Side effects of the regorafenib were reviewed. Most of them consist (when they affect the GI tract) anorexia, diarrhea, GI pain, increased serum lipase, nausea, stomatitis and vomiting. He has nausea, and lipase is normal. If this medication is working, could tumor necrosis be the cause of all his problems? (3) Hyperglycemia Conclusion/Plan: Intermittent, present for over a year. Last glycosylated hemoglobin was 6.2% in February 2022. Plan: Continue to monitor while here. If persistent we will recheck A1c (4) Leukocytosis Conclusion/Plan: Associated with his abdominal pain, and he is now developing tachycardia. Feet are quite cold. Plan: Single agent Zosyn for now. He does not have free air, no evidence of diverticulitis, cholecystitis, but he is immunocompromised and the tachycardia is new. Qualifiers: Leukocytosis type: bandemia Qualified Code(s): D72.825 - Bandemia - Lab Results Lab results reviewed: Yes Fish Bones: 11/21/22 09:36 11/21/22 09:36 - Diagnostic Imaging Results Diagnostic Imaging Results: positive: Final report reviewed
[2022-11-21] MEDS: PIPERACILLIN/TAZOBACTAM 3.375 GM in SODIUM CHLORIDE 0.9% MINIBAG 100 ML IV SCH (18:11)
[2022-11-21] MEDS: SODIUM CHLORIDE FLUSH 0.9% 10 ML SYRINGE IVP SCH ×2 (18:11→23:58)
[2022-11-22] MEDS: SODIUM CHLORIDE 0.9% 1,000 ML IV SCH ×3 (01:24→19:58)
[2022-11-22] MEDS: PIPERACILLIN/TAZOBACTAM 3.375 GM in SODIUM CHLORIDE 0.9% MINIBAG 100 ML IV SCH ×6 (05:30→23:48)
[2022-11-22 05:52] LABS: BASOPHILS % (AUTO) 0.8 %; EOSINOPHILS % (AUTO) 0.5 %; HCT - HEMATOCRIT 43.8 % (42.0-52.0); MEAN CORPUSCULAR HEMOGLOBIN 30.7 pg (27.0-31.0); MEAN CORPUSCULAR VOLUME 96.1 fL (80.0-94.0); MEAN PLATELET VOLUME 11.2 fL (7.4-11.4); MONOCYTES % (AUTO) 2.7 %; NEUTROPHILS % (AUTO) 89.5 %; PLT - PLATELET COUNT 142 10^3/uL (130-450); RED BLOOD COUNT 4.56 10^6/uL (4.70-6.10); RED CELL DISTRIBUTION WIDTH 17.4 % (12.0-15.0); WHITE BLOOD COUNT 21.2 x10^3/uL (4.8-10.8)
[2022-11-22 05:54] LABS: ABNORMAL LYMPHS % (MANUAL) 0 %
[2022-11-22 06:07] LABS: BAND NEUTROPHILS % (MANUAL) 14 %; DIFFERENTIAL COMMENT MANUAL DIFFERENTIAL; LYMPHOCYTES # (MANUAL) 1.7 10^3/uL (1.5-3.5); LYMPHOCYTES % (MANUAL) 8 %; METAMYELOCYTES % (MANUAL) 3 %; MONOCYTES # (MANUAL) 1.1 10^3/uL (0.0-1.0); NEUTROPHILS # (MANUAL) 17.8 10^3/uL (1.5-6.6); PLATELET ESTIMATE, MANUAL NORMAL (130-450,000) (NORMAL); PLATELET MORPHOLOGY NORMAL APPEARANCE (NORMAL); RBC MORPHOLOGY (MULTIPLE) NORMAL APPEARANCE (NORMAL); WBC MORPHOLOGY (MULTIPLE) NORMAL APPEARANCE (NORMAL)
[2022-11-22 06:08] LABS: CALCIUM 7.8 mg/dL (8.5-10.3); CREATININE 0.9 mg/dL (0.6-1.2); POTASSIUM 3.7 mmol/L (3.5-5.0)
[2022-11-22] MEDS ORDERED: DIATR MEGLU/DIATRIZOATE SODIUM 120 ML BOTTLE ONE (07:20)
[2022-11-22] MEDS: SODIUM CHLORIDE FLUSH 0.9% 10 ML SYRINGE IVP SCH ×3 (09:32→23:47)
[2022-11-22] MEDS: ENOXAPARIN 40 MG/0.4 ML SYRINGE SUBQ SCH (10:10)
--- NOTE | 2022-11-22 12:37 | PROVIDER PROGRESS NOTE ---
Subjective - Prog Note Date Prog Note Date: 11/22/22 Prog Note Time: 12:37 - Subjective Subjective: Overall the intensity of the pain is not as severe as it was yesterday. But he is still has flashes of excruciating right lower quadrant stabbing pain. No rectal bleeding as he described yesterday. There has been no fevers, chills. He is currently undergoing a small bowel follow-through. At 15 minutes the Gastrografin was in the stomach, and at 2 hours it still in his stomach. To is not moving through. There is no free air. General surgery and I have discussed the case His palliative care provider came by to see him. 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 and he needs to resume his nystatin swish and spit Current Medications - Current Medications Current Medications: Active Medications Enoxaparin Sodium (Enoxaparin 40 Mg/0.4 Ml Syringe) 40 mg SUBQ DAILY [facility] Last Admin: 11/22/22 10:10 Dose: 40 mg Hydromorphone HCl (Hydromorphone Information Services Manager 20mg/100ml) 20 mg IV PRN PRN; Protocol PRN Reason: PAIN >8 Last Admin: 11/21/22 17:38 Dose: 20 mg Hydromorphone HCl (Hydromorphone 0.5 Mg/0.5 Ml Syringe) 0.5 mg IVP Q1H PRN PRN Reason: Breakthrough Pain Sodium Chloride (Normal Saline 0.9%) 1,000 mls @ 125 mls/hr IV .Q8H [facility] Last Admin: 11/22/22 10:23 Dose: 125 mls/hr Piperacillin Sod/Tazobactam (Sod 3.375 gm/ Sodium Chloride) 100 mls @ 200 mls/hr IV Q6H [facility] Last Admin: 11/22/22 11:52 Dose: 200 mls/hr Metoprolol Tartrate (Metoprolol 5 Mg/5 Ml Vial) 5 mg IVP Q6H PRN PRN Reason: Hypertensive Emergency Ondansetron HCl (Ondansetron Odt 4 Mg Tablet) 4 mg TL Q6HR PRN PRN Reason: Nausea / Vomiting Ondansetron HCl (Ondansetron 4 Mg/2 Ml Vial) 4 mg IVP Q6HR PRN PRN Reason: Nausea / Vomiting Prochlorperazine Edisylate (Prochlorperazine 10 Mg/2 Ml Vial) 10 mg IVP Q6HR PRN PRN Reason: Nausea / Vomiting Sodium Chloride (Sodium Chloride Flush 0.9% 10 Ml Syringe) 10 ml IVP PRN PRN PRN Reason: NEEDED PER PROVIDER ORDERS Sodium Chloride (Sodium Chloride Flush 0.9% 10 Ml Syringe) 10 ml IVP 0100,0900,1700 HARMEET Last Admin: 11/22/22 09:32 Dose: Not Given Ondansetron Odt [Zofran Odt] 4 mg PO PRN PRN 02/24/22 Regorafenib [Stivarga] 160 mg PO DAILY 08/25/22 Methylphenidate [Ritalin] 10 mg PO DAILY 11/21/22 Multivitamin with Minerals [Multivitamins with Minerals] 1 tab PO DAILY 11/21/22 Nystatin [Mycostatin] 5 ml ORAL QID 11/21/22 Oxycodone HCl [Oxycodone HCl ER] 10 mg PO BID 11/21/22 Pregabalin [Lyrica] 25 mg PO BID 11/21/22 dexAMETHasone [Decadron] 2 mg PO DAILY 11/21/22 lisinopriL [Lisinopril] 10 mg PO DAILY 11/21/22 Objective - Vital Signs/Intake & Output Reviewed Vital Signs: Yes Vital Signs: Vital Signs x48h Temp Pulse Resp BP Pulse Ox O2 Flow Rate 11/22/22 12:05 36.6 C 110 H 18 96/62 91 L 2 11/22/22 09:00 16 11/22/22 08:21 36.5 C 109 H 18 104/67 92 2 11/22/22 08:00 16 11/22/22 07:00 2 11/22/22 06:39 16 11/22/22 06:00 16 11/22/22 05:00 36.6 C 100 16 106/64 95 2 Intake & Output: Intake & Output 11/19/22 11/20/22 11/21/22 11/22/22 23:59 23:59 23:59 23:59 Intake Total 2806.667 1613.333 Output Total 1700 175 Balance 4774.960 5020.333 - Objective General Appearance: positive: Moderate distress, Lethargic (He is on the WORK FROM HOME, speech is slightly slurred, he is lethargic but in the midst of his sedation, he still has flashes of that terrible pain. Grayish skin tone. Not as pink as he was yesterday) Eyes Bilateral: positive: PERRL, EOMI ENT: positive: Dry mucous membranes (Very dry oral mucosa, lips are cracked) Neck: positive: No JVD. negative: Lymphadenopathy (R), Lymphadenopathy (L), Stiff neck Respiratory: positive: No respiratory distress. negative: Wheezes, Rales, Rhonchi Cardiovascular: positive: Regular rate & rhythm, Tachycardia Abdomen: positive: Other (reagent tender. Will not let me touch his abdomen because it hurts so much in the right lower quadrant. No bowel sounds audible. Just my stethoscope on his stomach caused him to wince with pain. Looking at the ostomy, it has involuted and at 4:00 to 6:00 he still has intact pink stoma. There is n) Skin: positive: Dry, Pallor Extremities: positive: Full ROM, No pedal edema Neurologic/Psychiatric: positive: Oriented x3, CN's nml (2-12), Motor nml - Lab Results Fish Bones: 11/22/22 05:44 11/22/22 05:44 Other Labs: Lab Results x24hrs 11/22/22 11/22/22 Range/Units 05:44 05:44 WBC 21.2 H (4.8-10.8) x10^3/uL RBC 4.56 L (4.70-6.10) 10^6/uL Hgb 14.0 (14.0-18.0) g/dL Hct 43.8 (42.0-52.0) % MCV 96.1 H (80.0-94.0) fL MCH 30.7 (27.0-31.0) pg MCHC 32.0 (32.0-36.0) g/dL RDW 17.4 H (12.0-15.0) % Plt Count 142 (130-450) 10^3/uL MPV 11.2 (7.4-11.4) fL Neut # (Auto) Not Reportable Lymph # (Auto) Not Reportable Nobles # (Auto) Not Reportable Eos # (Auto) Not Reportable Baso # (Auto) Not Reportable Absolute Nucleated RBC Not Reportable Total Counted 100 Band Neuts % (Manual) 14 H (0 - 10) % Abnorm Lymph % (Manual) 0 % Metamyelocytes % 3 H ( - 0) % Nucleated RBC % Not Reportable Neutrophils # (Manual) 17.8 H (1.5-6.6) 10^3/uL Lymphocytes # (Manual) 1.7 (1.5-3.5) 10^3/uL Monocytes # (Manual) 1.1 H (0.0-1.0) 10^3/uL Eosinophils # (Manual) 0.0 (0-0.7) 10^3/uL Basophils # (Manual) 0.0 (0-0.1) 10^3/uL Differential Comment MANUAL DIFFERENTIAL WBC Morphology NORMAL APPEARANCE (NORMAL) Platelet Estimate NORMAL (130-450,000) (NORMAL) Platelet Morphology NORMAL APPEARANCE (NORMAL) RBC Morph Micro Appear NORMAL APPEARANCE (NORMAL) Sodium 138 (135-145) mmol/L Potassium 3.7 (3.5-5.0) mmol/L Chloride 108 (101-111) mmol/L Carbon Dioxide 20 L (21-32) mmol/L Anion Gap 10.0 (6-13) BUN 32 H (6-20) mg/dL Creatinine 0.9 (0.6-1.2) mg/dL Estimated GFR (MDRD) 89 (>89) Glucose 85 (70-100) mg/dL Calcium 7.8 L (8.5-10.3) mg/dL ABX Reporting Has patient been on IV antibiotics over the past 48 hours?: Yes Assessment/Plan - Problem List (1) Intractable generalized abdominal pain Impression: Initially started as pain in part of the ostomy, then right upper quadrant. Over the last 2 to 3 weeks has been bilateral lower quadrant pain. He relates it to some of the groin swelling he had when he had his hepatectomy. But at that time his groin swelling and pain resolved back in November of last year. With this current episode in October of this year, the pain is getting worse. More centered around the right side than the left side. He almost does not want to let me touch his right lower quadrant. CAT scan indicates some type of functional ileus. Dilated bowel but no true obstruction. He then describes of bloody bowel movement in a patient who has an ileostomy. My suspicion is that he could have a fistula, or necrotic inguinal node/tumor, or caking of omentum and bowel that we cannot quite see on CT yet. I discussed this with general surgery. Right now she says she is not too worried about the rectal bleeding and does not feel this is a fistula yet. But could this be necrotic tumor as he responded to the immune modulating therapy. So far the small bowel follow-through shows no contrast going from the stomach into the small bowel. But we are not seeing true obstruction but more of an ileus. Both of us reviewed the CT scan from yesterday again. We have also following the small bowel follow-through plain films. Patient is still measurable requiring quite a bit of WORK FROM HOME. His blood pressure is coming down, he is tachycardic. Skin color looks terrible. My impression is that he is failing expectant management, antibiotics. Plan: Continue WORK FROM HOME for pain management Continue Compazine, Zofran, as needed. Waiting for the records from General surgery is very worried. We both are. We still do not know the mechanism of his abdominal pain. But in spite of empiric treatment, he is getting worse. We are going to go discussed the case with a another surgeon in the hospital. (2) Colon carcinoma metastatic to multiple sites Conclusion/Plan: As per notes from the [facility] oncology clinic, he is currently receiving immune modulating therapy with some response on the basis of involution of ostomy tumor. He is due to get repeat staging lung CT in December. Side effects of the regorafenib were reviewed. Most of them consist (when they affect the GI tract) anorexia, diarrhea, GI pain, increased serum lipase, nausea, stomatitis and vomiting. He has nausea, and lipase is normal. If this medication is working, could tumor necrosis be the cause of all his problems? He was seen by his palliative care provider today. She reminds me that he does have a POLST form in the chart. He is a DO NOT RESUSCITATE. As such I will change the order. (3) Hyperglycemia Conclusion/Plan: Intermittent, present for over a year. Last glycosylated hemoglobin was 6.2% in February 2022. Glucose this morning was 85. Plan: Continue to monitor while here. No A1c for now (4) Leukocytosis Conclusion/Plan: Associated with his abdominal pain, and he is now developing tachycardia. Feet are quite cold. I started him on single agent Zosyn yesterday evening. Today would be day 1 of therapy that will be completed. In spite of that he is not responding. White cell count is lower at 21.2 from 31.4 yesterday. But his systolic blood pressure has gone from 120 and is gradually going down and is 96 by noon today. Heart rate has been consistently tachycardic since admission. Qualifiers: Leukocytosis type: bandemia Qualified Code(s): D72.825 - Bandemia
[2022-11-22] MEDS: metroNIDAZOLE 500 MG/100 ML 500 MG/100 ML BAG IV SCH ×2 (13:58→21:38)
[2022-11-22 14:36] LABS: BILIRUBIN,URINE NEGATIVE (NEGATIVE); GLUCOSE, URINE (UA) NEGATIVE (NEGATIVE); KETONES,URINE (UA) TRACE mg/dL (NEGATIVE); LEUKOCYTE ESTERASE, URINE NEGATIVE (NEGATIVE); NITRITE,URINE NEGATIVE (NEGATIVE); OCCULT BLOOD,URINE MODERATE (NEGATIVE); PH,URINE 5.5 PH (5.0-7.5); PROTEIN,URINE 30 mg/dL (NEGATIVE); UROBILINOGEN,URINE 0.2 (NORMAL) E.U./dL (NORMAL)
[2022-11-22 14:38] LABS: CLARITY,URINE CLEAR (CLEAR)
[2022-11-22 14:47] LABS: BACTERIA,URINE Moderate /HPF (None Seen); RBC,URINE 0-5 /HPF (0-5); SQUAMOUS EPITHELIAL CELL,UR FEW Squamous (<= Few); WBC,URINE 0-3 /HPF (0-3)
[2022-11-22 14:48] LABS: CASTS, URINE 0-2 Course Granular /LPF
--- NOTE | 2022-11-22 15:09 | DISCHARGE SUMMARY ---
"<Ricardo Mann - Last Filed: 11/23/22 18:48> Discharge Summary Condition at Discharge: Critical Discharge Disposition: [facility] DC/Xfer - HOSPITAL COURSE Hospital Course: Addendum 11/23/22 Earlier today patient was visited by palliative care. After lengthy discussion documented separately and palliative care notes, reviewing the options with the patient and his , they made the difficult decision of transitioning him to comfort care with the plans towards discharging on hospice. As such, request for transfer to [place] was redacted. At this time, patient is discharged to [facility] and it is uncertain if the patient will survive to a discharge home with hospice versus end-of-life care in hospital. Patient's case was discussed with Dr. Harrell, hospice case manager, with assistance greatly appreciated. Hospitalist service team is now signing off. - ALLERGIES Allergies/Adverse Reactions: Allergies Allergy/AdvReac Type Severity Reaction Status Date / Time No Known Drug Allergies Allergy Verified 11/20/22 21:57 - MEDICATIONS Home Medications: Ambulatory Orders Medication Instructions Recorded Confirmed Ondansetron Odt [Zofran Odt] 4 mg PO PRN PRN 02/24/22 11/21/22 oxyCODONE [Roxicodone] 5 mg PO Q6H PRN 15 Days #180 tablet 08/23/22 11/21/22 Regorafenib [Stivarga] 160 mg PO DAILY 08/25/22 11/21/22 Methylphenidate [Ritalin] 10 mg PO DAILY 11/21/22 11/21/22 Multivitamin with Minerals 1 tab PO DAILY 11/21/22 11/21/22 [Multivitamins with Minerals] Nystatin [Mycostatin] 5 ml ORAL QID 11/21/22 11/21/22 Oxycodone HCl [Oxycodone HCl ER] 10 mg PO BID 11/21/22 11/21/22 Pregabalin [Lyrica] 25 mg PO BID 11/21/22 11/21/22 dexAMETHasone [Decadron] 2 mg PO DAILY 11/21/22 11/21/22 lisinopriL [Lisinopril] 10 mg PO DAILY 11/21/22 11/21/22 - LABS Result Diagrams: 11/23/22 05:19 11/23/22 05:19 <Natalia Ramírez - Last Filed: 11/29/22 16:27> Discharge Summary Admit Date: 11/21/22 Discharge Date: 11/23/22 Discharging Provider: Natalia Ramírez MD Primary Care Provider: Berhane Lee MD [facility] Oncology Code Status: Do Not Attempt Resuscitation - DIAGNOSES Discharge Diagnoses with Status of Each Condition: 1. Intractable abdominal pain 2. Colon carcinoma metastatic to multiple sites 3. Hyperglycemia 4. Leukocytosis 5. Ileus, unknown cause - HPI History of Present Illness: This is a gentleman who has colon cancer that presented his abdominal pain with nausea and vomiting in February 2021. It progressed to the point where he was unable to keep anything down he was admitted to the hospital February 20. He had a colonic mass causing partial bowel obstruction on the admitting CT. In February 23 he underwent an laparoscopic assisted loop colostomy with liver biopsy, adhesiolysis. An open umbilical hernia repair and laparoscopic splenic flexure mobilization were also done. He is now under the care of the [facility], [place], operated by [facility], oncology. Treatment has consisted of Avastin and FOLFOX, then FOLFIRI, then Stivarga which started the beginning of October of this year. He is considered on third line therapy. He said he is only finished 1 cycle between the beginning of October and November 01, 2022. Complications included tumor progression with lung and liver involvement. It also involves his ostomy starting in December 2021. In between his FOLFIRI treatments he did have a left hepatectomy in November 2021 at . With that admission he had some bilateral groin swelling. He is not a surgical candidate by their opinion. NOt until he has had enough tumor reduction by chemo or immune modulating therapy. He would require abdominal wall taisha nstruction. And radiation oncology notes concerns that their treatment will cause obstruction thru stricture and scar. Stent placement could in theory be an option but no evidence obstruction by imaging or symptoms and would unlikely to help with peristomal discomfort. He is referred for second opinion at [facility]. oxaliplatin was added to the FOLFIRI in April 2022 due to growth of the peristomal abdominal wall lesion. Dr. Lee does feel that he is responding to the Stivarga. At the beginning of treatment, the stomal tumor was about 9 cm. By the end of October the tumor had regressed to the point that the colostomy has now retracted. With all of these surgical procedures and treatments, he has been miserable with nausea, intermittent vomiting. But really did not start having abdominal pain until the involution of his colostomy with Stivarga. He said that ever since then he has had waxing and waning abdominal pain. It is diffuse. But it involves mainly the right and left lower quadrants, over the bladder, and occasionally in the right upper quadrant. He was seen in the emergency room November 02 for having hypoxemia in the MAC with his Oncology visit. NO PE was seen but he had ground glass opacities adn progression of his pulmonary nodule. Opinion by surgery was given regarding abdominal pain. The possibility that he could have an infected gallbladder. Between the November 02 visit and today, the patient has been seen in the oncology clinic. It is the November [address] Lee feels that the immune modulating medication is working at retracting the tumor at the stomal site. The patient says that he had a probably 5 good days. He was not perfect but he was better with his abdominal pain. Still having anorexia. Then on November 20, sudden horrific lower abdominal pain started. He tried to sit down on the toilet for urination because he has had constant urgency, frequency, right groin pain. When he sat down on the toilet he had a bowel movement. He knows he is not supposed to have one but it felt like his he was having diarrhea and a copious amount of blood came out his rectum. He continues to have urgency, frequency, urinary retention. In the emergency room November 20 he has been afebrile. He was not tachycardic until transfer from ER to [facility]. He says that the pain waxes and wanes and sometimes he cries out with it because it so agonizing. Even though he has a little bit of right upper quadrant pain, most of the pain is centered around his right groin, bladder, and right lower quadrant. He does not have an elevated white cell count. CT of the abdomen shows dilated descending bowel, dilated stomach. General surgery is planning on doing a small bowel follow-through with Gastrografin tomorrow. Although the ER doctor felt that the patient was needing admission on November 20, we did not have any beds available till this afternoon today when I am admitting the patient. General surgery has already seen the patient. History - Past Medical History Cardiovascular: reports: Hypertension, High cholesterol Respiratory: reports: None Neuro: reports: None Endocrine/Autoimmune: reports: None GI: reports: Other : reports: None HEENT: reports: None Psych: reports: ADD/ADHD Musculoskeletal: reports: None Derm: reports: None MRSA Hx?: No - Past Surgical History General: reports: Bowel surgery, Colonoscopy, Other Ortho: reports: Other Derm: reports: Other - CONSULTS | PROCEDURES Consultations: General surgery , Palliative Care Procedures: Abdomen pelvis CT has his previous left hepatectomy. No focal liver lesions now. Gallbladder and biliary tree appear normal. Spleen is unremarkable. He has a left abdominal wall colostomy. Cecum is prominent. Stomach is distended. Prominent loops of small bowel. Edema adjacent to the small bowel in the right lower quadrant. There is a left groin node that is 1.8 cm. Unchanged. Chest x-ray has an NG tube in the mid stomach. No acute cardiopulmonary pathology. Abdominal ultrasound with diffuse gallbladder wall thickening, gallbladder sludge, no distention. He is in the middle of doing a small bowel follow-through with Gastrografin. The film at 15 minutes and 2 hours shows no movement of the Gastrografin. Stomach is distended but no dye beyond stomach. This is a preliminary report. Final report pending at the time of discharge. - HOSPITAL COURSE Hospital Course: The patient explains that his abdominal pain really did not start until the same time his new immune modulating therapy started. Between general surgery and myself with postulated whether he has a possible tumor necrosis with fistula for developing causing rectal bleeding, or tumor necrosis causing pain in and of itself, or is his gallbladder causing right upper quadrant pain. However pain over the course of his stay from admitting to 24 hours later, worsened. Pain is right upper quadrant, right lower quadrant, left mid abdomen. By the second day of admission, in spite of antibiotics, his pain is worse. He now has peritoneal findings. He has had no bowel sounds. Nothing in the ostomy bag. A urinalysis was done because of bladder spasm and he has proteinuria, hematuria, few squamous cells and moderate bacteria. Because of the squamous cells culture is not indicated. General surgery discussed the case at length with another general surgery colleague. They in turn discussed the case with the patient's oncologist, Dr. Berhane Lee, and while surgery i with an exploratory laparotomy is probably not an option for this gentleman, he could be a candidate for percutaneous staging of infected gallbladder. we are all puzzled by the source of this man's pain. At moments it is pinpoint, and at other moments is generalized. On 11/22 he started to drop his pressure, became tachycardic over the course of the day. Pain was being managed by HAND PROFILER pump. Antibiotics in the form of Zosyn were started 11/21 and Flagyl was started the morning of 11/22. His oncologist from the [facility], [place], operated by [facility], Dr. Berhane eLe, feels that the patient would benefit from transfer to a higher level of care. Coordination of his oncologic treatment. Interventional radiology is available there and not here. After discussing with the transfer center at [facility], the patient was excepted by the relief salesperson there would be understanding that oncology would be consulting. Highly unlikely that general surgery would operate. He was also seen by his palliative care provider. He has been followed by palliative care for a few visits in the outpatient setting. He is a DO NOT RESUSCITATE and has a POLST in the chart. He was asked today if he really wanted to move forward with treatment. He stated he did. While he is willing to be DO NOT RESUSCITATE, he still wants to move forward with treatment options since he is doing this mainly for his family and his . Palliative critical care transport nurse states that the patient has known Caridad stomatitis and asked that nystatin swish and spit be started. This hospitalist prepared the patient for transfer. Signed COBRA forms. As we awaited bed availability at [facility]. The patient stayed 1 more day from the time of his acceptance to [place]. During that time the and mother felt that the patient should be transition to comfort measures only and to the GIP service. Greater than 30 minutes was spent coordinating discharge. - LABS Result Diagrams: 11/23/22 05:19 11/23/22 05:19"
--- NOTE | 2022-11-22 15:42 | CONSULTATION NOTE ---
Palliative Care Consultation - Referral Referring Provider: Dr. 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 He has started his Regorafenib on 10/14 with notable improvements. Unfortunately with tumor shrinkage created a large area of shrinkage and cavitation around his stoma, making it difficult to manage. He did end up at [facility] with escalating pain, final outcome was there was nothing leadlighter to do to be able to assist with this. Patient was discharged to return to the [facility] on 11/08, was hypoxic and work-up found actually to the ED to have pneumonia, had been worried about PE, was treated with antibiotics and prednisone. Previously patient's pain had been controlled on OxyContin 10 mg twice daily, was having some developed and peripheral neuropathy if sharp shooting pains had recently been initiated on pregabalin 25 mg 3 times daily. He was doing fairly well overall, until his acute episode of pain which brought him to the ED. Patient with concern regarding developing SBO versus ileus on CT, unfortunately has had worsening pain particularly in the right lower quadrant, this is different from his original pain, which is mostly been more diffuse and around stoma site and left inguinal node area. Though he had been complaining of increased swelling more of a hernia like pain that was fluctuating. Patient is feeling the hydromorphone BEATER OUT LEVELING MACHINE is effective, though has been somewhat sedated by this, has had increased cramping and pain as was just given the Gastrografin. Patient was able to participate some in the conversation, Dolly at bedside. Patient despite second hospitalization within 2 weeks, remains quite pragmatic and participatory in decision-making.Patient had been doing well at home up to this acute episode, eating better, pain controlled, and was getting his energy back. Patient originally did have oral candidiasis, unfortunately has not picked up his nystatin, will follow-up on a outpatient prescription, but it does look like it has worsened since last seen on 11/15. Medical/Surgical History - Past Medical History Cardiovascular: reports: Hypertension, High cholesterol Respiratory: reports: Pneumonia Neuro: None Endocrine/Autoimmune: reports: None GI: reports: Other (colon cancer with mets 03/02) : reports: Indwelling catheter (for retention) HEENT: reports: None Psych: reports: ADD/ADHD Musculoskeletal: reports: None Derm: reports: None MRSA Hx?: No - Past Surgical History General: reports: Bowel surgery, Colonoscopy, Other (hepatectomy) Ortho: reports: Other Derm: reports: Other - Substance History Use: Uses substance without health or social issues: Tobacco Social History - Living Situation Living arrangement: At home Living Situation: With spouse/s.o. Support System: Patient retired from in 2013, was both in the [employer] and in the [employer]. 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 His is still working, she is a customer care team coach of children with special needs, and has been difficult taking time off but employer is quite supportive. They do have 2 children, their son lives at home is currently working, and a daughter at [employer] [facility]. Most of his family is back in [facility] where he came from, his mother is an RN, discussion to day about having her come out for support and help.He is currently with [employer]. Was recently assigned a whanau support worker at the [employer], Elizabeth [phone] did leave her message patient was hospitalized Family History - Family History Family History: Mother: Alive and Well (colon ca with colon resection) Medications/Allergies - Medications Active Medication List: Active Medications Enoxaparin Sodium (Enoxaparin 40 Mg/0.4 Ml Syringe) 40 mg SUBQ DAILY HARMEET Hydromorphone HCl (Hydromorphone Child Care Worker 20mg/100ml) 20 mg IV PRN PRN; Protocol PRN Reason: PAIN >8 Last Admin: 11/21/22 17:38 Dose: 20 mg Hydromorphone HCl (Hydromorphone 0.5 Mg/0.5 Ml Syringe) 0.5 mg IVP Q1H PRN PRN Reason: Breakthrough Pain Sodium Chloride (Normal Saline 0.9%) 1,000 mls @ 125 mls/hr IV .Q8H HARMEET Last Admin: 11/22/22 01:24 Dose: 125 mls/hr Piperacillin Sod/Tazobactam (Sod 3.375 gm/ Sodium Chloride) 100 mls @ 200 mls/hr IV Q6H [facility] Last Infusion: 11/22/22 06:23 Dose: Infused Metoprolol Tartrate (Metoprolol 5 Mg/5 Ml Vial) 5 mg IVP Q6H PRN PRN Reason: Hypertensive Emergency Ondansetron HCl (Ondansetron Odt 4 Mg Tablet) 4 mg TL Q6HR PRN PRN Reason: Nausea / Vomiting Ondansetron HCl (Ondansetron 4 Mg/2 Ml Vial) 4 mg IVP Q6HR PRN PRN Reason: Nausea / Vomiting Prochlorperazine Edisylate (Prochlorperazine 10 Mg/2 Ml Vial) 10 mg IVP Q6HR PRN PRN Reason: Nausea / Vomiting Sodium Chloride (Sodium Chloride Flush 0.9% 10 Ml Syringe) 10 ml IVP PRN PRN PRN Reason: NEEDED PER PROVIDER ORDERS Sodium Chloride (Sodium Chloride Flush 0.9% 10 Ml Syringe) 10 ml IVP 0100,0900,1700 [facility] Last Admin: 11/21/22 23:58 Dose: Not Given Ondansetron Odt [Zofran Odt] 4 mg PO PRN PRN 02/24/22 Regorafenib [Stivarga] 160 mg PO DAILY 08/25/22 Methylphenidate [Ritalin] 10 mg PO DAILY 11/21/22 Multivitamin with Minerals [Multivitamins with Minerals] 1 tab PO DAILY 11/21/22 Nystatin [Mycostatin] 5 ml ORAL QID 11/21/22 Oxycodone HCl [Oxycodone HCl ER] 10 mg PO BID 11/21/22 Pregabalin [Lyrica] 25 mg PO BID 11/21/22 dexAMETHasone [Decadron] 2 mg PO DAILY 11/21/22 lisinopriL [Lisinopril] 10 mg PO DAILY 11/21/22 - Allergies Allergies/Adverse Reactions: Allergies Allergy/AdvReac Type Severity Reaction Status Date / Time No Known Drug Allergies Allergy Verified 11/20/22 21:57 Review of Systems - Constitutional Constitutional: reports: Fatigue, Weakness, Weight loss - Ears, Nose & Throat Ears, Nose & Throat: reports: Mouth lesions (persistent oral candidiasis), Dry mouth - Respiratory Respiratory: reports: SOB with exertion - Gastrointestinal Gastrointestinal: reports: Other (colostomy without output last couple days other than water per his report) - Genitourinary Genitourinary: reports: Other (currently coleman) - Musculoskeletal Musculoskeletal: reports: Stiffness, Muscle weakness - Integumentary Integumentary: reports: Other (complicated colostomy change) - Neurological Neurological: reports: Other (lethargy from medication) - Psychiatric Psychiatric: reports: Depression, Anxiety Physical Exam - Vital Signs Vital Signs: Vital Signs x48h Temp Pulse Resp BP Pulse Ox O2 Flow Rate 11/22/22 08:21 36.5 C 109 H 18 104/67 92 2 11/22/22 07:00 2 11/22/22 06:39 16 11/22/22 06:00 16 11/22/22 05:00 36.6 C 100 16 106/64 95 2 11/22/22 04:00 16 11/22/22 03:00 16 11/22/22 02:00 16 - Physical Exam General Appearance: positive: Lethargic, Cachetic Eyes Bilateral: positive: No scleral icterus ENT: positive: Oral lesions (thickened white plaques), Dry mucous membranes Neck: positive: Trachea midline Respiratory: positive: No respiratory distress Abdomen: positive: Soft, Tenderness (right lower quadrant), Other (tumor flush with ostomy; watery fluid only in bag) Skin: positive: Pallor, Dryness Extremities: positive: No pedal edema Neurologic/Psychiatric: positive: Oriented x3, Depressed mood/affect, Flat affect Palliative Care - POLST Patient has POLST: Yes POLST Status: DNR, Selective Treatment Pain: Pain worsening, Severity, Comment (fluctuating currently with gastrograffin with cramping; background pain RLQ was worse - feels controlled on BEATER OUT LEVELING MACHINE) Feelings of wellbeing/Perceived Quality of Life: Poor, Worsening Performance Status: Patient had returned to his previous level of functioning beginning of the week, was ambulating, able to get around the house, no recent falls. Was to start physical therapy at home. Currently quite weak, has been mostly bedbound given current situation. - Palliative Care Discussion: Met with patient and , regarding current situation. They are hopeful to find something that can be resolved, though with their previous experience that you have dub, they do understand the seriousness of his condition, and particularly in the context of more uncertainty around his tumor. Patient was glad that we had had a conversation on 11 15 about goals of care, is quite anxious she is the DPOA [phone], but is quite worried about this and being able to understand. His mother who is an RN, has offered to come out, we discussed that this is probably a good time for this to happen no matter which direction whether things do not hand turner well and progresses to hospice, or if needing more help at home if recovering from his current acute situation. He does have 2 children, continues to worry about the impact on them, his son is coming in this afternoon with . His goals have been to treat reversible conditions, had been hopeful that his treatment was going to work, but is getting mentally and physically exhausted. We had talked about end-of-life at her last visit, and patient does not want his suffering prolonged would like to have a at home with hospice when that time comes, he though will continue to choose treatment as long as it is an option and he is quite pragmatic, as well as it makes sense. 14:15 pm Met with patient, is quite sedated but comfortable on his hydromorphone BEATER OUT LEVELING MACHINE. Did express my concern, and discussed the plan for patient to move to a higher level of care over to [facility]. Awaiting acceptance at this time, discussed with patient again and revisiting goals. Patient at this time would continue to like to move forward, and see what they can do. He reports he is not quite ready to "give up", though does understand the seriousness of his situation. We discussed the alternative, which is to transition and focus on comfort care, patient feels like he needs to continue for the sake of his family, to explore all options to see if there is anything else they can do for him. He does understand that this may be limited, we did discuss that at any point if he felt he wanted to transition, to reach out and would make arrangements for transition back home. This was relayed to the hospitalist the patient is in agreement with transfer to higher level of care. 15:00 pm Called and spoke to Dolly, she has had a very difficult day with not being able to finish her follow-through on appointments. We discussed what was currently going on, that things were not moving through his gut and stomach, and to be able to explore if there is anything else to do for him, he needed to move over to [facility]. She is been praying, reports she has lots of people praying for him, is wanting to continue being hopeful, though does understand the seriousness of his current condition. We did discuss weighing benefits and burdens of taking him home if there was nothing more to do, she is somewhat fearful of this, though she does know this is what her had expressed as far as wishes. She asked that I call his mother Cathy, Cathy is a nurse, and often helps navigate some of this information. 15:15 pm Spoke with patient's mother Cathy [phone]. She does understand the severity and gravity of the situation, she is packing up everything so that she and her can be there for Jake and there to and the kids. She is a RN, would be able to help with end-of-life care, and also negotiating advocating for patient in the hospital as well. She does understand their reticence for what is best to do for the kids, whether to have patient home or not for end-of- life. She is in [place], she will reach out when she knows her arrival, and also if they decide at any point to transition home with hospice, can help facilitate on this then. Results - Lab Results Lab results reviewed: Yes Fish Bones: 11/22/22 05:44 11/22/22 05:44 Lab and Imaging Results: Lab Results x24hrs 11/22/22 11/22/22 11/21/22 Range/Units 05:44 05:44 09:36 WBC 21.2 H (4.8-10.8) x10^3/uL RBC 4.56 L (4.70-6.10) 10^6/uL Hgb 14.0 (14.0-18.0) g/dL Hct 43.8 (42.0-52.0) % MCV 96.1 H (80.0-94.0) fL MCH 30.7 (27.0-31.0) pg MCHC 32.0 (32.0-36.0) g/dL RDW 17.4 H (12.0-15.0) % Plt Count 142 (130-450) 10^3/uL MPV 11.2 (7.4-11.4) fL Neut # (Auto) Not Reportable Lymph # (Auto) Not Reportable Clay # (Auto) Not Reportable Eos # (Auto) Not Reportable Baso # (Auto) Not Reportable Absolute Nucleated RBC Not Reportable Total Counted 100 Band Neuts % (Manual) 14 H (0 - 10) % Reactive Lymphs % (Man) % Abnorm Lymph % (Manual) 0 % Metamyelocytes % 3 H ( - 0) % Myelocytes % ( - 0) % Nucleated RBC % Not Reportable Neutrophils # (Manual) 17.8 H (1.5-6.6) 10^3/uL Lymphocytes # (Manual) 1.7 (1.5-3.5) 10^3/uL Monocytes # (Manual) 1.1 H (0.0-1.0) 10^3/uL Eosinophils # (Manual) 0.0 (0-0.7) 10^3/uL Basophils # (Manual) 0.0 (0-0.1) 10^3/uL Differential Comment MANUAL DIFFERENTIAL WBC Morphology NORMAL APPEARANCE (NORMAL) Platelet Estimate NORMAL (130-450,000) (NORMAL) Platelet Morphology NORMAL APPEARANCE (NORMAL) RBC Morph Micro Appear NORMAL APPEARANCE (NORMAL) Sodium 138 136 (135-145) mmol/L Potassium 3.7 3.8 (3.5-5.0) mmol/L Chloride 108 103 (101-111) mmol/L Carbon Dioxide 20 L 25 (21-32) mmol/L Anion Gap 10.0 8.0 (6-13) BUN 32 H 19 (6-20) mg/dL Creatinine 0.9 0.5 L (0.6-1.2) mg/dL Estimated GFR (MDRD) 89 175 (>89) Glucose 85 107 H (70-100) mg/dL Calcium 7.8 L 8.0 L (8.5-10.3) mg/dL 11/21/22 Range/Units 09:36 WBC 31.4 H (4.8-10.8) x10^3/uL RBC 4.04 L (4.70-6.10) 10^6/uL Hgb 12.5 L (14.0-18.0) g/dL Hct 38.8 L (42.0-52.0) % MCV 96.0 H (80.0-94.0) fL MCH 30.9 (27.0-31.0) pg MCHC 32.2 (32.0-36.0) g/dL RDW 16.8 H (12.0-15.0) % Plt Count 128 L (130-450) 10^3/uL MPV 9.8 (7.4-11.4) fL Neut # (Auto) Not Reportable Lymph # (Auto) Not Reportable Clay # (Auto) Not Reportable Eos # (Auto) Not Reportable Baso # (Auto) Not Reportable Absolute Nucleated RBC Not Reportable Total Counted 100 Band Neuts % (Manual) 10 (0 - 10) % Reactive Lymphs % (Man) 2 % Abnorm Lymph % (Manual) 0 % Metamyelocytes % ( - 0) % Myelocytes % 1 H ( - 0) % Nucleated RBC % Not Reportable Neutrophils # (Manual) 28.6 H (1.5-6.6) 10^3/uL Lymphocytes # (Manual) 1.6 (1.5-3.5) 10^3/uL Monocytes # (Manual) 0.9 (0.0-1.0) 10^3/uL Eosinophils # (Manual) 0.0 (0-0.7) 10^3/uL Basophils # (Manual) 0.0 (0-0.1) 10^3/uL Differential Comment MANUAL DIFFERENTIAL WBC Morphology (NORMAL) Platelet Estimate (NORMAL) Platelet Morphology (NORMAL) RBC Morph Micro Appear (NORMAL) Sodium (135-145) mmol/L Potassium (3.5-5.0) mmol/L Chloride (101-111) mmol/L Carbon Dioxide (21-32) mmol/L Anion Gap (6-13) BUN (6-20) mg/dL Creatinine (0.6-1.2) mg/dL Estimated GFR (MDRD) (>89) Glucose (70-100) mg/dL Calcium (8.5-10.3) mg/dL Impression and Recommendations - Palliative Care Impression: This is a 52-year-old gentleman with metastatic colon cancer, currently on third line treatment for his disease, had been encouraged to showing response but has had ongoing complications. Now presents acutely, is quite fragile, patient's colostomy is becoming more difficult to manage, and has presented newly with progressive peripheral neuropathy attributed to his to medication. Palliative care has been providing support for symptom management, psychosocial support and anticipatory guidance. Recommendations/Counseling Done: 1. Acute on chronic pain, due to neoplastic disease. This is multifactorial, patient is currently with BEATER OUT LEVELING MACHINE, managing appropriately with fluctuating pain. We will continue to evaluate, for discharge appropriate pain management plan. 2 oral pharyngeal candidiasis. Patient has had increased dry mouth and discomfort, on examination does appear to have recurred. Follow-up with hospitalist regarding ordering Diflucan versus nystatin. 3. Colostomy. Patient has been serviced by [facility] ostomy nurse, current set up have been working. Does now have [facility] coming to assist with colostomy changes is quite complicated given ongoing changes to his stoma. Will need assistance if needs changing in hospital. 4. Colon cancer with liver mets, lung mets and tumor lesion at stoma site. Follow-up with Dr. Kelly MCCALLUM, hold treatment currently. Concern for complications and sequela related to both tumor burden and treatment. Patient with leukocytosis, has been started on antibiotics. 5. Advance care planning. Met with patient and , regarding uncertainty of current situation. Provided psychosocial support and encouragement. Did encourage to have mother, provide further support for patient and family. Dolly will reach out, Jake ready for her to come for support, will help Dolly as well as feels overwhelmed with current situation and patient's ongoing complications. 15:15 Gastrografin does not show any movement, patient with increased tachycardia, low blood pressure. He is comfortable, they have accepted him at [facility]. Have spoken with family, follow-up with hospitalist, will await if further support or coordination of care needed. 105 minutes with greater than 50% of this done in counseling regarding goals of care, coordination of care, review of pain and symptom management, follow-up with family, hospitalist, and oncology.
--- NOTE | 2022-11-22 16:48 | PROVIDER PROGRESS NOTE ---
Subjective - General Admit Date: 11/21/22 Procedure Date: 03/30/21 Post Op Days: 602 - Other Other Information/Narrative: Patient feels like his pain is somewhat better controlled today, but persists. His abdomen hurts, but he is unable to localize the pain to any particular area today at the time of my exam. He denies any fevers or chills. He does feel like the Dilaudid W[employer] SCIENCE [employer] PLANNING is helping. He denies any nausea. He feels like he has had more abdominal cramping since the Gastrografin challenge started. He has not had any significant ostomy output. He continues to complain of pain that he thinks is bladder spasm. Objective - Patient Data Reviewed Vital Signs: Yes Vital Signs: Vital Signs x48h Temp Pulse Resp BP Pulse Ox O2 Flow Rate 11/22/22 16:05 37.0 C 104 H 16 99/67 96 2 11/22/22 14:15 14 11/22/22 12:05 36.6 C 110 H 18 96/62 91 L 2 11/22/22 09:00 16 Weight: Weight 11/20/22 11/21/22 11/22/22 23:59 23:59 23:59 Weight (kg) 68.039 kg 60.5 kg Intake & Output: Intake and Output Totals x24h 11/20/22 11/21/22 11/22/22 23:59 23:59 23:59 Intake Total 2806.667 1713.333 Output Total 1700 725 Balance 1106.667 988.333 - Lab Results Lab Results: 11/22/22 05:44 11/22/22 05:44 Other Lab Results: Lab Results x24hrs 11/22/22 11/22/22 11/22/22 Range/Units 14:30 05:44 05:44 WBC 21.2 H (4.8-10.8) x10^3/uL RBC 4.56 L (4.70-6.10) 10^6/uL Hgb 14.0 (14.0-18.0) g/dL Hct 43.8 (42.0-52.0) % MCV 96.1 H (80.0-94.0) fL MCH 30.7 (27.0-31.0) pg MCHC 32.0 (32.0-36.0) g/dL RDW 17.4 H (12.0-15.0) % Plt Count 142 (130-450) 10^3/uL MPV 11.2 (7.4-11.4) fL Neut # (Auto) Not Reportable Lymph # (Auto) Not Reportable [place] # (Auto) Not Reportable Eos # (Auto) Not Reportable Baso # (Auto) Not Reportable Absolute Nucleated RBC Not Reportable Total Counted 100 Band Neuts % (Manual) 14 H (0 - 10) % Abnorm Lymph % (Manual) 0 % Metamyelocytes % 3 H ( - 0) % Nucleated RBC % Not Reportable Neutrophils # (Manual) 17.8 H (1.5-6.6) 10^3/uL Lymphocytes # (Manual) 1.7 (1.5-3.5) 10^3/uL Monocytes # (Manual) 1.1 H (0.0-1.0) 10^3/uL Eosinophils # (Manual) 0.0 (0-0.7) 10^3/uL Basophils # (Manual) 0.0 (0-0.1) 10^3/uL Differential Comment MANUAL DIFFERENTIAL WBC Morphology NORMAL APPEARANCE (NORMAL) Platelet Estimate NORMAL (130-450,000) (NORMAL) Platelet Morphology NORMAL APPEARANCE (NORMAL) RBC Morph Micro Appear NORMAL APPEARANCE (NORMAL) Sodium 138 (135-145) mmol/L Potassium 3.7 (3.5-5.0) mmol/L Chloride 108 (101-111) mmol/L Carbon Dioxide 20 L (21-32) mmol/L Anion Gap 10.0 (6-13) BUN 32 H (6-20) mg/dL Creatinine 0.9 (0.6-1.2) mg/dL Estimated GFR (MDRD) 89 (>89) Glucose 85 (70-100) mg/dL Calcium 7.8 L (8.5-10.3) mg/dL Urine Color YELLOW Urine Clarity CLEAR (CLEAR) Urine pH 5.5 (5.0-7.5) PH Ur Specific [place] >=1.030 H (1.002-1.030) Urine Protein 30 H (NEGATIVE) mg/dL Urine Glucose (UA) NEGATIVE (NEGATIVE) mg/dL Urine Ketones TRACE (NEGATIVE) mg/dL Urine Occult Blood MODERATE H (NEGATIVE) Urine Nitrite NEGATIVE (NEGATIVE) Urine Bilirubin NEGATIVE (NEGATIVE) Urine Urobilinogen 0.2 (NORMAL) (NORMAL) E.U./dL Ur Leukocyte Esterase NEGATIVE (NEGATIVE) Urine RBC 0-5 (0-5) /HPF Urine WBC 0-3 (0-3) /HPF Ur Squamous Epith Cells FEW Squamous (<= Few) Urine Bacteria Moderate H (None Seen) /HPF Urine Casts 0-2 Course Granular /LPF Ur Microscopic Review INDICATED Urine Culture Comments NOT INDICATED - Imaging Results Imaging Results Comments: The patient's SBFT is still in progress. On my review of the images, I do not note significant movement of contrast through the bowel, but there is increased opacification of the small bowel and colon this afternoon compared to his initial study. Await follow up XR in AM. Strongly suspect ileus. - Current Medications Current Medications: Current Medications Generic Name Dose Route Start Last Admin Trade Name Freq PRN Reason Stop Dose Admin Enoxaparin Sodium 40 mg 11/22/22 09:00 11/22/22 10:10 Enoxaparin 40 Mg/0.4 Ml Syringe SUBQ 40 mg DAILY HARMEET Administration Hydromorphone HCl 20 mg 11/21/22 14:53 11/21/22 17:38 Hydromorphone Locomotive Boilermaker 20mg/100ml IV 20 mg PRN PRN Administration PAIN >8 Protocol Sodium Chloride 1,000 mls @ 125 mls/hr 11/21/22 08:00 11/22/22 10:23 Normal Saline 0.9% IV 125 mls/hr .Q8H HARMEET Administration Piperacillin Sod/Tazobactam 100 mls @ 200 mls/hr 11/21/22 18:00 11/22/22 13:58 Sod 3.375 gm/ Sodium Chloride IV Infused Q6H HARMEET Infusion Metronidazole 500 mg in 100 mls @ 100 mls/hr 11/22/22 14:00 11/22/22 13:58 Flagyl 500 Mg/100 Ml IV 100 mls/hr Q8H HARMEET Administration Sodium Chloride 10 ml 11/21/22 17:00 11/22/22 09:32 Sodium Chloride Flush 0.9% 10 Ml Syringe IVP Not Given 0100,0900,1700 [facility] - Physical Exam General Appearance: positive: Mild distress (due to pain), Lethargic Eyes Bilateral: positive: Other (NG in place. approximately 20mL clear fluid in canister. NG currently clamped for SBFT study.) ENT: positive: Dry mucous membranes Neck: positive: Trachea midline Respiratory: positive: No respiratory distress Cardiovascular: positive: Tachycardia Abdomen: positive: Tenderness (diffuse abdominal pain, R side worse than left.), Guarding (involuntary), Rebound (+ right sided), Other (ostomy pink with minimal serous output in the last 24 hours). negative: Mass Skin: positive: No rash Extremities: positive: Non-tender Neurologic/Psychiatric: positive: Oriented x3 Impression/Plan - Problem List Problem List: 52 y/o M with: 1. Small bowel obstruction vs ileus, abdominal pain - NG in place. - SBFT pending. Images may demonstrate some opacification of small bowel and colon. No significant contrast movement at 6 hours. - R inguinal hernia, remains reduced - Abdominal pain worse today with concern for developing peritonitis. No sign of free air on imaging. Possible sources for pain include cholecystitis (unable to rule out due to inability to obtain HIDA here; prior HIDA three weeks ago was negative but patient has had material worsening since that time), microperforation which is not apparent on recent CT but the patient's current chemo puts him at increased risk for this, and tumor lysis (though his pain is more than I would expect for this entity). - Keep NPO with ice chips for comfort - continue mIVF, WIND SCIENCE AND PLANNING for pain - agree with broad spectrum abx, will add flagyl - I have discussed the patient with another general surgeon and we do not see any obvious indication for emergent surgery which would be very high risk in this very fragile patient. I have also discussed the patient with his oncologist. In order to rule out and treat cholecystitis (with HIDA and perc lang if needed) and to provide input from specialist teams, I recommend transf er to a higher level of care, specifically [facility] in [place] where the patient's oncologist has privileges. 2. leukocytosis - slightly improved this AM - agree with bread spectrum abx 3. stage IV colon ca - currently on Stivarga, which is associated with multiple GI complaints. Some increased risk for GI perforation/fistula. - patient has complex wound care needs for colostomy 4. chronic pain - followed by Jennifer Pereira of palliative care, who has consulted in his care 5. HTN, HPL, ADD - as per primary. Recommend holding home meds until able to tolerate PO. Thank you for consulting me in the care of this gentleman. I will continue to follow closely.
[2022-11-22] MEDS: NYSTATIN 500000 UNITS/5 ML UDC PO SCH ×2 (17:32→21:38)
[2022-11-22] MEDS: HYDROmorphone 0.5 MG/0.5 ML SYRINGE IVP PRN ×2 (20:10→23:48)
[2022-11-23] MEDS: HYDROmorphone 0.5 MG/0.5 ML SYRINGE IVP PRN ×7 (01:40→12:13)
[2022-11-23] MEDS: PIPERACILLIN/TAZOBACTAM 3.375 GM in SODIUM CHLORIDE 0.9% MINIBAG 100 ML IV SCH (05:23)
[2022-11-23 05:30] LABS: HCT - HEMATOCRIT 38.1 % (42.0-52.0); HGB - HEMOGLOBIN 12.4 g/dL (14.0-18.0); LYMPHOCYTES % (AUTO) 3.7 %; MEAN CORPUSCULAR HEMOGLOBIN 30.5 pg (27.0-31.0); MEAN CORPUSCULAR HGB CONC 32.5 g/dL (32.0-36.0); MEAN CORPUSCULAR VOLUME 93.8 fL (80.0-94.0); MEAN PLATELET VOLUME 10.8 fL (7.4-11.4); MONOCYTES % (AUTO) 4.5 %; NEUTROPHILS % (AUTO) 91.3 %; PLT - PLATELET COUNT 94 10^3/uL (130-450); RED BLOOD COUNT 4.06 10^6/uL (4.70-6.10); RED CELL DISTRIBUTION WIDTH 16.9 % (12.0-15.0); WHITE BLOOD COUNT 27.5 x10^3/uL (4.8-10.8)
[2022-11-23 05:39] LABS: ABNORMAL LYMPHS % (MANUAL) 0 %
[2022-11-23 05:44] LABS: CALCIUM 7.7 mg/dL (8.5-10.3); CREATININE 0.9 mg/dL (0.6-1.2); POTASSIUM 3.3 mmol/L (3.5-5.0)
[2022-11-23 05:54] LABS: BAND NEUTROPHILS % (MANUAL) 4 %; DIFFERENTIAL COMMENT MANUAL DIFFERENTIAL; LYMPHOCYTES # (MANUAL) 1.4 10^3/uL (1.5-3.5); LYMPHOCYTES % (MANUAL) 5 %; MONOCYTES # (MANUAL) 0.3 10^3/uL (0.0-1.0); NEUTROPHILS # (MANUAL) 25.9 10^3/uL (1.5-6.6); PLATELET ESTIMATE, MANUAL DECREASED (<130,000) (NORMAL); PLATELET MORPHOLOGY NORMAL APPEARANCE (NORMAL); RBC MORPHOLOGY (MULTIPLE) NORMAL APPEARANCE (NORMAL); WBC MORPHOLOGY (MULTIPLE) NORMAL APPEARANCE (NORMAL)
[2022-11-23] MEDS: SODIUM CHLORIDE 0.9% 1,000 ML IV SCH (06:08)
[2022-11-23] MEDS: metroNIDAZOLE 500 MG/100 ML 500 MG/100 ML BAG IV SCH (06:09)
[2022-11-23] MEDS: ENOXAPARIN 40 MG/0.4 ML SYRINGE SUBQ SCH (08:37)
[2022-11-23] MEDS: SODIUM CHLORIDE FLUSH 0.9% 10 ML SYRINGE IVP SCH (08:38)
[2022-11-23 08:43] VITALS: BP 138/81
[2022-11-23] MEDS: NYSTATIN 500000 UNITS/5 ML UDC PO SCH (08:43)
--- NOTE | 2022-11-23 10:16 | XRAY Report ---
PROCEDURE: SBFT Challenge Panel INDICATIONS: R/O OBSTRUCTION COMPARISON: CT 11/20/2022 CONTRAST: Gastrografin FLUOROSCOPY TIME: Not applicable FINDINGS: KUB: Preprocedural geological scout film demonstrates central loops of large bowel containing fecal debris and gas. No air-fluid levels. Trace intraluminal contrast is seen within the large bowel. Left lower lobe solid nodule is present, as seen on comparison CT. Small bowel: Gastrografin was injected through the gastric tube. No significant movement of contrast after 2 hours. After 6 hours, there is contrast seen within mildly distended loops of small bowel. At 12 hours, contrast remains in the mildly distended loops of small bowel contrast. 24 hours following contrast administration, new contrast is seen within the large bowel. IMPRESSION: Interval passage of contrast into the large bowel 24 hours after Gastrografin ingestion. Findings fav or adynamic ileus. Reviewed by: River Figueroa on 11/23/2022 10:14 AM PDT Approved by: River Figueroa on 11/23/2022 10:14 AM PDT Station ID: [id number]
--- NOTE | 2022-11-23 10:20 | PROVIDER PROGRESS NOTE ---
Subjective - General Admit Date: 11/21/22 - Other Other Information/Narrative: Patient's pain continues to be difficult to control. NEWSPAPER CORRESPONDENT stopped in anticipation of transfer. Patient denies n/v with NG clamped since start of SBFT yesterday AM. Anxious to be transferred. Not sleeping well 2/2 pain. Objective - Patient Data Vital Signs: Vital Signs x48h Temp Pulse Resp BP Pulse Ox 11/23/22 08:25 36.6 C 109 H 20 138/81 H 91 L 11/23/22 05:27 36.4 C L 108 H 18 137/86 H 92 Weight: Weight 11/21/22 11/22/22 11/23/22 23:59 23:59 23:59 Weight (kg) 60.5 kg Intake & Output: Intake and Output Totals x24h 11/21/22 11/22/22 11/23/22 23:59 23:59 23:59 Intake Total 2806.667 3269.583 943.75 Output Total 1700 1025 675 Balance 4419.132 9842.583 268.75 - Lab Results Lab Results: 11/23/22 05:19 11/23/22 05:19 Other Lab Results: Lab Results x24hrs 11/23/22 11/23/22 11/22/22 Range/Units 05:19 05:19 14:30 WBC 27.5 H (4.8-10.8) x10^3/uL RBC 4.06 L (4.70-6.10) 10^6/uL Hgb 12.4 L (14.0-18.0) g/dL Hct 38.1 L (42.0-52.0) % MCV 93.8 (80.0-94.0) fL MCH 30.5 (27.0-31.0) pg MCHC 32.5 (32.0-36.0) g/dL RDW 16.9 H (12.0-15.0) % Plt Count 94 L (130-450) 10^3/uL MPV 10.8 (7.4-11.4) fL Neut # (Auto) Not Reportable Lymph # (Auto) Not Reportable [place] # (Auto) Not Reportable Eos # (Auto) Not Reportable Baso # (Auto) Not Reportable Absolute Nucleated RBC Not Reportable Total Counted 100 Band Neuts % (Manual) 4 (0 - 10) % Abnorm Lymph % (Manual) 0 % Nucleated RBC % Not Reportable Neutrophils # (Manual) 25.9 H (1.5-6.6) 10^3/uL Lymphocytes # (Manual) 1.4 L (1.5-3.5) 10^3/uL Monocytes # (Manual) 0.3 (0.0-1.0) 10^3/uL Eosinophils # (Manual) 0.0 (0-0.7) 10^3/uL Basophils # (Manual) 0.0 (0-0.1) 10^3/uL Differential Comment MANUAL DIFFERENTIAL WBC Morphology NORMAL APPEARANCE (NORMAL) Platelet Estimate DECREASED (<130,000) (NORMAL) Platelet Morphology NORMAL APPEARANCE (NORMAL) RBC Morph Micro Appear NORMAL APPEARANCE (NORMAL) Sodium 140 (135-145) mmol/L Potassium 3.3 L (3.5-5.0) mmol/L Chloride 111 (101-111) mmol/L Carbon Dioxide 21 (21-32) mmol/L Anion Gap 8.0 (6-13) BUN 39 H (6-20) mg/dL Creatinine 0.9 (0.6-1.2) mg/dL Estimated GFR (MDRD) 89 (>89) Glucose 111 H (70-100) mg/dL Calcium 7.7 L (8.5-10.3) mg/dL Urine Color YELLOW Urine Clarity CLEAR (CLEAR) Urine pH 5.5 (5.0-7.5) PH Ur Specific [place] >=1.030 H (1.002-1.030) Urine Protein 30 H (NEGATIVE) mg/dL Urine Glucose (UA) NEGATIVE (NEGATIVE) mg/dL Urine Ketones TRACE (NEGATIVE) mg/dL Urine Occult Blood MODERATE H (NEGATIVE) Urine Nitrite NEGATIVE (NEGATIVE) Urine Bilirubin NEGATIVE (NEGATIVE) Urine Urobilinogen 0.2 (NORMAL) (NORMAL) E.U./dL Ur Leukocyte Esterase NEGATIVE (NEGATIVE) Urine RBC 0-5 (0-5) /HPF Urine WBC 0-3 (0-3) /HPF Ur Squamous Epith Cells FEW Squamous (<= Few) Urine Bacteria Moderate H (None Seen) /HPF Urine Casts 0-2 Course Granular /LPF Ur Microscopic Review INDICATED Urine Culture Comments NOT INDICATED - Imaging Results Imaging Results Comments: SBFT demonstrates no significant movement on contrast during day yesterday, f/u images pending this AM. I personally reviewed the images from this study. No report yet complete. - Current Medications Current Medications: Current Medications Generic Name Dose Route Start Last Admin Trade Name Freq PRN Reason Stop Dose Admin Enoxaparin Sodium 40 mg 11/22/22 09:00 11/23/22 08:37 Enoxaparin 40 Mg/0.4 Ml Syringe SUBQ 40 mg DAILY HARMEET Administration Hydromorphone HCl 0.5 mg 11/21/22 14:55 11/23/22 09:22 Hydromorphone 0.5 Mg/0.5 Ml Syringe IVP 0.5 mg Q1H PRN Administration Breakthrough Pain Sodium Chloride 1,000 mls @ 125 mls/hr 11/21/22 08:00 11/23/22 06:08 Normal Saline 0.9% IV 125 mls/hr .Q8H HARMEET Administration Piperacillin Sod/Tazobactam 100 mls @ 200 mls/hr 11/21/22 18:00 11/23/22 05:59 Sod 3.375 gm/ Sodium Chloride IV Infused Q6H HARMEET Infusion Metronidazole 500 mg in 100 mls @ 100 mls/hr 11/22/22 14:00 11/23/22 06:09 Flagyl 500 Mg/100 Ml IV 100 mls/hr Q8H HARMEET Administration Nystatin 5 ml 11/22/22 17:00 11/23/22 08:43 Nystatin 532408 Units/5 Ml Udc PO 5 ml QID HARMEET Administration Sodium Chloride 10 ml 11/21/22 17:00 11/23/22 08:38 Sodium Chloride Flush 0.9% 10 Ml Syringe IVP 10 ml 0100,0900,1700 HARMEET Administration - Physical Exam General Appearance: positive: Mild distress (due to pain), Lethargic Eyes Bilateral: positive: PERRL ENT: positive: Dry mucous membranes, Other (NG in place, clamped) Respiratory: positive: No respiratory distress Cardiovascular: positive: Tachycardia Abdomen: positive: No distention, Tenderness (diffuse abdominal ttp, R>L), Guar ding, Rebound (R sided), Other (ostomy pink, no significant output since admission) Skin: positive: No rash, Warm Extremities: positive: Other (cool to touch) Neurologic/Psychiatric: positive: Oriented x3 Impression/Plan - Problem List Problem List: 52 y/o M with: 1. Small bowel obstruction vs ileus, abdominal pain - NG in place. - SBFT pending. Images may demonstrate some opacification of small bowel and colon. No significant contrast movement at 6 hours. - R inguinal hernia, remains reduced - Abdominal pain worse today with concern for developing peritonitis, source unclear. No sign of free air/macroperfoation on imaging. Possible sources for pa in include cholecystitis (unable to rule out due to inability to obtain HIDA here; prior HIDA three weeks ago was negative but patient has had material worsening since that time), microperforation which is not apparent on recent CT but the patient's current chemo puts him at increased risk for this, and tumor lysis (though his pain is more than I would expect for this entity). - Keep NPO with ice chips for comfort - continue mIVF, NEWSPAPER CORRESPONDENT for pain (currently held for transfer) - agree with broad spectrum abx with need for aerobic and anaerobic coverage - I have discussed the patient with another general surgeon and we do not see any clear indication for emergent surgery which would be very high risk in this very fragile patient. I have also discussed the patient with his oncologist. In order to rule out and treat cholecystitis (with HIDA and perc lang if needed) and to provide input from specialist teams, I recommend transfer to a higher level of care, specifically [facility] in [place] where the patient's oncologist has privileges. Due to his increasingly unstable vital signs, I believe an ICU level of care may be appropriate. 2. leukocytosis - slightly increased this AM - continue bread spectrum abx 3. stage IV colon ca - currently on Stivarga, which is associated with multiple GI complaints. Some increased risk for GI perforation/fistula. - patient has complex wound care needs for colostomy 4. chronic pain - followed by Jennifer Pereira of palliative care, who has consulted in his care - NEWSPAPER CORRESPONDENT held for transfer 5. HTN, HPL, ADD - as per primary. Recommend holding home meds until able to tolerate PO. Thank you for consulting me in the care of this gentleman. I will continue to follow closely.
--- NOTE | 2022-11-23 12:11 | Discharge Plan ---
Discharge Plan Problem Reviewed?: No Disposition: 02 Transfer Acute Care Hosp Condition: Serious No Smoking: If you smoke, Please STOP! Call for help.
[2022-11-23] MEDS ORDERED: HYDROmorphone 0.5 MG/0.5 ML SYRINGE IVP STA (12:29)
--- NOTE | 2022-11-28 08:58 | ED Physician Documentation ---
ED Addendum - Addendum Addendum: 11/28/22 08:56 The patient was having belly pain and has bowel obstruction by CT scan. On change of shift he is already been consulted on by Dr. Nelson for surgery and is being placed in observation by Dr. Nelson. treatment orders by her. Dr. Ramírez came to the department as the patient was still here and evaluated the patient and stated she would be consulting. She asked for the hospitalist to see the patient and provide orders. Dr. Vyas was notified and advised of this and wrote orders for the patient. The patient had pain medicines ordered. He subsequent went to the floor when beds were available.
== END 2022-11-23 12:20 | disposition hospice, inpatient (51) ==
LOC: ED 21:53 → MS2 11-21 14:53
PROVIDERS: ADMIT Specialist; ATTEND Specialist
DX: K56.609 Unspecified intestinal obstruction, unspecified as to partial versus complete obstruction (principal); C18.6 Malignant neoplasm of descending colon; C78.00 Secondary malignant neoplasm of unspecified lung; C77.4 Secondary and unspecified malignant neoplasm of inguinal and lower limb lymph nodes; C78.7 Secondary malignant neoplasm of liver and intrahepatic bile duct; T50.905A Adverse effect of unspecified drugs, medicaments and biological substances, initial encounter; R73.9 Hyperglycemia, unspecified; D72.829 Elevated white blood cell count, unspecified; D72.825 Bandemia; I10 Essential (primary) hypertension; Z93.3 Colostomy status; G62.2 Polyneuropathy due to other toxic agents; B37.0 Candidal stomatitis; G89.3 Neoplasm related pain (acute) (chronic); Z66 Do not resuscitate; Z74.01 Bed confinement status; Z51.5 Encounter for palliative care; Z87.891 Personal history of nicotine dependence
CPT/HCPCS: 36415; 51702; 74177; 74250; 76705; 80048; 80053; 81001; 83605; 83690; 85025; 96365; 96366; 96367; 96372; 96375; 96376; 99284; 99285; A9270; G0378; J1170; J1650; Q9963; Q9967; 81003; 87086

== ENCOUNTER 2022-11-23 11:45 | Inpatient (IN) | payer OTHER ==
[2022-11-23] MEDS ORDERED: HALOPERIDOL 5 MG/ML VIAL IVP PRN (12:30)
[2022-11-23] MEDS ORDERED: LORazepam 2 MG/ML VIAL IVP PRN (12:30)
[2022-11-23] MEDS ORDERED: OLANZapine ODT 5 MG TABLET TL PRN (12:30)
[2022-11-23] MEDS ORDERED: CARBOXYMETHYLCELLULOSE OPHTH DROPS EACHEYE PRN (12:30)
[2022-11-23] MEDS ORDERED: ATROPINE 0.4 MG/ML VIAL IVP PRN (12:30)
[2022-11-23] MEDS ORDERED: MIN OIL/DIMETHICON/COCONUT OIL 92 GM TUBE TOP PRN (12:30)
[2022-11-23] MEDS ORDERED: PETROLATUM WHITE 5 GM PACKET TOP PRN (12:30)
--- NOTE | 2022-11-23 12:49 | HISTORY & PHYSICAL EXAMINATION ---
Chief Complaint - Chief Complaint Chief Complaint: Intractable pain in the setting of metastatic colon cancer History of Present Illness - Admitted From Admitted From:: Acute inpatient - History Obtained From Records Reviewed: Yes History obtained from: Patient's spouse and medical record - History of Present Illness HPI Comment/Other: Pt is a 52 yo male who was dx'd w/colon cancer in 03/02 after presenting to [facility] w/bowel obstruction and findings of an obstructive colon mass. A large hepatic mass was noted as well. He underwent loop colostomy placement and a liver biopsy and was found to have metastatic adenocarcinoma. He has been under the care of [facility] and has received multiple courses of chemotherapy. He also underwent Left hepatectomy 12/02. His ostomy became involved and he now has known lung metastasis. He was felt not to be a candidate for XRT d/t concerns for radiation injury and resultant obstruction. Additionally, there was concern that he has developed worsening stenosis/obstruction of his stoma as he has had growth of his stoma wall tumor growth (now 9 cm). This has led to involution/retraction of his stoma. He was seen at 11/02 and also had concerns for acute cholecystitis at that time. Decision was made not to proceed w/surgery d/t him being a poor surgical candidate. He did develop SOB nad was found to have what sounds like atypical pneumonia which has since been treated. After treatment, he had about 1.5 weeks of feeling fairly well with resolution of his SOB. However, 3 days ago, he developed acute onset of abdominal pain and nausea. He felt the need to have a BM and sat on the toilet but passed a large amount of blood rectally. He was brought to the ED and there was concern for ileus vs sbo. Gastrografin challenge was initiated and has moved into the large bowel, but has not continued to move, increasing the likelihood of an ileus rather than SBO. Initial WBC cound was 21 and increased to 31 the following day. He was initiated on IV Zosyn on 11/21 and flagyl was added yesterday. Unfortunately, he has continued to exhibit worsening abdominal discomfort and now an increasing WBC despite antibiotics. Today, there were plans to transition him to ICU level care d/t concerns about evolving peritonitis and his worsening clinical picture (as well as the fact that his oncologic care is via [facility]). However, his and mother began asking for comfort directed care. Manager Ob and I presented to bedside. Pt is confused and mumbles. He attempts to answer questions but cannot answer correctly nor track conversation. He is moaning frequently. He c/o severe abdominal pain. History - Past Medical History Cardiovascular: reports: Hypertension, High cholesterol Respiratory: reports: None Neuro: reports: None Endocrine/Autoimmune: reports: None GI: reports: Other (colon cancer with mets 03/02) : reports: None HEENT: reports: None Psych: reports: ADD/ADHD Musculoskeletal: reports: None Derm: reports: None MRSA Hx?: No - Past Surgical History General: reports: Bowel surgery, Colonoscopy, Other (hepatectomy) Ortho: reports: Other Derm: reports: Other - Family & Social History Family History Comment/Other: His mother was diagnosed with colon cancer and needed a colon resection. He believes his younger brother may also have a history of colon cancer. He has a brother with a history of heart disease who recently underwent CABG. Both of his grandfathers also had a history of heart disease. Living Situation: With spouse/s.o. Social History Notes: He lives at home with his . He does not currently work. He smoked about half a pack a day since the age of 9. He rarely drinks alcohol. - POLST Patient has POLST: No POLST Status: Full Code Meds/Allgy - Home Medications Home Medications: Ambulatory Orders Medication Instructions Recorded Confirmed Ondansetron Odt [Zofran Odt] 4 mg PO PRN PRN 02/24/22 11/21/22 oxyCODONE [Roxicodone] 5 mg PO Q6H PRN 15 Days #180 tablet 08/23/22 11/21/22 Regorafenib [Stivarga] 160 mg PO DAILY 08/25/22 11/21/22 Methylphenidate [Ritalin] 10 mg PO DAILY 11/21/22 11/21/22 Multivitamin with Minerals 1 tab PO DAILY 11/21/22 11/21/22 [Multivitamins with Minerals] Nystatin [Mycostatin] 5 ml ORAL QID 11/21/22 11/21/22 Oxycodone HCl [Oxycodone HCl ER] 10 mg PO BID 11/21/22 11/21/22 Pregabalin [Lyrica] 25 mg PO BID 11/21/22 11/21/22 dexAMETHasone [Decadron] 2 mg PO DAILY 11/21/22 11/21/22 lisinopriL [Lisinopril] 10 mg PO DAILY 11/21/22 11/21/22 - Allergies Allergies/Adverse Reactions: Allergies Allergy/AdvReac Type Severity Reaction Status Date / Time No Known Drug Allergies Allergy Verified 11/20/22 21:57 Review of Systems - Other Findings Other Findings: Unable to obtain ROS d/t confusion Exam - Physical Exam General Appearance: positive: Moderate distress, Lethargic Eyes Bilateral: positive: Normal inspection, Conjunctivae nml ENT: positive: Dry mucous membranes Neck: positive: Nml inspection, No JVD, Trachea midline Respiratory: positive: No respiratory distress, Breath sounds nml Cardiovascular: positive: No murmur, No gallop, Tachycardia Abdomen: positive: Other (abdomen is rigid, diffuse tenderness, +guarding/+rebound, no BT heard, small amount of banegas stool noted in ostomy bag) Extremities: positive: Non-tender, No pedal edema Sepsis Event Note (H) - Evaluation Current Stage of Sepsis: Sepsis Possible source of Sepsis: positive: GI tract/intra-abdominal - Sepsis Criteria Sepsis Criteria: Recorded Heart Rate greater than 90 bpm, WBC count greater than 12,000 or less than 4000, AUTOMATION TEST ENGINEER: altered consciousness (unrelated to primary neuro pathology) Conclusion/Plan - Other Other Results/Comments: 1. Evolving peritonits 2. Metastatic colon cancer - mets to liver/lung 3. Severe sepsis as evidence by worsening leukocytosis, increasing abdominal pain, worsening encephalopathy, worsening leukocytosis despite IV abx 4. Ileus 5. Hypokalemia 6. Acute metabolic encephalopathy After long discussed w/patient's spouse at bedside and mother by telephone, the decision was made to transition to comfort directed care. He is clearly in moderate to severe pain and has unmet needs. He could not transition home w/active peritonitis and his ileus/altered mental status would make oral medication delivery ineffective. He has evolving worsening sepsis and yazmin tonitis. He will be admitted to Hospice and then admitted to [facility] level of care for IV continuous dilaudid infusion, wound care (difficulty w/ostomy given the enlarging tumor), and management of encephalopathy. I anticipate he will develop increasing terminal agitation, particularly d/t his young age. His notes that he was continuing to pursue aggressive care bc he did not want to "disappoint" her or her children (ages 19 and 21). I suspect he has significant existential distress over his impending . Will plan to d/c NGT if he has no nausea/vomiting between now and 1700. It has been clamped since this am when he went for imaging. He has not had any worsening abdominal pain/nausea. Discussed plan of care w/Hospitalist, PC team, primary RN and food safety officer.
[2022-11-23] MEDS ORDERED: HYDROmorphone PCA 20MG/100ML IV SCH (13:00)
[2022-11-23] MEDS: HYDROmorphone PCA 20MG/100ML IV SCH (14:19)
[2022-11-23] MEDS ORDERED: SODIUM CHLORIDE 0.9% 500 ML IV PRN (20:12)
[2022-11-24 08:12] VITALS: BP 93/53
[2022-11-24] MEDS: HYDROmorphone PCA 20MG/100ML IV SCH ×2 (09:16→11:35)
--- NOTE | 2022-11-24 14:59 | DISCHARGE SUMMARY ---
Discharge Summary Admit Date: 11/23/22 Discharge Date: 11/24/22 Discharge Disposition: 20 - DIAGNOSES Admission Diagnoses: 1. Evolving peritonits 2. Metastatic colon cancer - mets to liver/lung 3. Severe sepsis as evidence by worsening leukocytosis, increasing abdominal pain, worsening encephalopathy, worsening leukocytosis despite IV abx 4. Ileus 5. Hypokalemia 6. Acute metabolic encephalopathy - HPI History of Present Illness: Pt is a 52 yo male who was dx'd w/colon cancer in 03/[address] [facility] w/bowel obstruction and findings of an obstructive colon mass. A large hepatic mass was noted as well. He underwent loop colostomy placement and a liver biopsy and was found to have metastatic adenocarcinoma. He has been under the care of [facility] oncology and has received multiple courses of chemotherapy. He also underwent Left hepatectomy 12/02. His ostomy became involved and he now has known lung metastasis. He was felt not to be a candidate for XRT d/t concerns for radiation injury and resultant obstruction. Additionally, there was concern that he has developed worsening stenosis/obstruction of his stoma as he has had growth of his stoma wall tumor growth (now 9 cm). This has led to involution/retraction of his stoma. He was seen at 11/02 and also had concerns for acute cholecystitis at that time. Decision was made not to proceed w/surgery d/t him being a poor surgical candidate. He did develop SOB nad was found to have what sounds like atypical pneumonia which has since been treated. After treatment, he had about 1.5 weeks of feeling fairly well with resolution of his SOB. However, 3 days ago, he developed acute onset of abdominal pain and nausea. He felt the need to have a BM and sat on the toilet but passed a large amount of blood rectally. He was brought to the ED and there was concern for ileus vs sbo. Gastrografin challenge was initiated and has moved into the large bowel, but has not continued to move, increasing the likelihood of an ileus rather than SBO. Initial WBC count was 21 and increased to 31 the following day. He was initiated on IV Zosyn on 11/21 and flagyl was added yesterday. Unfortunately, he has continued to exhibit worsening abdominal discomfort and now an increasing WBC despite antibiotics. Today, there were plans to transition him to ICU level care d/t concerns about evolving peritonitis and his worsening clinical picture (as well as the fact that his oncologic care is via [facility]). However, his and mother began asking for comfort directed care. Enforcement Officer and I presented to bedside. Pt is confused and mumbles. He attempts to answer questions but cannot answer correctly nor track conversation. He is moaning frequently. He c/o severe abdominal pain. - HOSPITAL COURSE Hospital Course: Pt was admitted for a GIP stay d/t progressive peritonitis, sepsis and intractable pain in the setting of metastatic colon cancer. He was initiated on a PEANUT SEPARATOR w/hydromorphone 1 mg/hr w/good results but became obtunded, then comatose fairly rapidly. On the morning of his , he required atropine sq for secretions. He was noted to have ongoing tachycardia, tachypnea, and hypotension. He peacefully on 11/24/22 at 1135 am. - ALLERGIES Allergies/Adverse Reactions: Allergies Allergy/AdvReac Type Severity Reaction Status Date / Time No Known Drug Allergies Allergy Verified 11/20/22 21:57 - MEDICATIONS Home Medications: Ambulatory Orders Medication Instructions Recorded Confirmed Ondansetron Odt [Zofran Odt] 4 mg PO PRN PRN 02/24/22 11/21/22 oxyCODONE [Roxicodone] 5 mg PO Q6H PRN 15 Days #180 tablet 08/23/22 11/21/22 Regorafenib [Stivarga] 160 mg PO DAILY 08/25/22 11/21/22 Methylphenidate [Ritalin] 10 mg PO DAILY 11/21/22 11/21/22 Multivitamin with Minerals 1 tab PO DAILY 11/21/22 11/21/22 [Multivitamins with Minerals] Nystatin [Mycostatin] 5 ml ORAL QID 11/21/22 11/21/22 Oxycodone HCl [Oxycodone HCl ER] 10 mg PO BID 11/21/22 11/21/22 Pregabalin [Lyrica] 25 mg PO BID 11/21/22 11/21/22 dexAMETHasone [Decadron] 2 mg PO DAILY 11/21/22 11/21/22 lisinopriL [Lisinopril] 10 mg PO DAILY 11/21/22 11/21/22 - SEPSIS Current Stage of Sepsis: Sepsis Possible source of Sepsis: GI tract/intra-abdominal Sepsis Criteria: Recorded Heart Rate greater than 90 bpm, WBC count greater than 12,000 or less than 4000, CONSUMER LOAN SPECIALIST: altered consciousness (unrelated to primary neuro pathology)
== END 2022-11-24 11:35 | disposition expired | DRG 871 ==
LOC: MS2 12:48
PROVIDERS: ADMIT Family Medicine; ATTEND Family Medicine
DX: A41.9 Sepsis, unspecified organism (principal); G93.41 Metabolic encephalopathy; K65.9 Peritonitis, unspecified; C18.9 Malignant neoplasm of colon, unspecified; C78.7 Secondary malignant neoplasm of liver and intrahepatic bile duct; C78.00 Secondary malignant neoplasm of unspecified lung; K56.7 Ileus, unspecified; G89.3 Neoplasm related pain (acute) (chronic); R65.20 Severe sepsis without septic shock; E87.6 Hypokalemia; Z51.5 Encounter for palliative care; R00.0 Tachycardia, unspecified; I95.9 Hypotension, unspecified